=== PATIENT | male | born 1950 | race Caucasian/White ===

== ENCOUNTER → 2022-06-06 11:32 | Outpatient (CLI) | payer MEDICARE, OTHER, SELFPAY ==
--- NOTE | 2022-06-06 11:47 | XR_ITS ---
FINAL REPORT CLINICAL HISTORY: HIGH RISK MEDICATION FINDINGS: Two views of the chest were obtained. The heart size and pulmonary vascularity are within normal limits. The mediastinum is normal. There is chronic elevation of the right diaphragm. There is mild right lung base atelectasis. There is a stable chronic calcified granuloma in the right lung base. There is no evidence of interstitial lung disease. There is no pneumothorax. The bony thorax is intact. IMPRESSION: Mild right lung base atelectasis. No evidence of interstitial lung disease. Reviewed, Interpreted and Dictated by Zander Logan MD Transcribed by Hafsa Lunsford Authenticated and [facility]
== END ==
PROVIDERS: PCP Internal Medicine Adolescent Medicine; Visit Provider Internal Medicine Adolescent Medicine
DX: Z79.899 Other long term (current) drug therapy (principal)
CPT/HCPCS: 71046

== ENCOUNTER → 2022-06-11 09:21 | Outpatient (CLI) | payer MEDICARE, OTHER, SELFPAY ==
--- NOTE | 2022-06-11 09:26 | MR_ITS ---
FINAL REPORT CLINICAL HISTORY: BILATERAL HEADACHES. PT STATES VILLALOBOS'S X'S 6 MONTHS. FINDINGS: Multiplanar MR imaging of the brain was performed without contrast. There is age-appropriate atrophy. There are scattered foci of increased T2 signal in the cerebral white matter that have a nonspecific appearance but likely represent moderate chronic ischemic/gliotic changes. There is no evidence of intracranial hemorrhage or mass. No abnormal ventricular dilatation is identified. No abnormal extra-axial fluid collection is seen. No abnormality is seen on the diffusion weighted images. The posterior fossa and brainstem are unremarkable. Normal major vessel vascular flow voids are seen. There is severe mucosal thickening in the right maxillary sinus. There is mucosal thickening in several other sinuses. IMPRESSION: Age-appropriate atrophy and moderate chronic ischemic/gliotic changes. No acute intracranial abnormality. Sinus disease as above. Reviewed, Interpreted and Dictated by Fransisco Toscano III, MD Transcribed by Martin Adam Authenticated and [facility]
== END ==
PROVIDERS: PCP Internal Medicine Adolescent Medicine; Visit Provider Internal Medicine Adolescent Medicine
DX: R51.9 Headache, unspecified (principal)
CPT/HCPCS: 70551

== ENCOUNTER → 2023-01-12 11:28 | Outpatient (POV) | payer MEDICARE, OTHER, SELFPAY | PROVIDERS: Visit Provider Specialist/Technologist | DX: Z00.00 Encounter for general adult medical examination without abnormal findings (principal) ==

== ENCOUNTER → 2023-03-20 16:16 | Outpatient (CLI) | payer MEDICARE, OTHER, SELFPAY ==
--- NOTE | 2023-03-20 16:21 | XR_ITS ---
PROCEDURE INFORMATION: Exam: XR Right Knee Exam date and time: 03/20/2023 4:33 PM Age: 72 years old Clinical indication: Other: Mass; Additional info: Mass lower RT leg TECHNIQUE: Imaging protocol: Radiologic exam of the right knee. Views: 1 or 2 views. COMPARISON: No relevant prior studies available. FINDINGS: Bones/joints: No evidence of acute fracture or malalignment. No significant knee joint effusion. Patellar enthesopathy. Soft tissues: Unremarkable. IMPRESSION: 1. No evidence of acute osseous abnormality in the right knee. 2. Patellar enthesopathy. PROCEDURE INFORMATION: Exam: XR Right Ankle Exam date and time: 03/20/2023 4:33 PM Age: 72 years old Clinical indication: Other: Mass; Additional info: Mass lower RT leg TECHNIQUE: Imaging protocol: Radiologic exam of the right ankle. Views: 1 or 2 views. COMPARISON: No relevant prior studies available. FINDINGS: Bones/joints: No evidence of acute fracture or malalignment. No evidence of abnormal bone lesion or periosteal reaction. Soft tissues: Unremarkable. IMPRESSION: No evidence of acute osseous abnormality in the right tibia or fibula. PROCEDURE INFORMATION: Exam: XR Right Tibia and Fibula Exam date and time: 03/20/2023 4:33 PM Age: 72 years old Clinical indication: Other: Mass; Additional info: Mass lower RT leg TECHNIQUE: Imaging protocol: Radiologic exam of the right tibia and fibula. Views: 2 views. COMPARISON: No relevant prior studies available. FINDINGS: Bones/joints: No evidence of acute fracture or malalignment. No ankle joint effusion. Coarse calcifications at the Achilles tendon insertion compatible with calcific tendinopathy. Plantar calcaneal enthesophyte. Soft tissues: Unremarkable. IMPRESSION: 1. No evidence of acute osseous abnormality in the right ankle. 2. Coarse calcifications at the Achilles tendon insertion compatible with calcific tendinopathy. 3. Plantar calcaneal enthesophyte.
== END ==
PROVIDERS: PCP Internal Medicine Adolescent Medicine; Visit Provider Internal Medicine Adolescent Medicine
DX: R22.41 Localized swelling, mass and lump, right lower limb (principal)
CPT/HCPCS: 73590

== ENCOUNTER 2023-05-26 11:24 | Day surgery (SDC) | payer MEDICARE, OTHER, SELFPAY ==
[2023-05-24 13:34] VITALS: BMI 35.9
--- NOTE | 2023-05-26 11:35 | EXP.GEN.HP ---
HPI HPI HPI: Patient is a very pleasant 72-year-old male referred by Dr. Huan Rizzo for upper endoscopy. He was seen in the office on 03/28/2023. He has a history of hypertension, hyperlipidemia, type 2 diabetes. He is on Eliquis. Patient had previously lived in the area years ago and had moved to [place]. Last April he moved back to the area. He does describe a longstanding history of reflux and dyspepsia type symptoms. He has been on omeprazole for quite some time. He does state that recently he had significant acid reflux type symptoms. He describes substernal burning pain and then had reflux of acid into his mouth. He had ongoing substernal discomfort for some time. He does describe longstanding history of symptoms for several years and has been on omeprazole. He does describe gas bloating, belching, burping, and dyspepsia type symptoms. He has had symptoms of postprandial epigastric pain, bloating, belching, followed by diarrhea. He still does have his gallbladder. He had undergone some sort of investigative study in [place] which sounds like he drank some contrast and had a scope done simultaneously. [facility] Disclaimer: The information contained in this section may have been updated after the patient was seen, as this information can be updated by other users. Medical History CAD (coronary artery disease) HLD (hyperlipidemia) HTN (hypertension), benign Sinusitis T2DM (type 2 diabetes mellitus) Tinnitus Surgical History History of cardiac catheterization Stented coronary artery Family History Other Cancer Coronary artery disease Family history of COPD (chronic obstructive pulmonary disease) Social History (Updated 05/26/23 @ 11:38 by Luis Alberto Jacobs CRNA) Smoking Status: Former smoker alcohol intake: never substance use type: denies use current occupational status: retired Travel in the last 8 weeks: Inside the [place] Review of Systems Review of Systems Review of systems:: pertinent systems reviewed and negative unless documented below Meds Home Medications and Allergies Home Medications Medication Instructions Recorded Confirmed Type amlodipine 5 mg-benazepril 40 mg 1 cap PO DAILY 12/07/22 03/28/23 History capsule apixaban 5 mg tablet (Eliquis) 5 mg PO BID 12/07/22 03/28/23 History atorvastatin 80 mg tablet 80 mg PO DAILY 12/07/22 03/28/23 History carvedilol 12.5 mg tablet 12.5 mg PO CONSULT PHARMACY bp 12/07/22 03/28/23 History citalopram 20 mg tablet 20 mg PO DAILY 12/07/22 03/28/23 History dronedarone 400 mg tablet (Multaq) 400 mg PO BID 12/07/22 03/28/23 History dulaglutide 1.5 mg/0.5 mL 1.5 mg SQ WEEKLY 12/07/22 03/28/23 History subcutaneous pen injector (Trulicity) fluticasone propionate 50 2 spray intranasal DAILY allergies 12/07/22 03/28/23 Rx mcg/actuation nasal #16 grams spray,suspension (Flonase Allergy Relief) levocetirizine 5 mg tablet (Xyzal) 5 mg PO DAILY #30 tabs 12/07/22 03/28/23 Rx omeprazole 40 mg capsule,delayed 40 mg PO DAILY 12/07/22 03/28/23 History release New Prescriptions to Start Prescriptions: Allergies Allergy/AdvReac Type Severity Reaction Status Date / Time No Known Allergies Allergy Verified 05/26/23 11:37 Exam Data for Last 24 hours I & O for Last 24 hours: Intake & Output 05/23/23 05/24/23 05/25/23 05/26/23 11:59 11:59 11:59 11:59 Weight 250 lb Constitutional Constitutional: no acute distress *Routine HEENT Exam Head: Present normocephalic Eye: Present EOMI and PERRL ENT: Present mucous membranes moist *Routine Neck Exam Neck: Present supple; Absent lymphadenopathy *Routine Respiratory Exam Respiratory: Present CTA bilaterally *Routine Cardiovascular Exam Cardiovascular: Present RRR *Routine Abdominal Exam Abdominal
--- NOTE | 2023-05-26 11:38 | P.PNANES_ITS ---
[facility] Disclaimer: The information contained in this section may have been updated after the patient was seen, as this information can be updated by other users. Medical History CAD (coronary artery disease) HLD (hyperlipidemia) HTN (hypertension), benign Sinusitis T2DM (type 2 diabetes mellitus) Tinnitus Surgical History History of cardiac catheterization Stented coronary artery Family History Other Cancer Coronary artery disease Family history of COPD (chronic obstructive pulmonary disease) Social History Smoking Status: Former smoker alcohol intake: never substance use type: denies use current occupational status: retired Travel in the last 8 weeks: Inside the [facility] Anesthesia Checklist Patient Identification Patient Identification: Arm Band and Verbal (Name & ) Structural Data Admitted From: Home Planned Operative Procedure/s: EGD Consent for Planned Operative Procedure(s) Verified: Yes NPO Status Verified Time NPO: 00:00 Additional verifications Anesthesia Reactions: No Airway Assessment Mallampati Score:: Class II C-Spine Mobility Assessed: Yes TMJ Mobility Assessed: Yes Dentition: Dentures-poor fitting Neurological Assessment Level of Consciousness: Awake Hx Seizures: No Numbness or tingling in extremities: No Anesthesia Plan Anesthesia Risk discussed: Yes Anesthesia Plan: Verified ASA Class: III Anesthesia Type: MAC
[2023-05-26 11:39] VITALS: BP 159/92; PULSE 76; RESP 18; TEMP 36.2; O2SAT 94
[2023-05-26 11:49] LABS: POC Glucose,Bedside 124 (70-110)
[2023-05-26 11:55] VITALS: O2SAT 97
--- NOTE | 2023-05-26 12:12 | HMH.SCOPE ---
Procedure: Date: 05/26/23 Patient Date of :: 1950 Procedure Performed:: Esophagogastroduodenoscopy with biopsies Indications:: Patient is a very pleasant 72-year-old male referred by Dr. Huan Rizzo for upper endoscopy. He was seen in the office on 03/28/2023. He has a history of hypertension, hyperlipidemia, type 2 diabetes. He is on Eliquis. Patient had previously lived in the area years ago and had moved to [place]. Last April he moved back to the area. He does describe a longstanding history of reflux and dyspepsia type symptoms. He has been on omeprazole for quite some time. He does state that recently he had significant acid reflux type symptoms. He describes substernal burning pain and then had reflux of acid into his mouth. He had ongoing substernal discomfort for some time. He does describe longstanding history of symptoms for several years and has been on omeprazole. He does describe gas bloating, belching, burping, and dyspepsia type symptoms. He has had symptoms of postprandial epigastric pain, bloating, belching, followed by diarrhea. He still does have his gallbladder. He had undergone some sort of investigative study in [place] which sounds like he drank some contrast and had a scope done simultaneously. Performing Provider:: Fransisco Jack MD Referring Provider:: Huan Rizzo MD Sedation:: MAC sedation Procedure:: Patient history was obtained and appropriate physical examination was performed. Patient's medications and allergies were reviewed. Informed consent was obtained after explaining the benefits, alternatives, and risks of the procedure including, but not limited to, bleeding, perforation, missed lesions, and adverse reaction to anesthesia medications. Patient was transported to endoscopy procedure room. Patient was connected to monitoring devices. Throughout the procedure the patient's blood pressure, pulse, and oxygen saturations were monitored continuously. Patient identification and planned procedure were verified by the staff. Patient was positioned in lateral decubitus position. Olympus endoscope was inserted via the oropharynx. Esophagus was cannulated. There was some significant tortuosity of the esophagus consistent with esophageal dysmotility. Gastroesophageal junction was encountered at approximately 38 cm from the incisors. There was nonobstructing benign-appearing Schatzki's ring at the gastroesophageal junction. Stomach was cannulated and insufflated. Retroflexion revealed a tiny sliding hiatal hernia. There was moderate diffuse gastropathy characterized by erythema and induration and edema of the gastric mucosa. There was an inflamed appearing polyp, likely fundic gland polyp. Pylorus was traversed. Duodenum appeared normal. A couple of duodenal biopsies were obtained using cold biopsy forceps. Several biopsies were obtained within the gastric lumen for histopathologic analysis and H. pylori assessment. Regarding the inflamed appearing polyp, it was removed with hot snare due to the potential for bleeding since it appeared inflamed. A couple of biopsies were obtained at the gastroesophageal junction at the site of nonobstructing Schatzki's ring. Stomach was desufflated and the endoscope was withdrawn. . Findings:: Findings of tortuous esophagus consistent with esophageal dysmotility Nonobstructing Schatzki's ring at 38 cm Tiny sliding hiatal hernia Moderate diffuse gastropathy Inflamed gastric polyp Recommendations:: Medical therapy pending pathology Complications:: None immediately apparent Estimated blood obtained (mL): 4 Colonoscopy Component Colonoscopy Component Was a colonoscopy performed during today's procedure?: No
[2023-05-26 12:13] VITALS: BP 120/91; PULSE 99; RESP 17; TEMP 36.4; O2SAT 94
[2023-05-26 12:23] VITALS: BP 109/55; PULSE 88; RESP 18; O2SAT 95
[2023-05-26 12:33] VITALS: BP 127/78; PULSE 81; RESP 18; O2SAT 97
[2023-05-26 12:43] VITALS: BP 129/76; PULSE 89; RESP 16; O2SAT 97
== END 2023-05-26 12:45 | disposition home or self-care (01) ==
PROVIDERS: PCP Internal Medicine Adolescent Medicine; Visit Provider Surgery
PROC: 0DJ08ZZ Inspection of Upper Intestinal Tract, Via Natural or Artificial Opening Endoscopic (ICD-10-PCS; CPT 43235; principal; 2023-05-26 12:30)
DX: K22.4 Dyskinesia of esophagus; K44.9 Diaphragmatic hernia without obstruction or gangrene; K31.89 Other diseases of stomach and duodenum; K21.00 Gastro-esophageal reflux disease with esophagitis, without bleeding; K31.7 Polyp of stomach and duodenum; E11.9 Type 2 diabetes mellitus without complications
CPT/HCPCS: 43239; 82962; 88305; J2704

== ENCOUNTER → 2023-06-27 08:52 | Outpatient (CLI) | payer MEDICARE, OTHER, SELFPAY ==
--- NOTE | 2023-06-27 08:58 | XR_ITS ---
FINAL REPORT CLINICAL HISTORY: LOW BACK PAIN FINDINGS: 4 views were obtained. There is no acute fracture. Alignment is within normal limits. The disc spaces are maintained. There is moderate facet sclerosis in the lower lumbar spine. There is vascular calcification of the abdominal aorta. IMPRESSION: No acute process. Reviewed, Interpreted and Dictated by Nael Falcon MD Transcribed by Martin Adam Authenticated and [facility]
--- NOTE | 2023-06-27 08:58 | US_ITS ---
FINAL REPORT CLINICAL HISTORY: H/O OF TOBACCO USE FINDINGS: Sonographic images were obtained of the abdominal aorta. The abdominal aorta measures up to 18 mm in greatest dimensions. The common iliac arteries are within normal limits. IMPRESSION: No evidence of aortic aneurysm. Reviewed, Interpreted and Dictated by Nael Falcon MD Transcribed by Martin Adam Authenticated and [facility]
== END ==
PROVIDERS: PCP Internal Medicine Adolescent Medicine; Visit Provider Internal Medicine Adolescent Medicine
DX: M54.50 Low back pain, unspecified (principal); Z87.891 Personal history of nicotine dependence
CPT/HCPCS: 72110; 76705

== ENCOUNTER 2023-07-17 15:26 | Outpatient (CLI) | payer MEDICARE, OTHER, SELFPAY ==
--- NOTE | 2023-07-17 | XR_ITS ---
FINAL REPORT CLINICAL HISTORY: .acute bronchitis COMPARISON: 06/06/2022 FINDINGS: Two views of the chest were obtained. The heart size and pulmonary vascularity are within normal limits. The mediastinum is normal. There is elevation of the right diaphragm. There is mild right base atelectasis. There is no pneumothorax. There are moderate degenerative changes in the thoracic spine. IMPRESSION: Elevation right diaphragm with mild right base atelectasis. Reviewed, Interpreted and Dictated by Fransisco Toscano III, MD Transcribed by Delores Dorman Authenticated and [facility]
== END 2023-07-17 23:59 ==
PROVIDERS: PCP Internal Medicine Adolescent Medicine; Visit Provider Internal Medicine Adolescent Medicine
DX: G47.33 Obstructive sleep apnea (adult) (pediatric) (principal); G47.36 Sleep related hypoventilation in conditions classified elsewhere; J20.9 Acute bronchitis, unspecified; Z87.891 Personal history of nicotine dependence
CPT/HCPCS: 71046; G0399

== ENCOUNTER 2023-11-08 06:15 | Outpatient (CLI) | payer MEDICARE, OTHER, SELFPAY ==
--- NOTE | 2023-11-08 | CT_ITS ---
FINAL REPORT TECHNIQUE: Axial CT without IV contrast administration. This study was performed with techniques to keep radiation doses as low as reasonably achievable (ALARA). Individualized dose reduction techniques using automated exposure control or adjustment of mA and/or kV according to the patient's size were employed. CLINICAL HISTORY: DYSPNEA FINDINGS: No acute lung disease is present. There is mild atelectasis in the right lung base. No pleural or pericardial effusion is seen. No adenopathy or mass lesion is present. IMPRESSION: No findings to account for patient's symptoms. Reviewed, Interpreted and Dictated by Zander Logan MD Transcribed by Maggie Dumont Authenticated and [facility]
[2023-11-08] MEDS: ALBUTEROL 0.083% 2.5 MG/3 ML NEB IH (07:51)
== END 2023-11-08 23:59 | disposition home or self-care (01) ==
PROVIDERS: PCP Internal Medicine Adolescent Medicine; Visit Provider Internal Medicine Adolescent Medicine
DX: R06.09 Other forms of dyspnea (principal)
CPT/HCPCS: 71250; 94060; 94726; 94729

== ENCOUNTER 2024-02-10 18:08 | Inpatient (IN) | payer MEDICARE, OTHER, SELFPAY ==
[2024-02-10] VITALS (18 sets, daily range): BP systolic 116–152; BP diastolic 64–86; PULSE 76–89; RESP 13–28; TEMP 36.6–37.2; O2SAT 2–96; BMI 37.3
--- NOTE | 2024-02-10 | IR_ITS ---
APPROVED REPORT Patient Location: Emergent Transport Operations Inspector: KIKO Astorga RT (R) PROCEDURES I Poppa catheter was used initially after access was obtained radially. This was able to access the right but not the left. An EBU 3.75 was used to access the left. INDICATION Evidence of recent infarct on EKG with Q waves in leads V1 through V3 and some ST elevation in lead V2. Informed consent was obtained prior to the procedure. COMPLICATIONS None Estimated Blood Loss: Less than 10 mls TECHNIQUE One percent lidocaine used to anesthetize the right anterior aspect of the wrist. The right radial artery was accessed via the Seldinger technique. A 6 Uzbek sheath was placed in the right radial artery. 2.5 mg of Verapamil, 800 mcg of nitroglycerin, 1mg Lidocaine and 5000 U Heparin were given through the arterial sheath. The papa catheter was also used to perform left heart catheterization, left ventriculogram and selective coronary angiogram. At the end of the procedure the sheath was removed good hemostasis was achieved using Traclet band, patient was transferred to the postop holding area in stable condition. ANGIOGRAPHIC RESULTS The left main artery Large vessel which supplies the ramus and LAD and the circumflex. There is a plaque in the distal left main which in some views appears to be about 20 to 30%. It appears to be a stable plaque. In the NAMIBIAN caudal view there is seem to be eccentric. In the cranial of the is it is calcified and in the inferior border but it does not appear to be an obstructive plaque. Patent stent was noted in the LAD. The left anterior descending artery Left anterior descending artery appears to be free of disease. However there was only RE II 1-2 flow in the LAD. It supplied a large first diagonal and then the distal LAD had [id number] flow in it. However there is no evidence of any obstructive disease in the LAD and this is thought potentially beaded due to high left ventricular end-diastolic pressure and a left ventricular aneurysm. The circumflex artery The circumflex is a codominant vessel. It supplies a small first obtuse marginal smaller second obtuse marginal and a large third obtuse marginal and then 2 small PLV's or even a left-sided PDA. There was some mild plaquing throughout the circumflex. There is also ramus intermedius vessel which is a very large vessel which bifurcated. This was essentially free of disease The right coronary artery Right coronary was a codominant vessel supplying a PDA. There was mild plaquing but no obstructive disease noted in the right coronary The BACA ventriculogram reveals Ventriculogram shows extremely poor LV function with an EF probably less than 25%. The anterior wall in particular the apex appears to be akinetic to dyskinetic. The left ventricular end-diastolic pressure Left ventricular diastolic pressure was hard to tell because of respiratory variation but it was at least 30. IMPRESSION Severely diminished EF Elevated LVEDP No evidence of acute coronary pathology Extremely slow flow in the LAD PLAN 1. Will diurese 2. Continue his antiplatelet and anticoagulant therapy with Plavix and Eliquis which she is on at home. 3. Titrate heart failure medications Electronically signed by : Bhupendra Carrion, 02/10/2024 20:55:38
--- NOTE | 2024-02-10 18:09 | ECG_ITS ---
APPROVED REPORT Exam: Resting ECG HR:90 bpm ECG Measurements Heart Rate 90 AXES QRSd 96 QRS 28 QT 351 T 114 QTc 398 Conclusion ATRIAL FIBRILLATION WITH ABERRANT CONDUCTION OR VENTRICULAR PREMATURE COMPLEXES SEPTAL MYOCARDIAL INFARCTION , PROBABLY RECENT [40+ ms Q WAVE IN V1/V2] ST elevation with biphasic T wave in V2, Q waves in the anterior leads, no definitive ST elevation in anatomical contiguous leads. Concerning for ischemia. Electronically signed by : CB MILIAN, 02/16/2024 15:05:46
--- NOTE | 2024-02-10 18:11 | ECG_ITS ---
APPROVED REPORT Exam: Resting ECG HR:78 bpm ECG Measurements Heart Rate 78 AXES QRSd 96 QRS 21 QT 370 T 104 QTc 403 Conclusion ATRIAL FIBRILLATION SEPTAL MYOCARDIAL INFARCTION , PROBABLY RECENT [40+ ms Q WAVE IN V1/V2] ACUTE SD UNCONFIRMED REPORT Electronically signed by : KE DEL CASTILLO, 02/11/2024 06:47:47
--- NOTE | 2024-02-10 18:15 | PC.NURSE ---
SPEAKING WITH KAZ
--- NOTE | 2024-02-10 18:44 | XR_ITS ---
PROCEDURE INFORMATION: Exam: XR Chest Exam date and time: 02/10/2024 6:43 PM Age: 73 years old Clinical indication: Shortness of breath; Additional info: Cp SOB TECHNIQUE: Imaging protocol: Radiologic exam of the chest. Views: 1 view. COMPARISON: CT CHEST WO CON 11/08/2023 6:35 AM FINDINGS: Lungs: Patchy bibasilar opacities. Pleural spaces: Unremarkable. No pleural effusion. No pneumothorax. Heart/Mediastinum: Unremarkable. No cardiomegaly. Bones/joints: Unremarkable. IMPRESSION: Bibasilar subsegmental atelectasis/infiltration.
--- NOTE | 2024-02-10 18:48 | ED_ITS ---
Discharge Plan Disposition Patient Disposition: Admitted Chief Complaint: Shortness of Breath/Dyspnea Prescriptions Prescriptions: No Action carvedilol 12.5 mg tablet 12.5 mg PO CONSULT PHARMACY Eliquis 5 mg tablet 5 mg PO BID atorvastatin 80 mg tablet 80 mg PO DAILY amlodipine-benazepril 5-40 mg capsule 1 cap PO DAILY Multaq 400 mg tablet 400 mg PO BID citalopram 20 mg tablet 20 mg PO DAILY Trulicity 1.5 mg/0.5 mL pen injector 1.5 mg SQ WEEKLY levocetirizine [Xyzal] 5 mg tablet 5 mg PO DAILY Qty: 30 3RF fluticasone propionate [Flonase Allergy Relief] 50 mcg/actuation spray,suspension 2 spray intranasal DAILY Qty: 16 3RF Rx Instructions: administer into each nostril pantoprazole 40 mg tablet,delayed release (DR/EC) 40 mg PO DAILY Qty: 30 5RF Referrals Follow up/Referrals: Provider,Referral, MD [Referring] - See instructions Clinical Impressions Clinical Impression: Chest pain, ACS (acute coronary syndrome) Print Language Print Language: Sammarinese Discharge ED Provider: Emerson Calderon General Chief Complaint: Shortness of Breath/Dyspnea Stated Complaint: chest pain Time Seen by Provider: 02/10/24 18:09 Mode of Arrival: Ambulatory Source of Information: Patient Limitations: No Limitations Description of Symptoms (Recalled from ER Triage Doc. by RN): pt presents to ED with c/o shortness of breath, intermittent chest pain, upper left quad abd pain. pt reports shortness of breath ongoing since monday. no home oxygen use. pt reports shortness of air worse with lying flat and excertion. History of Present Illness HPI narrative: Patient is a 73-year-old male with past medical history of chronic chest pain, coronary artery disease status post stenting who presents emergency department for evaluation of shortness of breath. Patient states that he has had substernal chest pain intermittently at baseline however it has become worse in the last week. He has single coronary artery stent from a maker . He had transient left upper quadrant abdominal pain at some point which is difficult to pinpoint, no vomiting or diarrhea, no dysuria and no current abdominal pain. His chest pain is largely subsided upon my questioning. He has paroxysmal shortness of breath spells that last to short amount of time with associated cough and states that he has previous history of pleurisy that feels similar. He is on anticoagulation for paroxysmal atrial fibrillation. No other acute complaints at this time. Related Data Home Medications ?Medication ?Instructions ?Recorded ?Confirmed amlodipine 5 mg-benazepril 40 mg 1 cap PO DAILY 12/07/22 06/15/23 capsule apixaban 5 mg tablet (Eliquis) 5 mg PO BID 12/07/22 06/15/23 atorvastatin 80 mg tablet 80 mg PO DAILY 12/07/22 06/15/23 carvedilol 12.5 mg tablet 12.5 mg PO CONSULT PHARMACY bp 12/07/22 06/15/23 citalopram 20 mg tablet 20 mg PO DAILY 12/07/22 06/15/23 dronedarone 400 mg tablet (Multaq) 400 mg PO BID 12/07/22 06/15/23 dulaglutide 1.5 mg/0.5 mL 1.5 mg SQ WEEKLY 12/07/22 06/15/23 subcutaneous pen injector (Trulicity) Previous Rx's ?Medication ?Instructions ?Recorded fluticasone propionate 50 2 spray intranasal DAILY allergies 12/07/22 mcg/actuation nasal #16 grams spray,suspension (Flonase Allergy Relief) levocetirizine 5 mg tablet (Xyzal) 5 mg PO DAILY #30 tabs 12/07/22 pantoprazole 40 mg tablet,delayed 40 mg PO DAILY #30 tabs 11/09/23 release Allergies Allergy/AdvReac Type Severity Reaction Status Date / Time No Known Allergies Allergy Verified 06/15/23 09:31 [facility] Disclaimer: The information contained in this section may have been updated after the patient was seen, as this information can be updated by other users. Medical History (Updated 02/10/24 @ 19:15 by Emerson Calderon MD) CAD (coronary artery disease) Sinusitis Tinnitus T2DM (type 2 diabetes mellitus) HLD (hyperlipidemia) HTN (hypertension), benign Surgical History (Updated 06/15/23 @ 09:32 by JORDYN Charlton) History of esophagogastroduodenoscopy (EGD) Stented coronary artery History of cardiac catheterization Family History Other Cancer Coronary artery disease Family history of COPD (chronic obstructive pulmonary disease) Social History Smoking Status: Former smoker alcohol intake: never substance use type: denies use current occupational status: retired Travel in the last 8 weeks: Inside the [place] ROS Obtained: Yes Systems reviewed as appropriate & no additional complaints except as documented Physical Exam General General appearance: alert and in no apparent distress Head Head exam: atraumatic and normocephalic Eye Eye exam: Present PERRL and EOMI ENT ENT exam: Present mucous membranes moist Neck Neck exam: Present normal inspection Chest Chest inspection: Present normal inspection and symmetric chest wall rise Respiratory Respiratory exam: Present normal lung sounds bilaterally; Absent respiratory distress Cardiovascular Cardiovascular exam: Present regular rate and normal rhythm Abdominal Exam Abdominal exam: Present soft; Absent tenderness, guarding or rebound Extremities Exam Extremities exam: Present other (1+ pitting edema bilateral lower extremities) Neurological Exam Neurological exam: Present alert; Absent motor sensory deficit Psychiatric Psychiatric exam: Present normal affect Skin Skin exam: Present warm and dry HEART Score HEART Score HEART Score assessment performed?: Yes History (anamnesis): Highly suspicious ECG: Non-specific disturbance Age: 45-65 years Risk factors: Atherosclerosis history Troponin: > 3x normal limit HEART Score: 8 Critical Care Critical Care Time Critical Care Time: Yes Attestation: On 02/10/24, the high probability of a clinically significant, sudden or life threatening deterioration of the following system(s) required my full and direct attention, intervention and personal management. The time I documented below is in addition to time spent performing reported procedures but includes the following listed in this critical care notation. Total Time Total Critical Care Time: 40 Medical Decision Making Robe Inquiry Pt receiving controlled substance: No Vital Signs Vital Signs: 02/10/24 18:09 02/10/24 18:30 02/10/24 19:00 Temperature 98.9 F Temperature Source Oral Pulse Rate 82 79 Pulse Rate [Left Radial] 88 Respiratory Rate 13 20 28 H Blood Pressure 133/74 152/71 H Blood Pressure [Right Arm] 144/79 H Blood Pressure Mean [Right Arm] 100 02 Sat by Pulse Oximetry 96 94 L 93 L Oxygen Delivery Method Room Air Room Air Room Air Lab Data Labs: Lab Results 02/10/24 18:12: WBC 4.7 L, RBC 3.41 L, Hgb 12.3 L, Hct 38.9 L, MCV 114.0 H, MCH 36.1 H, MCHC 31.7 L, RDW 13.6, Plt Count 273, MPV 8.6, Neut % (Auto) 63.7, Lymph % (Auto) 21.6, Chaves % (Auto) 12.4 H, Eos % (Auto) 1.4, Baso % (Auto) 0.9, Neut # (Auto) 3.0, Lymph # (Auto) 1.0, Chaves # (Auto) 0.6, Eos # (Auto) 0.1, Baso # (Auto) 0.0, D-Dimer 0.40, Sodium 140, Potassium 3.6, Chloride 108 H, Carbon Dioxide 28, Anion Gap 7.6, BUN 21 H, Creatinine 1.50 H, Estimated Creat Clear 71, Estimated GFR 46 L, Est GFR ( Amer) 55 L, Glucose 109 H, Calcium 8.8, Total Bilirubin 0.8, AST 41, ALT 17, Alkaline Phosphatase 64, Total Protein 6.5, Albumin 3.5, Globulin 3.0, Albumin/Globulin Ratio 1.2, Lipase 117 02/10/24 18:59: VBG pH 7.41, VBG pCO2 38.6, VBG pO2 49.6 H, VBG HCO3 24.1, VBG Total CO2 25.3, VBG O2 Saturation 82.8 H, VBG Base Excess -0.5, VBG Lactic Acid 1.3 02/10/24 18:12 02/10/24 18:12 Response Orders (Tests/Meds): ED MEDICATIONS Discontinued Medications Generic Name Dose Route Start Last Admin Trade Name Ashwin PRN Reason Stop Dose Admin Acetaminophen 1,000 mg 02/10/24 18:44 02/10/24 18:51 Acetaminophen 1,000mg/100ml Vial IV 02/10/24 18:45 1,000 mg ONCE ONE Administration Aspirin 324 mg 02/10/24 18:53 02/10/24 18:59 Aspirin 81mg Chewable Tablet PO 02/10/24 18:54 324 mg ONCE ONE Administration Belladonna Alkaloids 60 ml 02/10/24 18:53 02/10/24 18:59 Belladonna Alkaloids 60 Ml Ml PO 02/10/24 18:54 60 ml ONCE ONE Administration Ketorolac Tromethamine 30 mg 02/10/24 18:44 02/10/24 18:52 Ketorolac 30mg/Ml Vial IV 02/10/24 18:45 30 mg ONCE ONE Administration ORDERS Category Date Time Status CXR --portable [XR chest portable] Stat Exams 02/10/24 18:44 Taken POCUS Point of Care (ER Only) Stat Exams 02/10/24 18:44 Ordered BNP [NT Pro Brain Natriuretic Pep.] Stat Lab 02/10/24 18:12 Received CBC w/Auto Diff [Complete Blood Count Auto Diff] Stat Lab 02/10/24 18:12 Completed CMP [Comprehensive Metabolic Panel] Stat Lab 02/10/24 18:12 Results D-Dimer Stat Lab 02/10/24 18:12 Completed Lipase Stat Lab 02/10/24 18:12 Results Trop I [Troponin I] Stat Lab 02/10/24 18:12 Results Troponin I Q3H Lab 02/10/24 21:45 Ordered Troponin I Q3H Lab 02/11/24 00:45 Ordered VBG [Venous Blood Gas] Stat RT 02/10/24 18:59 Completed ECG Data Tracing #1: ECG Narrative: Independently inter by me rate is 90, rhythm is regular, axis is normal, no ST elevation in anatomical contiguous leads, isolated ST elevation in V2 with possible Wellens. QTc 398. Tracing #2: ECG Narrative: Independently interpreted by me rate is 78, rhythm is regular, axis is normal, no ST elevation in anatomical contiguous leads, isolated ST elevation in V2. QTc 403. MDM Narrative Medical Decision Narrative: In summary patient is a 73-year-old male with past medical history described above who presents emergency department for evaluation of paroxysmal shortness of breath and stuttering chest pain. Patient is hemodynamically stable nontoxic-appearing upon arrival, afebrile. EKG at bedside has ST elevation in lead V2 with Q waves in the septal anterior leads, no ST elevation in anatomical contiguous leads however this is concerning for critical lesion versus completing infarct. Serial EKG shows no changes. Workup will be conducted with hematologic labs, chest x-ray, VBG, D-dimer, troponin. Initial inventions include aspirin, Ofirmev, GI cocktail, Toradol. Troponin has not resulted yet and the case was discussed with cardiology on-call given EKG is concerning although no definitive STEMI cardiology agrees patient will likely benefit from expeditious heart catheterization and suspects he may have had a heart attack on Monday given the Q waves. Patient will proceed to heart catheterization at this time. After Director Child Abuse Therapy was activated troponin was called to charge nurse, 1.4. Given this this does line up with patient having ACS earlier this week when his chest pain arose.
[2024-02-10] MEDS: ACETAMINOPHEN 1,000MG/100ML VIAL 1000 MG IV (18:51)
[2024-02-10] MEDS: KETOROLAC 30MG/ML VIAL 30 MG IV (18:52)
[2024-02-10 18:53] LABS: Basophils % 0.9 % (0.1-2.0); Eosinophils # 0.1 K/mm3 (0.0-0.4); Eosinophils % 1.4 % (0.1-12.0); Hematocrit 38.9 % (42.0-52.0); Hemoglobin 12.3 g/dL (14.1-18.0); Lymphocytes % 21.6 % (10-50); Mean Corpuscular HGB Conc 31.7 g/dL (31.8-35.4); Mean Corpuscular Hemoglobin 36.1 pg (27.0-31.2); Mean Platelet Volume 8.6 fl (7.4-10.4); Monocytes # 0.6 K/mm3 (0.1-1.0); Monocytes % 12.4 % (1.7-9.3); Neutrophils % 63.7 % (37.0-80.0); Platelet Count 273 K/mm3 (142-424); Red Blood Count 3.41 M/mm3 (4.60-6.20); Red Cell Distribution Width 13.6 % (11.5-17.5); White Blood Count 4.7 K/mm3 (4.8-10.8)
[2024-02-10 18:56] LABS: Alanine Aminotransferase 17 U/L (12-78); Albumin Level 3.5 g/dl (3.5-5.0); Albumin/Globulin Ratio 1.2 (1.1-1.8); Alkaline Phosphatase 64 U/L (38-126); Anion Gap 7.6 mEq/L (5-15); Aspartate Amino Transferase 41 U/L (17-59); Bilirubin,Total 0.8 mg/dl (0.2-1.3); Blood Urea Nitrogen 21 mg/dl (9-20); Calcium 8.8 mg/dl (8.4-10.2); Carbon Dioxide 28 mmol/L (22.0-30.0); Chloride 108 mmol/L (98-107); Creatinine Clearance Estimated 71 mL/min (50-200); Estimated Glomerular Filt Rate 46 ml/min (>60); GFR (African American) 55 ML/MIN (>60); Glucose 109 mg/dl (74-100); Lipase 117 U/L (23-300); Potassium 3.6 mmoL/L (3.5-5.1); Sodium 140 mmol/L (136-145); Total Protein,Serum 6.5 g/dl (6.3-8.2)
[2024-02-10] MEDS: BELLADONNA ALKALOIDS 60 ML ML PO (18:59)
[2024-02-10] MEDS: ASPIRIN 81MG CHEWABLE TABLET 324 MG PO (18:59)
[2024-02-10 19:03] LABS: Lactate Venous 1.3 mmol/L (0.4-2.0); VBG Base Excess -0.5 mmol/L (-2.4-2.3); VBG HCO3 24.1 mmol/L (23-30); VBG Oxygen Saturation 82.8 % (50-70); VBG PCO2 38.6 mmol/L (35-51); VBG PH 7.41 mmol/L (7.31-7.41); VBG PO2 49.6 mmol/L (28-40); VBG Total CO2 25.3 mmol/L (23-27)
--- NOTE | 2024-02-10 19:03 | PC.NURSE ---
Pt provided with remote. No other needs voiced.
--- NOTE | 2024-02-10 19:09 | PC.NURSE ---
Per Dr. Calderon we are activating STEMI alert after he spoke to cardiology at this time. Solar System Designer team paged now
--- NOTE | 2024-02-10 19:10 | PC.NURSE ---
Patient placed on Zoll with pads in place. LAC in place and flushes well. Clothing removed and placed in patient belonging bag, along with wallet and cellphone.
--- NOTE | 2024-02-10 19:13 | PC.NURSE ---
[address]
[2024-02-10 19:14] LABS: Troponin I 1.41 ng/ml (0.00-0.034)
--- NOTE | 2024-02-10 19:14 | PC.NURSE ---
Troponin 1.[address] Calderon
[2024-02-10 19:28] LABS: NT Pro Brain Natriuretic Pep. 5260 pg/mL (0-450)
--- NOTE | 2024-02-10 19:36 | PC.NURSE ---
Spoke with Nat Joyce, patient sister who has been updated on patient condition per patient request. Her # [phone]
--- NOTE | 2024-02-10 19:54 | PC.NURSE ---
pt headed up to dentures lab technician at this time
[2024-02-10] MEDS: diphenhydrAMINE 50MG/ML VIAL 50 MG IV (20:20)
[2024-02-10] MEDS: MIDAZOLAM HCL 1MG/1ML 5ML VIAL 1 MG IV (20:20)
[2024-02-10] MEDS: LIDOCAINE 1% 10ML MDV 20 ML IJ (20:21)
[2024-02-10] MEDS: FENTANYL 100MCG/2ML VIAL 50 MCG IV (20:21)
[2024-02-10] MEDS: HEPARIN 1,000 UNITS/ML 10ML VIAL (CATH LAB) 10000 UNIT IV (20:21)
[2024-02-10] MEDS: NITROGLYCERIN 800MCG/8ML SYR (CATH LAB) 800 MCG IA (20:22)
[2024-02-10] MEDS: VERAPAMIL 2.5MG/ML 2ML VIAL 2.5 MG IV (20:22)
[2024-02-10] MEDS: FUROSEMIDE 40MG/4ML VIAL 40 MG IV (20:49)
[2024-02-10] MEDS: IOPAMIDOL-370 (76%);100ML BOTTLE 90 ML IV (20:53)
--- NOTE | 2024-02-10 21:14 | PC.NURSE ---
Patient arrived to floor via stretcher from cathode washer at 21:13.
[2024-02-10 21:43] LABS: Basophils % 0.6 % (0.1-2.0); Eosinophils # 0.1 K/mm3 (0.0-0.4); Eosinophils % 1.3 % (0.1-12.0); Hematocrit 33.9 % (42.0-52.0); Hemoglobin 11.7 g/dL (14.1-18.0); Lymphocytes # 0.8 K/mm3 (0.7-4.5); Mean Corpuscular HGB Conc 34.6 g/dL (31.8-35.4); Mean Corpuscular Hemoglobin 37.9 pg (27.0-31.2); Mean Corpuscular Volume 109.6 fl (80-94); Mean Platelet Volume 7.9 fl (7.4-10.4); Monocytes # 0.3 K/mm3 (0.1-1.0); Monocytes % 7.4 % (1.7-9.3); Neutrophils # 2.6 K/mm3 (1.8-7.8); Neutrophils % 69.6 % (37.0-80.0); Platelet Count 242 K/mm3 (142-424); Red Blood Count 3.09 M/mm3 (4.60-6.20); White Blood Count 3.7 K/mm3 (4.8-10.8)
[2024-02-10 21:55] LABS: Anion Gap 9.8 mEq/L (5-15); Blood Urea Nitrogen 22 mg/dl (9-20); Calcium 8.3 mg/dl (8.4-10.2); Carbon Dioxide 27 mmol/L (22.0-30.0); Chloride 106 mmol/L (98-107); Creatinine Clearance Estimated 67 mL/min (50-200); Estimated Glomerular Filt Rate 42 ml/min (>60); GFR (African American) 51 ML/MIN (>60); Glucose 99 mg/dl (74-100); Potassium 3.8 mmoL/L (3.5-5.1); Sodium 139 mmol/L (136-145)
[2024-02-10 22:09] LABS: Troponin I 1.42 ng/ml (0.00-0.034)
--- NOTE | 2024-02-10 22:29 | P.HP_ITS ---
History of Present Illness *Admission Date: 02/10/24 *Reason for visit:: Acute myocardial infarction, with pulmonary congestion *History of present illness: This patient approximately a week ago had apparently had an myocardial infarction.. Has a long history of cardiovascular disease CABG also has been cath at [facility] in the past. Approximately a week ago began to have more chest pain he normally takes nitroglycerin up to about 5 a day for his angina some days he does not take any. He described he began to have mid chest pain which is normal for him but in his right arm on the anterior portion of his elbow he began to have pain. Main reason for coming in was increased problems with respiration feeling short of breath. He was seen by the emergency room physician and worked up. Cardiology was called and he has plans and was taken to the [facility]. Frequency: daily (Patient noted that he takes on average up to 4-5 sublingual nitroglycerin a day due to his ongoing angina) Pain location: substernal (Has chest tightness but what was new was the fact he was feeling pain at the anterior right elbow) Quality: sharp Pain scale (0-10): 5 Pain radiation: right arm (To right elbow) Relieved by: >1 NTG spray or tablet Initial episode: 1-3 days Duration of symptoms: >1 year Duration of episodes: 3-5 mins Provocation: physical exertion and none/resting Associated symptoms: Reports dyspnea, dyspnea on exertion and fatigue Medication compliance: good Most Recent Cardiac Tests: Chest X-Ray 02/10/24 Anginal Functional Assessment Dressing/ADLs: pain is somewhat limiting Walking more than one block: pain is somewhat limiting Climbing flight of stairs: pain is somewhat limiting Heavy lifting: pain is limiting Vigorous exercise: pain is limiting PFSH PFS Disclaimer: The information contained in this section may have been updated after the patient was seen, as this information can be updated by other users. Medical History CAD (coronary artery disease) Sinusitis Tinnitus T2DM (type 2 diabetes mellitus) HLD (hyperlipidemia) HTN (hypertension), benign Surgical History History of esophagogastroduodenoscopy (EGD) Stented coronary artery History of cardiac catheterization Family History Other Cancer Coronary artery disease Family history of COPD (chronic obstructive pulmonary disease) Social History Smoking Status: Former smoker alcohol intake: never substance use type: denies use current occupational status: retired Travel in the last 8 weeks: Inside the [place] Review of Systems Review of Systems Review of systems:: pertinent systems reviewed and negative unless documented below Constitutional Constitutional: Reports fatigue and Reports lethargy Eyes Eyes: Reports system reviewed and no additional complaints, except as documented ENT Ears, Nose, Mouth, and Throat: Reports system reviewed and no additional complaints, except as documented *Cardiovascular Cardiovascular: Reports as per HPI, Reports chest pain, Reports chest pain at rest, Reports chest pain with activity, Reports dyspnea, Reports dyspnea on exertion and Reports leg edema *Respiratory Respiratory: Reports dyspnea and Reports dyspnea on exertion *Gastrointestinal Gastrointestinal: Reports system reviewed and no additional complaints, except as documented *Genitourinary Genitourinary: Reports system reviewed and no additional complaints, except as documented and Reports urinary frequency *Neurologic Neurologic: Reports system reviewed and no additional complaints, except as documented Psychiatric Psychiatric: Reports system reviewed and no additional complaints, except as documented Endocrine Endocrine: Reports system reviewed and no additional complaints, except as documented and Reports fatigue Hematologic/Lymphatic Hematologic/Lymphatic: Reports system reviewed and no additional complaints, except as documented Allergic/Immunologic Allergic/Immunologic: Reports system reviewed and no additional complaints, except as documented Meds Home Medications and Allergies Home Medications ?Medication ?Instructions ?Recorded ?Confirmed ?Type apixaban 5 mg tablet (Eliquis) 5 mg PO BID 12/07/22 02/10/24 History atorvastatin 80 mg tablet 80 mg PO DAILY 12/07/22 02/10/24 History carvedilol 12.5 mg tablet 12.5 mg PO BID bp 12/07/22 02/10/24 History citalopram 20 mg tablet 20 mg PO DAILY 12/07/22 02/10/24 History dronedarone 400 mg tablet (Multaq) 400 mg PO BID 12/07/22 02/10/24 History dulaglutide 1.5 mg/0.5 mL 1.5 mg SQ WEEKLY 12/07/22 02/10/24 History subcutaneous pen injector (Trulicity) pantoprazole 40 mg tablet,delayed 40 mg PO DAILY #30 tabs 05/02/24 08/03/24 Rx release alfuzosin 10 mg tablet,extended 10 mg PO DAILY 02/10/24 02/10/24 History release 24 hr budesonide-formoterol HFA 160 2 puff inhalation BID 02/10/24 02/10/24 History mcg-4.5 mcg/actuation aerosol inhaler fluticasone propionate 50 2 spray intranasal DAILY PRN 02/10/24 02/10/24 History mcg/actuation nasal allergies spray,suspension (Flonase Allergy Relief) ranolazine 1,000 mg 1,000 mg PO BID 02/10/24 02/10/24 History tablet,extended release,12 hr amlodipine 2.5 mg-benazepril 10 mg 1 cap PO DAILY 02/11/24 02/11/24 History capsule New Prescriptions to Start Prescriptions: Allergies Allergy/AdvReac Type Severity Reaction Status Date / Time No Known Allergies Allergy Verified 06/15/23 09:31 Exam Data for Last 24 hours Vital signs and Labs for Last 24 Hours: Temp Pulse Resp BP Pulse Ox O2 Del Method O2 Flow Rate 98.7 F 82 17 135/76 91 L Room Air 2 02/10/24 20:40 02/10/24 21:10 02/10/24 21:10 02/10/24 21:10 02/10/24 21:10 02/10/24 21:10 02/10/24 19:51 Laboratory Results - last 24 hr 02/10/24 18:12: WBC 4.7 L, RBC 3.41 L, Hgb 12.3 L, Hct 38.9 L, MCV 114.0 H, MCH 36.1 H, MCHC 31.7 L, RDW 13.6, Plt Count 273, MPV 8.6, Neut % (Auto) 63.7, Lymph % (Auto) 21.6, Barnwell % (Auto) 12.4 H, Eos % (Auto) 1.4, Baso % (Auto) 0.9, Neut # (Auto) 3.0, Lymph # (Auto) 1.0, Barnwell # (Auto) 0.6, Eos # (Auto) 0.1, Baso # (Auto) 0.0, D-Dimer 0.40, Sodium 140, Potassium 3.6, Chloride 108 H, Carbon Dioxide 28, Anion Gap 7.6, BUN 21 H, Creatinine 1.50 H, Estimated Creat Clear 71, Estimated GFR 46 L, Est GFR ( Amer) 55 L, Glucose 109 H, Calcium 8.8, Total Bilirubin 0.8, AST 41, ALT 17, Alkaline Phosphatase 64, Troponin I 1.41 H, NT-Pro-B Natriuret Pep 5260 H, Total Protein 6.5, Albumin 3.5, Globulin 3.0, Albumin/Globulin Ratio 1.2, Lipase 117 02/10/24 18:59: VBG pH 7.41, VBG pCO2 38.6, VBG pO2 49.6 H, VBG HCO3 24.1, VBG Total CO2 25.3, VBG O2 Saturation 82.8 H, VBG Base Excess -0.5, VBG Lactic Acid 1.3 02/10/24 21:35: WBC 3.7 L, RBC 3.09 L, Hgb 11.7 L, Hct 33.9 L, MCV 109.6 H, MCH 37.9 H, MCHC 34.6, RDW 14.0, Plt Count 242, MPV 7.9, Neut % (Auto) 69.6, Lymph % (Auto) 21.0, Barnwell % (Auto) 7.4, Eos % (Auto) 1.3, Baso % (Auto) 0.6, Neut # (Auto) 2.6, Lymph # (Auto) 0.8, Barnwell # (Auto) 0.3, Eos # (Auto) 0.1, Baso # (Auto) 0.0, Sodium 139, Potassium 3.8, Chloride 106, Carbon Dioxide 27, Anion Gap 9.8, BUN 22 H, Creatinine 1.60 H, Estimated Creat Clear 67, Estimated GFR 42 L, Est GFR ( Amer) 51 L, Glucose 99, Calcium 8.3 L, Troponin I 1.42 H I & O for Last 24 hours: Intake & Output 02/07/24 02/08/24 02/09/24 02/10/24 23:59 23:59 23:59 23:59 Weight 117.934 kg Constitutional Constitutional: moderate distress, obese and cooperative Comments: Short of air but able to speak complete sentences *Routine HEENT Exam Head: Present normocephalic and atraumatic Eye: Present EOMI and PERRL ENT: Present mucous membranes moist *Routine Neck Exam Neck: Present supple and full ROM Routine Chest/Breast/Axilla Exam Comments: Normal exam for chest this has normal shape *Routine Respiratory Exam Respiratory: Present accessory muscle use, CTA bilaterally, diminished air movement, able to speak in complete sentences and symmetric chest movement Comments: Patient is using accessory muscles. He has had increased shortness of breath over the last week now using accessory muscles requiring oxygen at 2 L to keep saturations above 93%, Lungs are clear in all deras there is no rattle or crackling patient is moving good air there is equal expansion. Upper airway is clear of any adverse's respiratory sounds. Patient is able to talk to me in full sentences but does have to take a break and take a few breaths before he continues *Routine Cardiovascular Exam Cardiovascular: Present Normal S1, Normal S2, tachycardia and irregular rhythm Comments: Heart sounds there was no significant murmurs. It was irregular and beat the heart sounds like it is working hard there was no significant findings of any bruits in either of the jugular vessels *Routine Abdominal Exam Abdominal: Present soft, normoactive bowel sounds and obese Comments: No abdominal pain slightly overweight with a rounded belly, but no signs of hernia or abdominal discomfort *Routine Rectal Exam Rectal:: deferred *Routine Genitalia Exam Genitalia:: deferred *Routine Extremities Exam Extremities: Present full ROM, pulses intact and normal capillary refill Comments: Both lower extremities are quite large but there is no sign of any pitting edema., Routine Back/Spine/Pelvis Exam Back/Spine: Present full ROM Comments: There is no sign of any injury and has good movement able to sit up and move in the bed by himself he was not stood for this exam *Routine Skin Exam Skin: Present intact and dry Comments: Noting that the patient is very tanned, says he has been out mowing his yard and actually recently been to [facility]. Noted on his lips just above are several viral type scabbed over lesions. 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 He is definitely a friendly person and he has quite a good insight as to what is going on H&P: Result Impressions 1. Stable angina not becoming unstable, probable RI last week, resulting in decreased cardiac output, some pulmonary edema with shortness of breath. 2. decreased urinary output with some indication of renal insufficiency developing, patient was given Lasix in the [facility]. On my exam he is only given 200 cc of urine out bladder scan was done showing the bladder empty Imaging and Cardiology TESTING: Status: final report Additional comments: Bricklayer Tender gave me a update of catheterization findings by phone., Noting a decreased ejection fraction down to 25% a significant increase in left ventricular pressure with diastolic dysfunction. No significant blockages were found. That all vessels were basically open but did have a forward and reversing flow in the LAD blood vessel. He felt this was from the extremely high pressures in the left ventricle at diastole. The agile developer has given him diuretics in the [facility] to see if this will help clear his lungs of some of the fluid as he feels this event has led to a decrease in left ventricular ejection fraction. It is noted that the patient did not require oxygen before this event last week. Chest x-ray: Status: image reviewed by me and final report Additional comments: Chest x-ray showed some diffuse infiltrate with blunting of the lower borders. Assessment and Plan *Assessment and plan (1) ACS (acute coronary syndrome): Status: Acute Category: Medical Code(s): I24.9 - Acute ischemic heart disease, unspecified (2) Chest pain: Status: Acute Category: Medical Code(s): R07.9 - Chest pain, unspecified (3) Anemia: Status: Acute Category: Medical Code(s): D64.9 - Anemia, unspecified (4) Renal insufficiency: Status: Acute Category: Medical Code(s): N28.9 - Disorder of kidney and ureter, unspecified (5) Elevated troponin: Status: Acute Category: Medical Code(s): R79.89 - Other specified abnormal findings of blood chemistry (6) Atelectasis of both lungs: Status: Acute Category: Medical Code(s): J98.11 - Atelectasis (7) Atrial fibrillation: Status: Acute Category: Medical Code(s): I48.91 - Unspecified atrial fibrillation (8) Heart failure, ACC/AHA stage C with decreased ejection fraction: Status: Acute Category: Medical Code(s): I50.20 - Unspecified systolic (congestive) heart failure (9) Elevated left ventricular end-diastolic pressure (LVEDP): Status: Acute Category: Medical Code(s): R94.30 - Abnormal result of cardiovascular function study, unspecified Plan 73-year-old male who presented with chest pain. Found to have elevated troponin. Discussed case with ER physician, request admission after heart cath. Medicine agreed to admit. Taken to the [facility] urgently for suspected STEMI. Found to have no flow-limiting lesions but did have bidirectional flow in his coronary arteries and severely depressed EF with elevated end-diastolic pressure. Admitted after procedure. Aggressively managing medical needs. Problems addressed as follows: 1. Emergency room physician called me came down to the ER talked with the ER physician and the patient patient has been scheduled by the ER physician with cardiology and will be going to the Social Media [facility] first before admitted to the floor. After the patient had finished in the [facility] and returned to the floor the agile developer updated me on his findings. He expressed concerned about the decreased ejection fraction being 25% noting that the main problem was the left ventricular diastolic ejection fraction pressures. And some retrograde movement of blood in the left arterial descending vessel. No significant blockages were found he felt there may have been a clot but it had cleared by the time they had him to the Social Media [facility]. Patient will be admitted to the floor and monitored at this point in time for urinary output to see if lung function will improve. If there is no significant urinary output will repeat diuretic and if need be placed the patient on BiPAP. 2. For low O2 saturations new onset requiring oxygen: Will have respiratory set BiPAP up in the room since the patient is using accessory muscles and I feel that he may tire out before morning. Patient will remain on oxygen to keep saturations 93% or greater. Even though lungs are not wheezing may need to add nebulizer to see if we can open up any restriction to improve airflow. Would feel comfortable doing this since the catheterization showed no blockages. 3. Atrial fibs, patient is already on Eliquis per cardiology note will add Plavix. 4. Increased respiratory needs: Due to the cath findings and the patient's change in his normal status over the past week we will move the patient to the stepdown unit. I do feel there is a good chance he will worsen if were not able to diurese him, that his body can adjust to this lower ejection fraction. Full code Heparinized in [facility] Cardiac diet Rounded on patient after nurse practitioner. Personally examined and interviewed patient. Agree with exam findings and care plan as documented.
[2024-02-11] VITALS (17 sets, daily range): BP systolic 107–138; BP diastolic 48–79; PULSE 69–84; RESP 13–24; TEMP 36.5–37; O2SAT 93–97; BMI 37.4
--- NOTE | 2024-02-11 00:05 | PC.NURSE ---
2300- pt noted to have bleeding from tr band. 4 ml of air total had been removed. placed 4 ml of air back into tr band. instructed pt to avoid using arm and do not pull up with hand.
--- NOTE | 2024-02-11 00:05 | PC.NURSE ---
took over care from Carolina JONES at 0000.
--- NOTE | 2024-02-11 00:06 | PC.NURSE ---
5880- called in critical trop to michelle brenner, student development specialist of 1.42. reported to provider sats 91% on 2l/nc and pt using using accessory abdominal muscles.
--- NOTE | 2024-02-11 00:10 | PC.NURSE ---
0297 pt moved to sd rm 215. report given to mike
--- NOTE | 2024-02-11 00:27 | P.EN_ITS ---
Problem respiratory insufficiency, talking with his nurse decided we were going to give the BiPAP a try as the patient was still using accessory muscles just lying in bed trying to rest. She then brought up that he told her he uses CPAP at home.. During my initial interview he never volunteered this information he said yeah just did not tell you. So talking with him and our respiratory therapist were going to go ahead and try the BiPAP first. Add enough oxygen as needed to keep saturations above 92% if unable to tolerate BiPAP will change mode to CPAP. 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 He reports no chest pain at this time. Respiratory therapist was in room during this discussion and will adjust to the needs of the patient from BiPAP and CPAP as needed. Plan, hopefully with the BiPAP will help open the lungs clear some of the congestion. Will reevaluate urine output and may add Bumex here in the moment if urine output is not more than a couple 100 cc.
[2024-02-11] MEDS: BUMETANIDE 1MG/4ML VIAL 1 MG IV ×2 (00:50→11:25)
--- NOTE | 2024-02-11 01:08 | PC.NURSE ---
2114-pt arrived to rm 3 from the labor commissioner. pt alert and oriented x4, o2@2l/nc, denies cp but reports soa and wheezing, pt placed on underground miner and cont pulse ox monitor. tr band to right wrist soft, no bleeding or hematoma noted. +2 radial pulse. pt voided 200 ml. pvr 6 ml. pt reports thirst and hunger. meal provided.
[2024-02-11 01:16] LABS: Troponin I 1.16 ng/ml (0.00-0.034)
--- NOTE | 2024-02-11 05:11 | PC.NURSE ---
Patient alert and oriented x4. Patient has been able to sleep well throughout the shift. Post-angio cath vitals were completed by 03:35. Radial band was removed at 04:00; at this time, no bleeding, abnormal temperature, or drainage was noted to site. Right wrist site was covered with folded 4x4s and a tegaderm dressing after band removal this shift. Patient has not had any complaints of pain at the site or any generalized pain. Patient was transferred to step-down at around 23:30 this shift. Patient was placed on BIPAP at 00:21 by RT and has been tolerating it well. Patient also voiced at one point during the night when asked that it has been working for him and usually uses a CPAP at home. Patient's O2 sats have remained within the upper 90s on BIPAP through the night.
[2024-02-11 09:05] LABS: Basophils % 0.6 % (0.1-2.0); Eosinophils # 0.1 K/mm3 (0.0-0.4); Eosinophils % 1.3 % (0.1-12.0); Hemoglobin 11.4 g/dL (14.1-18.0); Lymphocytes # 0.5 K/mm3 (0.7-4.5); Lymphocytes % 13.4 % (10-50); Mean Corpuscular HGB Conc 32.6 g/dL (31.8-35.4); Mean Corpuscular Hemoglobin 36.7 pg (27.0-31.2); Mean Corpuscular Volume 112.5 fl (80-94); Mean Platelet Volume 8.1 fl (7.4-10.4); Monocytes # 0.3 K/mm3 (0.1-1.0); Monocytes % 8.4 % (1.7-9.3); Neutrophils % 76.2 % (37.0-80.0); Platelet Count 230 K/mm3 (142-424); Red Blood Count 3.11 M/mm3 (4.60-6.20); Red Cell Distribution Width 13.8 % (11.5-17.5); White Blood Count 3.9 K/mm3 (4.8-10.8)
[2024-02-11 09:13] LABS: Albumin Level 3.4 g/dl (3.5-5.0)
[2024-02-11 09:14] LABS: Chloride 108 mmol/L (98-107); Potassium 3.7 mmoL/L (3.5-5.1); Sodium 138 mmol/L (136-145)
[2024-02-11 09:16] LABS: Alanine Aminotransferase 15 U/L (12-78); Alkaline Phosphatase 66 U/L (38-126); Anion Gap 6.7 mEq/L (5-15); Aspartate Amino Transferase 38 U/L (17-59); Bilirubin,Total 0.9 mg/dl (0.2-1.3); Blood Urea Nitrogen 22 mg/dl (9-20); Carbon Dioxide 27 mmol/L (22.0-30.0); Creatinine Clearance Estimated 63 mL/min (50-200); Estimated Glomerular Filt Rate 39 ml/min (>60); GFR (African American) 48 ML/MIN (>60)
[2024-02-11 09:17] LABS: Albumin/Globulin Ratio 1.3 (1.1-1.8); Calcium 8.1 mg/dl (8.4-10.2); Globulin 2.6 g/dL (1.3-3.2); Glucose 115 mg/dl (74-100); Magnesium 1.8 mg/dl (1.6-2.3)
[2024-02-11] MEDS: CLOPIDOGREL 75MG TAB 75 MG PO (09:23)
[2024-02-11] MEDS: CITALOPRAM 20MG TABLET 20 MG PO (09:23)
[2024-02-11] MEDS: CARVEDILOL 12.5MG TABLET 12.5 MG PO (09:23)
[2024-02-11] MEDS: APIXABAN 5MG TABLET 5 MG PO ×2 (09:23→21:51)
[2024-02-11] MEDS: LISINOPRIL 20MG TABLET 40 MG PO (09:23)
[2024-02-11] MEDS: AMLODIPINE 5MG TABLET 5 MG PO (09:24)
[2024-02-11] MEDS: RANOLAZINE 500MG ER TABLET 1000 MG PO ×2 (09:24→21:52)
[2024-02-11] MEDS: PANTOPRAZOLE 40MG TABLET 40 MG PO (09:24)
[2024-02-11] MEDS: ISOSORBIDE MONO 30MG TAB.ER.24H 30 MG PO (11:27)
--- NOTE | 2024-02-11 12:33 | EXP.ACUTE.PN ---
Subjective *Date: 02/11/24 *Time: 18:24 Medical Exam Vital signs and Labs for Last 24 Hours: Vital Signs Temp Pulse Pulse Pulse Resp BP BP 02/11/24 11:00 02/11/24 08:10 02/11/24 08:00 80 02/11/24 08:00 97.9 F 02/11/24 08:00 80 20 134/71 02/11/24 06:38 02/11/24 06:35 02/11/24 06:00 69 15 134/75 02/11/24 05:00 97.7 F 02/11/24 05:00 02/11/24 04:47 74 02/11/24 04:00 70 02/11/24 04:00 70 13 119/66 02/11/24 04:00 71 14 02/11/24 03:38 02/11/24 03:25 83 16 138/79 02/11/24 03:00 02/11/24 02:25 74 13 108/65 L 02/11/24 02:00 70 14 130/71 02/11/24 01:25 83 19 130/71 02/11/24 01:00 02/11/24 00:38 02/11/24 00:25 97.8 F 82 20 125/66 02/11/24 00:00 84 02/11/24 00:00 02/10/24 23:55 81 22 116/64 02/10/24 23:25 80 20 131/68 02/10/24 22:57 98.6 F 77 20 134/72 02/10/24 22:55 98.6 F 76 20 134/72 02/10/24 22:25 80 20 147/86 H 02/10/24 22:25 80 20 147/86 H 02/10/24 21:55 78 20 136/71 02/10/24 21:40 78 20 138/71 02/10/24 21:30 22 02/10/24 21:25 97.8 F 81 20 130/75 02/10/24 21:10 82 17 135/76 02/10/24 20:55 89 19 138/75 02/10/24 20:50 89 18 142/77 H 02/10/24 20:45 88 17 136/72 02/10/24 20:40 98.7 F 87 88 20 140/82 02/10/24 19:51 98.1 F 83 19 131/71 02/10/24 19:00 79 28 H 152/71 H 02/10/24 18:30 82 20 133/74 02/10/24 18:09 98.9 F 88 13 144/79 H Pulse Ox O2 Del Method O2 Flow Rate FiO2 02/11/24 11:00 Nasal Cannula 2 02/11/24 08:10 Nasal Cannula 2 02/11/24 08:00 02/11/24 08:00 02/11/24 08:00 96 Nasal Cannula 2 02/11/24 06:38 35 02/11/24 06:35 BiPAP 02/11/24 06:00 97 BiPAP 02/11/24 05:00 02/11/24 05:00 BiPAP 02/11/24 04:47 02/11/24 04:00 02/11/24 04:00 95 BiPAP 02/11/24 04:00 95 BiPAP 02/11/24 03:38 35 02/11/24 03:25 95 BiPAP 02/11/24 03:00 BiPAP 02/11/24 02:25 97 BiPAP 02/11/24 02:00 97 BiPAP 02/11/24 01:25 97 BiPAP 02/11/24 01:00 BiPAP 02/11/24 00:38 35 02/11/24 00:25 96 BiPAP 02/11/24 00:00 02/11/24 00:00 Nasal Cannula 2 02/10/24 23:55 95 Nasal Cannula 2 02/10/24 23:25 95 Nasal Cannula 2 02/10/24 22:57 92 L Nasal Cannula 2 02/10/24 22:55 92 L Nasal Cannula 2 02/10/24 22:25 93 L Nasal Cannula 2 02/10/24 22:25 2 L Nasal Cannula 93 02/10/24 21:55 91 L Nasal Cannula 02/10/24 21:40 91 L Nasal Cannula 2 02/10/24 21:30 91 L Nasal Cannula 2 02/10/24 21:25 91 L Nasal Cannula 2 02/10/24 21:10 91 L Room Air 02/10/24 20:55 94 L Room Air 02/10/24 20:50 93 L Room Air 02/10/24 20:45 92 L Room Air 02/10/24 20:40 92 L Room Air 02/10/24 19:51 Nasal Cannula 2 02/10/24 19:00 93 L Room Air 02/10/24 18:30 94 L Room Air 02/10/24 18:09 96 Room Air Intake and Output 02/10/24 02/11/24 02/11/24 23:59 07:59 15:59 Intake Total 150 / 470 320 / 470 Output Total 1075 / 1075 Balance -925 / -605 320 / -605 Intake: Intake, Oral Amount 150 / 470 320 / 470 Output: Output, Urine Amount 1075 / 1075 Other: Weight 117.934 kg 118.524 kg Patient Weight 02/11/24 23:59 Weight 118.524 kg Laboratory Results - last 24 hr 02/10/24 18:12: WBC 4.7 L, RBC 3.41 L, Hgb 12.3 L, Hct 38.9 L, MCV 114.0 H, MCH 36.1 H, MCHC 31.7 L, RDW 13.6, Plt Count 273, MPV 8.6, Neut % (Auto) 63.7, Lymph % (Auto) 21.6, [place] % (Auto) 12.4 H, Eos % (Auto) 1.4, Baso % (Auto) 0.9, Neut # (Auto) 3.0, Lymph # (Auto) 1.0, [place] # (Auto) 0.6, Eos # (Auto) 0.1, Baso # (Auto) 0.0, D-Dimer 0.40, Sodium 140, Potassium 3.6, Chloride 108 H, Carbon Dioxide 28, Anion Gap 7.6, BUN 21 H, Creatinine 1.50 H, Estimated Creat Clear 71, Estimated GFR 46 L, Est GFR ( Amer) 55 L, Glucose 109 H, Calcium 8.8, Total Bilirubin 0.8, AST 41, ALT 17, Alkaline Phosphatase 64, Troponin I 1.41 H, NT-Pro-B Natriuret Pep 5260 H, Total Protein 6.5, Albumin 3.5, Globulin 3.0, Albumin/Globulin Ratio 1.2, Lipase 117 02/10/24 18:59: VBG pH 7.41, VBG pCO2 38.6, VBG pO2 49.6 H, VBG HCO3 24.1, VBG Total CO2 25.3, VBG O2 Saturation 82.8 H, VBG Base Excess -0.5, VBG Lactic Acid 1.3 02/10/24 21:35: WBC 3.7 L, RBC 3.09 L, Hgb 11.7 L, Hct 33.9 L, MCV 109.6 H, MCH 37.9 H, MCHC 34.6, RDW 14.0, Plt Count 242, MPV 7.9, Neut % (Auto) 69.6, Lymph % (Auto) 21.0, [place] % (Auto) 7.4, Eos % (Auto) 1.3, Baso % (Auto) 0.6, Neut # (Auto) 2.6, Lymph # (Auto) 0.8, [place] # (Auto) 0.3, Eos # (Auto) 0.1, Baso # (Auto) 0.0, Sodium 139, Potassium 3.8, Chloride 106, Carbon Dioxide 27, Anion Gap 9.8, BUN 22 H, Creatinine 1.60 H, Estimated Creat Clear 67, Estimated GFR 42 L, Est GFR ( Amer) 51 L, Glucose 99, Calcium 8.3 L, Troponin I 1.42 H 02/11/24 00:45: Troponin I 1.16 H 02/11/24 07:54: WBC 3.9 L, RBC 3.11 L, Hgb 11.4 L, Hct 35.0 L, MCV 112.5 H, MCH 36.7 H, MCHC 32.6, RDW 13.8, Plt Count 230, MPV 8.1, Neut % (Auto) 76.2, Lymph % (Auto) 13.4, [place] % (Auto) 8.4, Eos % (Auto) 1.3, Baso % (Auto) 0.6, Neut # (Auto) 3.0, Lymph # (Auto) 0.5 L, [place] # (Auto) 0.3, Eos # (Auto) 0.1, Baso # (Auto) 0.0, Sodium 138, Potassium 3.7, Chloride 108 H, Carbon Dioxide 27, Anion Gap 6.7, BUN 22 H, Creatinine 1.70 H, Estimated Creat Clear 63, Estimated GFR 39 L, Est GFR ( Amer) 48 L, Glucose 115 H, Calcium 8.1 L, Magnesium 1.8, Total Bilirubin 0.9, AST 38, ALT 15, Alkaline Phosphatase 66, Total Protein 6.0 L, Albumin 3.4 L, Globulin 2.6, Albumin/Globulin Ratio 1.3 I & O for Labs for Last 24 Hours: Intake & Output 02/08/24 02/09/24 02/10/24 02/11/24 23:59 23:59 23:59 23:59 Intake Total 470 / 470 Output Total 1075 / 1075 Balance -605 / -605 Weight 117.934 kg 118.524 kg Assessment and Plan *Assessment and plan (1) ACS (acute coronary syndrome): Status: Acute Category: Medical Code(s): I24.9 - Acute ischemic heart disease, unspecified (2) Chest pain: Status: Acute Category: Medical Code(s): R07.9 - Chest pain, unspecified (3) Anemia: Status: Acute Category: Medical Code(s): D64.9 - Anemia, unspecified (4) Renal insufficiency: Status: Acute Category: Medical Code(s): N28.9 - Disorder of kidney and ureter, unspecified (5) Elevated troponin: Status: Acute Category: Medical Code(s): R79.89 - Other specified abnormal findings of blood chemistry (6) Atelectasis of both lungs: Status: Acute Category: Medical Code(s): J98.11 - Atelectasis (7) Atrial fibrillation: Status: Acute Category: Medical Code(s): I48.91 - Unspecified atrial fibrillation (8) Heart failure, ACC/AHA stage C with decreased ejection fraction: Status: Acute Category: Medical Code(s): I50.20 - Unspecified systolic (congestive) heart failure (9) Elevated left ventricular end-diastolic pressure (LVEDP): Status: Acute Category: Medical Code(s): R94.30 - Abnormal result of cardiovascular function study, unspecified Plan 73-year-old male who presented with chest pain. Found to have elevated troponin. Discussed case with ER physician, request admission after heart cath. Medicine agreed to admit. Taken to the [facility] urgently for suspected STEMI. Found to have no flow-limiting lesions but did have bidirectional flow in his coronary arteries and severely depressed EF with elevated end-diastolic pressure. Admitted after procedure. Aggressively managing medical needs. Problems addressed as follows: STEMI ACS Acute heart failure with reduced ejection fraction A-fib HLD -Cardiology consulted, patient taken to [facility]. No flow-limiting lesions but has bidirectional flow in coronaries due to heart failure -Troponin peaked at 1.05. -Aggressively diuresing. Continue Bumex IV, negative over 1 L since admission -Supplemental oxygen as needed for dyspnea. Goal sats greater 90%. Weaned to room air on morning rounds -Continue Eliquis 5 mg twice - Continue Lipitor 80 mg nightly, continue carvedilol 6.25 mg twice daily, continue Plavix 75 mg daily. Initiate isosorbide mononitrate 30 mg daily for persistent anginal symptoms - Continue ranolazine 1000 mg twice daily - Patient's dronedarone not on formulary, will continue when available. 4 mg twice daily. BPH: Continue tamsulosin 0.4 mg nightly Depression: Continue citalopram 20 mg daily Pantoprazole 40 mg daily for GERD Sleep apnea: Wears CPAP at night at home. Continue CPAP therapy during admission Full code Eliquis Cardiac diet
--- NOTE | 2024-02-11 17:55 | PC.NURSE ---
PT IS RESTING IN BED. ALERT AND ORIENTED X4. PT REFUSED TO SIT UP IN THE CHAIR BUT WAS OKAY WITH SITTING ON THE SOB. LUNG SOUNDS DIMINISHED WITH SCATTERED WHEEZES. ABDOMEN SOFT/NON TENDER WITH ACTIVE BOWEL SOUNDS. 2+ EDEMA NOTED TO BLE. EATING AND DRINKING WELL. O2 SATURATION HAS MAINTAINED 90-94% ON ROOM AIR. WILL CONTINUE TO MONITOR.
[2024-02-11] MEDS: FLUTICASONE/SALMETEROL 250/50MCG DISKUS 1 PUFF IH (20:58)
[2024-02-11] MEDS: CARVEDILOL 6.25MG TABLET 6.25 MG PO (21:51)
[2024-02-11] MEDS: ATORVASTATIN 40MG TABLET 80 MG PO (21:51)
[2024-02-11] MEDS: TAMSULOSIN 0.4MG CAPSULE 0.4 MG PO (21:52)
[2024-02-12] VITALS (8 sets, daily range): BP systolic 104–141; BP diastolic 43–74; PULSE 60–100; RESP 16–27; TEMP 36.6–36.9; O2SAT 90–99; BMI 37.2
--- NOTE | 2024-02-12 05:44 | PC.NURSE ---
Patient is alert and oriented x4. Patient has been resting comfortably throughout the night. Patient tolerated room air well while awake at the beginning of the shift; patient was placed on CPAP by RT at around 22:53 tonight on 6. Patient's oxygen sats remained in the high 90s. Patient's lung sounds were clear but diminished upon auscultation, but scattered audible wheezing was noted. Moderate swelling in the patient's bilateral lower extremities has slightly decreased. Patient's heart rate was also noticed to be irregular upon auscultation. Patient has not had any complaints of chest pain or shortness of breath this shift. Patient voiced that he is feeling a lot better. Patient is currently resting supine, CPAP in place, at this time. Call light within reach.
[2024-02-12 08:44] LABS: Albumin Level 3.1 g/dl (3.5-5.0); Chloride 108 mmol/L (98-107)
[2024-02-12 08:45] LABS: Potassium 3.7 mmoL/L (3.5-5.1); Sodium 139 mmol/L (136-145)
[2024-02-12 08:47] LABS: Alanine Aminotransferase 21 U/L (12-78); Alkaline Phosphatase 65 U/L (38-126); Anion Gap 5.7 mEq/L (5-15); Aspartate Amino Transferase 105 U/L (17-59); Bilirubin,Total 0.9 mg/dl (0.2-1.3); Blood Urea Nitrogen 23 mg/dl (9-20); Carbon Dioxide 29 mmol/L (22.0-30.0); Creatinine Clearance Estimated 76 mL/min (50-200); Estimated Glomerular Filt Rate 49 ml/min (>60); GFR (African American) 60 ML/MIN (>60)
[2024-02-12 08:48] LABS: Albumin/Globulin Ratio 1.2 (1.1-1.8); Calcium 8.1 mg/dl (8.4-10.2); Globulin 2.5 g/dL (1.3-3.2); Glucose 166 mg/dl (74-100); Magnesium 1.8 mg/dl (1.6-2.3); Total Protein,Serum 5.6 g/dl (6.3-8.2)
[2024-02-12 08:52] LABS: Basophils % 0.4 % (0.1-2.0); Eosinophils # 0.1 K/mm3 (0.0-0.4); Eosinophils % 2.1 % (0.1-12.0); Hematocrit 35.4 % (42.0-52.0); Hemoglobin 11.4 g/dL (14.1-18.0); Lymphocytes # 0.6 K/mm3 (0.7-4.5); Lymphocytes % 15.2 % (10-50); Mean Corpuscular HGB Conc 32.3 g/dL (31.8-35.4); Mean Corpuscular Hemoglobin 35.8 pg (27.0-31.2); Mean Platelet Volume 8.4 fl (7.4-10.4); Monocytes # 0.3 K/mm3 (0.1-1.0); Neutrophils # 3.1 K/mm3 (1.8-7.8); Neutrophils % 74.2 % (37.0-80.0); Platelet Count 232 K/mm3 (142-424); Red Blood Count 3.19 M/mm3 (4.60-6.20); Red Cell Distribution Width 13.7 % (11.5-17.5); White Blood Count 4.2 K/mm3 (4.8-10.8)
[2024-02-12] MEDS: RANOLAZINE 500MG ER TABLET 1000 MG PO ×2 (09:44→21:38)
[2024-02-12] MEDS: CLOPIDOGREL 75MG TAB 75 MG PO (09:44)
[2024-02-12] MEDS: PANTOPRAZOLE 40MG TABLET 40 MG PO (09:44)
[2024-02-12] MEDS: APIXABAN 5MG TABLET 5 MG PO ×2 (09:44→21:38)
[2024-02-12] MEDS: CITALOPRAM 20MG TABLET 20 MG PO (09:44)
[2024-02-12] MEDS: CARVEDILOL 6.25MG TABLET 6.25 MG PO ×2 (09:45→21:38)
[2024-02-12] MEDS: BUMETANIDE 1MG/4ML VIAL 1 MG IV (09:45)
[2024-02-12] MEDS: ISOSORBIDE MONO 30MG TAB.ER.24H 30 MG PO (09:49)
--- NOTE | 2024-02-12 12:10 | EXP.CARD.CON ---
History of Present Illness History of Present Illness Consult date: 02/12/24 Requesting physician: Conor Rollins Consult reason: shortness of breath Chief complaint: Shortness of breath History of present illness: 73-year-old white male with history of multivessel CAD followed by Dr. Gonzalez at [facility]. Patient reports he had LAD stenting in [place] approximately 3 years ago. Last year while vacationing in [place] he had an episode of chest pain and went to the hospital locally, had heart cath repeated which was clear . States he had normal stress and echo at Dr. Gonzalez's office earlier this year. Presents here after having returned from the [place] last week with worsening dyspnea on exertion associate with shortness of breath and wheezing orthopnea, worse ambulating 20 feet, slightly improved with rest. On workup here he had proBNP 5260, flat troponins at 1.4, chest x-ray with bibasilar subsegmental atelectasis versus infiltration. BP stable. He underwent left heart cath yesterday which showed slow flow in the LAD but vessels were patent. He had severe anterior wall motion abnormality. 2D echo shows EF is 40%. He has diuresed about 1 L and feeling significantly better. [facility] Disclaimer: The information contained in this section may have been updated after the patient was seen, as this information can be updated by other users. Medical History CAD (coronary artery disease) Sinusitis Tinnitus T2DM (type 2 diabetes mellitus) HLD (hyperlipidemia) HTN (hypertension), benign Surgical History History of esophagogastroduodenoscopy (EGD) Stented coronary artery History of cardiac catheterization Family History Other Cancer Coronary artery disease Family history of COPD (chronic obstructive pulmonary disease) Social History Smoking Status: Former smoker alcohol intake: never substance use type: denies use current occupational status: retired Travel in the last 8 weeks: Inside the [facility] Review of Systems Constitutional Constitutional: Denies fatigue and Denies weakness Eyes Eyes: Denies loss of vision ENT Ears, Nose, Mouth, and Throat: Denies hearing loss *Cardiovascular Cardiovascular: Denies chest pain and Reports dyspnea *Respiratory Respiratory: Denies cough and Reports dyspnea *Gastrointestinal Gastrointestinal: Denies change in stool character, Denies nausea and Denies vomiting *Genitourinary Genitourinary: Denies difficulty urinating *Musculoskeletal Musculoskeletal: Denies muscle weakness Integumentary/Breasts Skin/Breast: Denies changing lesions *Neurologic Neurologic: Reports system reviewed and no additional complaints, except as documented, Denies loss of vision and Denies weakness Endocrine Endocrine: Denies fatigue Exam Data for Last 24 hours Vital signs and Labs for Last 24 Hours: Temp Pulse Resp BP Pulse Ox O2 Del Method O2 Flow Rate 98.1 F 100 H 17 104/43 L 95 Room Air 2 02/12/24 08:00 02/12/24 08:00 02/12/24 08:00 02/12/24 08:00 02/12/24 08:00 02/12/24 11:00 02/12/24 08:00 FiO2 35 02/12/24 06:41 Laboratory Results - last 24 hr 02/12/24 08:35: WBC 4.2 L, RBC 3.19 L, Hgb 11.4 L, Hct 35.4 L, MCV 111.0 H, MCH 35.8 H, MCHC 32.3, RDW 13.7, Plt Count 232, MPV 8.4, Neut % (Auto) 74.2, Lymph % (Auto) 15.2, [place] % (Auto) 8.0, Eos % (Auto) 2.1, Baso % (Auto) 0.4, Neut # (Auto) 3.1, Lymph # (Auto) 0.6 L, [place] # (Auto) 0.3, Eos # (Auto) 0.1, Baso # (Auto) 0.0, Sodium 139, Potassium 3.7, Chloride 108 H, Carbon Dioxide 29, Anion Gap 5.7, BUN 23 H, Creatinine 1.40 H, Estimated Creat Clear 76, Estimated GFR 49 L, Est GFR ( Amer) 60 D, Glucose 166 H, Calcium 8.1 L, Magnesium 1.8, Total Bilirubin 0.9, AST 105 H D, ALT 21 D, Alkaline Phosphatase 65, Total Protein 5.6 L, Albumin 3.1 L, Globulin 2.5, Albumin/Globulin Ratio 1.2 I & O for Last 24 hours: Intake & Output 02/09/24 02/10/24 02/11/24 02/12/24 23:59 23:59 23:59 23:59 Intake Total 1550 / 1670 480 / 480 Output Total 2475 / 2475 400 / 400 Balance -925 / -805 80 / 80 Weight 260 lb 261 lb 4.8 oz 260 lb 1.6 oz Constitutional Constitutional: no acute distress and cooperative *Routine HEENT Exam Eye: Present PERRL *Routine Respiratory Exam Respiratory: Present CTA bilaterally; Absent accessory muscle use, wheezes or crackles Comments: Slightly reduced breath sounds bilaterally *Routine Cardiovascular Exam Cardiovascular: Present RRR, Normal S1 and Normal S2; Absent murmur, gallop or rubs *Routine Abdominal Exam Abdominal: Present soft; Absent tenderness *Routine Extremities Exam Extremities: Present pulses intact; Absent cyanosis or edema *Routine Skin Exam Skin: Present intact; Absent erythema or wounds *Routine Neurological Exam Neurological: Present alert and oriented X3 Routine Psychiatric Exam Psychiatric: Present cooperative Meds Home Medications and Allergies Home Medications ?Medication ?Instructions ?Recorded ?Confirmed ?Type apixaban 5 mg tablet (Eliquis) 5 mg PO BID 12/07/22 02/10/24 History atorvastatin 80 mg tablet 80 mg PO DAILY 12/07/22 02/10/24 History carvedilol 12.5 mg tablet 12.5 mg PO BID bp 12/07/22 02/10/24 History citalopram 20 mg tablet 20 mg PO DAILY 12/07/22 02/10/24 History dronedarone 400 mg tablet (Multaq) 400 mg PO BID 12/07/22 02/10/24 History dulaglutide 1.5 mg/0.5 mL 1.5 mg SQ WEEKLY 12/07/22 02/10/24 History subcutaneous pen injector (Trulicity) pantoprazole 40 mg tablet,delayed 40 mg PO DAILY #30 tabs 11/09/23 02/10/24 Rx release alfuzosin 10 mg tablet,extended 10 mg PO DAILY 02/10/24 02/10/24 History release 24 hr budesonide-formoterol HFA 160 2 puff inhalation BID 02/10/24 02/10/24 History mcg-4.5 mcg/actuation aerosol inhaler fluticasone propionate 50 2 spray intranasal DAILY PRN 02/10/24 02/10/24 History mcg/actuation nasal allergies spray,suspension (Flonase Allergy Relief) ranolazine 1,000 mg 1,000 mg PO BID 02/10/24 02/10/24 History tablet,extended release,12 hr amlodipine 2.5 mg-benazepril 10 mg 1 cap PO DAILY 02/11/24 02/11/24 History capsule New Prescriptions to Start Prescriptions: Allergies Allergy/AdvReac Type Severity Reaction Status Date / Time No Known Allergies Allergy Verified 06/15/23 09:31 Assessment and Plan *Assessment and plan (1) Heart failure, ACC/AHA stage C with decreased ejection fraction: Status: Acute Category: Medical Code(s): I50.20 - Unspecified systolic (congestive) heart failure (2) Atrial fibrillation: Status: Acute Category: Medical Code(s): I48.91 - Unspecified atrial fibrillation (3) ACS (acute coronary syndrome): Status: Acute Category: Medical Code(s): I24.9 - Acute ischemic heart disease, unspecified (4) Elevated left ventricular end-diastolic pressure (LVEDP): Status: Acute Category: Medical Code(s): R94.30 - Abnormal result of cardiovascular function study, unspecified Plan Acute left systolic heart failure -New diagnosis this admission with EF 40% and proBNP 5260 -Patient has diuresed 1 L and feeling close to baseline -Left heart cath here shows no intervention warranted, severe anterior wall motion abnormality -Change home dose amlodipine benazepril to Entresto -Change home dose Trulicity to Farxiga -DC Multaq due to CHF which is a contraindication -Continue diuresis with Bumex 1 mg IV daily Multivessel CAD -Patient has newly reduced EF and had elevated troponin but left heart catheter showed slow flow disease with patent stents, no intervention warranted -Continue aspirin, Plavix, statin, beta-frank, Ranexa PAF - known dx - cont Eliquis and COreg - DC Multaq - contraindicated with acute CHF - will need a 2 weeks wash-out anyway, can f/u with his Childcare Provider post discharge to select possible alternative Type 2 diabetes -A1c 7.1 -Change Trulicity to Farxiga Obesity, BMI 37 - needs aggressive weight loss via diet/exercise - conssider OP GLP-1 CV improving. Med changes as above. Labs/vitals/ambulate in the morning - likely home tomorrow
[2024-02-12] MEDS: ACYCLOVIR 400MG TAB 400 MG PO ×2 (12:40→21:38)
--- NOTE | 2024-02-12 14:25 | CA_ITS ---
APPROVED REPORT EXAM: Comprehensive 2D, Doppler, and color-flow Echocardiogram Aquatics Instructor: Nicole Pardo CRT Ht: 5 ft 10 in Wt: 261lbs BSA: 2.34 BP: 131/71 mmHg Indications: Chest Pain, NC, stents, afib, KELL, HYN, HLD, DM, edema EF 25% on cath 02/10/24 2D Dimensions LA Volume 95.40 mL LA Volume Index 39.90 mL/m2 (M/F) 16-34 M-Mode Dimensions RVDd 2.13 cm (0.9-2.6) LA Diam 5.13 cm (1.9-4.0) LVDd 6.06 cm (3.5-5.7) LVDs 5.05 cm (3.5-5.7) IVSd 1.72 cm (0.6-1.1) PWd 0.67 cm (0.6-1.1) EF (Teich) 34.30% FS 16.70% EDV (Teich) 184.10 mL TAPSE 2.80 (<1.7) ESV (Teich) 121.00 mL LV Diastology E Decel Time 148 (160-240 msec) E/A Ratio 1.36 MED A' 9.40 cm/s LAT A' 11.70 cm/s Aortic Valve AO Peak GR. 5.60 mmHg Mitral Valve MV E Max Ward. 117.0 (40-130 cm/s) MV A Velocity 86.0 (40-130 cm/s) E/A Ratio 1.36 MV PHT 43.0 ms Pulmonary Valve PV Peak Velocity 107.0 (50-150 cm/s) Tricuspid Valve TR P. Velocity 257.00 cm/s RAP Estimate 10.00 mmHg RVSP 36.50 mmHg Left Ventricle The left ventricle is normal size. Left ventricular systolic function is mild to moderately decreased. There is increased LV wall thickness. There is mild to moderate global hypokinesis present. There is severe hypokinesis of the inferoseptal, septal and anteroseptal LV john. Transmitral Doppler flow pattern suggests impaired LV relaxation. LVEF is 40%. Right Ventricle The right ventricle is normal size. The right ventricular systolic function is normal. Atria Left atrium is mildly dilated. The right atrium size is normal. Color Doppler demonstrates possible left to right interatrial shunt. Aortic Valve The aortic valve is mildly thickened. There is no aortic valvular stenosis. No aortic regurgitation is present. Mitral Valve The mitral valve leaflets are mildly thickened. No evidence of mitral valve stenosis. Mild mitral regurgitation. Tricuspid Valve The tricuspid valve leaflets are thin and pliable. Mild tricuspid regurgitation. RVSP is 20-25 mmHg. Pulmonic Valve The pulmonary valve is normal in structure. Trace pulmonic regurgitation. Great Vessels The aortic root is normal in size. The ascending aorta is not well-visualized. IVC is normal in size and collapses >50% with inspiration. Pericardium There is no pericardial effusion. Other Information Study Quality: Technically Difficult Conclusion Technically difficult study due to poor acoustic windows. Mild to moderate reduction in global LV systolic function (LVEF 40%). Severe hypokinesis of the inferoseptal, septal and anteroseptal LV john. Mild LA dilation. Mild MR, mild TR. Future TTE evaluations are suggested with ultrasound enhancing agent to evaluate for the presence of LV thrombus in the setting of wall motion abnormalities. Electronically signed by : Elaine Hidalgo MD 02/12/2024 12:07:54
[2024-02-12] MEDS: ATORVASTATIN 40MG TABLET 80 MG PO (21:38)
[2024-02-12] MEDS: TAMSULOSIN 0.4MG CAPSULE 0.4 MG PO (21:39)
[2024-02-12] MEDS: SACUBITRIL/VALSARTAN 24-26MG TABLET 1 EACH PO (21:39)
--- NOTE | 2024-02-12 21:57 | P.PN_ITS ---
Subjective *Date: 02/12/24 *Time: 21:57 Interval history: Patient still fatigued but feeling somewhat better. Denies any chest pain. No shortness of breath. No nausea or vomiting. Still has scabbing on upper lip. Mild dyspnea with exertion. Tolerating p.o. intake. Diuresing well, blood pressure improving. Medical Exam Vital signs and Labs for Last 24 Hours: Vital Signs Temp Pulse Pulse Resp BP Pulse Ox O2 Del Method 02/12/24 20:00 90 02/12/24 20:00 98.0 F 87 16 141/68 H 96 Room Air 02/12/24 17:00 Room Air 02/12/24 16:00 70 02/12/24 16:00 98.1 F 81 17 112/73 98 02/12/24 15:00 Room Air 02/12/24 13:00 Room Air 02/12/24 12:00 60 02/12/24 12:00 98 F 92 H 17 108/50 L 94 L 02/12/24 11:00 Room Air 02/12/24 09:00 Room Air 02/12/24 08:00 100 H 02/12/24 08:00 95 Nasal Cannula 02/12/24 08:00 98.1 F 100 H 17 104/43 L 90 L Nasal Cannula 02/12/24 06:45 CPAP 02/12/24 06:41 02/12/24 05:00 CPAP 02/12/24 04:00 75 02/12/24 04:00 97.9 F 82 16 119/62 95 BiPAP 02/12/24 03:00 CPAP 02/12/24 01:00 CPAP 02/12/24 00:00 82 02/12/24 00:00 98.4 F 88 16 138/74 99 BiPAP 02/11/24 23:00 CPAP O2 Flow Rate FiO2 02/12/24 20:00 02/12/24 20:00 02/12/24 17:00 02/12/24 16:00 02/12/24 16:00 02/12/24 15:00 02/12/24 13:00 02/12/24 12:00 02/12/24 12:00 02/12/24 11:00 02/12/24 09:00 02/12/24 08:00 02/12/24 08:00 2 02/12/24 08:00 02/12/24 06:45 02/12/24 06:41 35 02/12/24 05:00 02/12/24 04:00 02/12/24 04:00 02/12/24 03:00 02/12/24 01:00 02/12/24 00:00 02/12/24 00:00 02/11/24 23:00 Intake and Output 02/12/24 02/12/24 02/12/24 07:59 15:59 23:59 Intake Total 120 / 1200 720 / 1200 360 / 1200 Output Total 400 / 2300 1900 / 2300 Balance -280 / -1100 720 / -1100 -1540 / -1100 Intake: Intake, Oral Amount 120 / 1200 720 / 1200 360 / 1200 Output: Output, Urine Amount 400 / 2300 1900 / 2300 Other: Number of Unmeasured Voids 0 0 Weight 117.979 kg Patient Weight 02/12/24 23:59 Weight 117.979 kg Laboratory Results - last 24 hr 02/12/24 08:35: WBC 4.2 L, RBC 3.19 L, Hgb 11.4 L, Hct 35.4 L, MCV 111.0 H, MCH 35.8 H, MCHC 32.3, RDW 13.7, Plt Count 232, MPV 8.4, Neut % (Auto) 74.2, Lymph % (Auto) 15.2, [place] % (Auto) 8.0, Eos % (Auto) 2.1, Baso % (Auto) 0.4, Neut # ( Auto) 3.1, Lymph # (Auto) 0.6 L, [place] # (Auto) 0.3, Eos # (Auto) 0.1, Baso # (Auto) 0.0, Sodium 139, Potassium 3.7, Chloride 108 H, Carbon Dioxide 29, Anion Gap 5.7, BUN 23 H, Creatinine 1.40 H, Estimated Creat Clear 76, Estimated GFR 49 L, Est GFR ( Amer) 60 D, Glucose 166 H, Calcium 8.1 L, Magnesium 1.8, Total Bilirubin 0.9, AST 105 H D, ALT 21 D, Alkaline Phosphatase 65, Total Protein 5.6 L, Albumin 3.1 L, Globulin 2.5, Albumin/Globulin Ratio 1.2 I & O for Labs for Last 24 Hours: Intake & Output 02/09/24 02/10/24 02/11/24 02/12/24 23:59 23:59 23:59 23:59 Intake Total 1550 / 1670 1200 / 1200 Output Total 2475 / 2475 2300 / 2300 Balance -925 / -805 -1100 / -1100 Weight 117.934 kg 118.524 kg 117.979 kg Constitutional: Present no acute distress, obese and cooperative Head: Present atraumatic and normocephalic ENT: Present normal exam Comment:: Scabbing on the upper lip consistent with cold sores Respiratory: Present normal respiratory effort; Absent rhonchi, wheezes or crackles Cardiac: Present Reg Rate and Rhythm GI: Present soft, distention and normal bowel sounds; Absent tenderness Extremities: Present normal inspection, full ROM and edema (1+ to knees) Skin: Present intact; Absent erythema Neuro: Present Grossly Intact, alert, awake, oriented x 3 and moves all extremities Assessment and Plan *Assessment and plan (1) ACS (acute coronary syndrome): Status: Acute Category: Medical Code(s): I24.9 - Acute ischemic heart disease, unspecified (2) Chest pain: Status: Acute Category: Medical Code(s): R07.9 - Chest pain, unspecified (3) Anemia: Status: Acute Category: Medical Code(s): D64.9 - Anemia, unspecified (4) Renal insufficiency: Status: Acute Category: Medical Code(s): N28.9 - Disorder of kidney and ureter, unspecified (5) Elevated troponin: Status: Acute Category: Medical Code(s): R79.89 - Other specified abnormal findings of blood chemistry (6) Atelectasis of both lungs: Status: Acute Category: Medical Code(s): J98.11 - Atelectasis (7) Atrial fibrillation: Status: Acute Category: Medical Code(s): I48.91 - Unspecified atrial fibrillation (8) Heart failure, ACC/AHA stage C with decreased ejection fraction: Status: Acute Category: Medical Code(s): I50.20 - Unspecified systolic (congestive) heart failure (9) Elevated left ventricular end-diastolic pressure (LVEDP): Status: Acute Category: Medical Code(s): R94.30 - Abnormal result of cardiovascular function study, unspecified Plan 73-year-old male who presented with chest pain. Found to have elevated troponin. Discussed case with ER physician, request admission after heart cath. Medicine agreed to admit. Taken to the [facility] urgently for suspected STEMI. Found to have no flow-limiting lesions but did have bidirectional flow in his coronary arteries and severely depressed EF with elevated end-diastolic pressure. Admitted after procedure. Aggressively managing medical needs. She improvement. Anticipate stability for discharge tomorrow after adjustments to medications. Problems addressed as follows: STEMI ACS Acute heart failure with reduced ejection fraction A-fib HLD -Cardiology consulted, patient taken to [facility]. No flow-limiting lesions but has bidirectional flow in coronaries due to heart failure - Echo obtained showing EF 40%. - Cardiology evaluated patient today. Discussed case. Recommend changing amlodipine/benazepril to Entresto. Change Trulicity to Farxiga. Discontinue Multaq due to CHF which is a contraindication. Continue diuresis with Bumex 1 mg IV daily. -Continue Eliquis 5 mg twice - Continue Lipitor 80 mg nightly, continue carvedilol 6.25 mg twice daily, continue Plavix 75 mg daily. - isosorbide mononitrate 30 mg daily for persistent anginal symptoms - Continue ranolazine 1000 mg twice daily BPH: Continue tamsulosin 0.4 mg nightly Depression: Continue citalopram 20 mg daily Pantoprazole 40 mg daily for GERD Sleep apnea: Wears CPAP at night at home. Continue CPAP therapy during admission Full code Eliquis Cardiac diet
[2024-02-13] VITALS: BP 120/56; PULSE 74; PULSE 80; RESP 16; TEMP 36.9; O2SAT 96
[2024-02-13 02:45] VITALS: RESP 16
[2024-02-13 04:00] VITALS: BP 106/49; PULSE 64; PULSE 80; RESP 18; TEMP 36.7; O2SAT 94; BMI 37.1
[2024-02-13 06:05] VITALS: RESP 19
--- NOTE | 2024-02-13 06:06 | PC.NURSE ---
Pt is alert and oriented x4. He has denies any chest pain or shortness of breath this shift. Has been on CPAP throughout the night. Lung sounds clear but diminished and bowel sounds active in all quadrants. No complaints at this time, call light within reach.
[2024-02-13 06:52] LABS: Chloride 107 mmol/L (98-107); Potassium 3.8 mmoL/L (3.5-5.1); Sodium 138 mmol/L (136-145)
[2024-02-13 06:54] LABS: Basophils % 0.5 % (0.1-2.0); Eosinophils # 0.1 K/mm3 (0.0-0.4); Eosinophils % 2.4 % (0.1-12.0); Hematocrit 34.6 % (42.0-52.0); Hemoglobin 11.4 g/dL (14.1-18.0); Lymphocytes # 0.9 K/mm3 (0.7-4.5); Lymphocytes % 19.4 % (10-50); Mean Corpuscular Volume 109.2 fl (80-94); Mean Platelet Volume 8.1 fl (7.4-10.4); Monocytes # 0.4 K/mm3 (0.1-1.0); Monocytes % 8.4 % (1.7-9.3); Neutrophils # 3.1 K/mm3 (1.8-7.8); Neutrophils % 69.3 % (37.0-80.0); Platelet Count 251 K/mm3 (142-424); Red Blood Count 3.17 M/mm3 (4.60-6.20); Red Cell Distribution Width 13.8 % (11.5-17.5); White Blood Count 4.5 K/mm3 (4.8-10.8)
[2024-02-13 06:55] LABS: Alanine Aminotransferase 17 U/L (12-78); Albumin/Globulin Ratio 1.2 (1.1-1.8); Alkaline Phosphatase 55 U/L (38-126); Anion Gap 5.8 mEq/L (5-15); Aspartate Amino Transferase 62 U/L (17-59); Bilirubin,Total 0.8 mg/dl (0.2-1.3); Blood Urea Nitrogen 20 mg/dl (9-20); Calcium 7.8 mg/dl (8.4-10.2); Carbon Dioxide 29 mmol/L (22.0-30.0); Creatinine Clearance Estimated 89 mL/min (50-200); Estimated Glomerular Filt Rate 59 ml/min (>60); GFR (African American) 71 ML/MIN (>60); Globulin 2.5 g/dL (1.3-3.2); Glucose 114 mg/dl (74-100); Total Protein,Serum 5.5 g/dl (6.3-8.2)
[2024-02-13 08:00] VITALS: BP 116/65; PULSE 86; RESP 17; TEMP 36.8; O2SAT 93
[2024-02-13 08:09] LABS: Magnesium 1.8 mg/dl (1.6-2.3)
[2024-02-13] MEDS: PANTOPRAZOLE 40MG TABLET 40 MG PO (08:21)
[2024-02-13] MEDS: SACUBITRIL/VALSARTAN 24-26MG TABLET 1 EACH PO (08:21)
[2024-02-13] MEDS: CARVEDILOL 6.25MG TABLET 6.25 MG PO (08:21)
[2024-02-13] MEDS: ACYCLOVIR 400MG TAB 400 MG PO ×2 (08:22→12:40)
[2024-02-13] MEDS: CITALOPRAM 20MG TABLET 20 MG PO (08:22)
[2024-02-13] MEDS: DAPAGLIFLOZIN PROPANEDIOL 10 MG TABLET PO (08:22)
[2024-02-13] MEDS: RANOLAZINE 500MG ER TABLET 1000 MG PO (08:22)
[2024-02-13] MEDS: APIXABAN 5MG TABLET 5 MG PO (08:22)
[2024-02-13] MEDS: BUMETANIDE 1MG/4ML VIAL 1 MG IV (08:22)
[2024-02-13] MEDS: ISOSORBIDE MONO 30MG TAB.ER.24H 30 MG PO (08:22)
[2024-02-13] MEDS: CLOPIDOGREL 75MG TAB 75 MG PO (08:22)
--- NOTE | 2024-02-13 10:35 | EXP.CARD.PN ---
Subjective Subjective Date: 02/13/24 Time: 10:35 Interval history: No events overnight. Patient remained stable and feels ready for discharge home today. Exam Data for Last 24 hours Vital signs and Labs for Last 24 Hours: Temp Pulse Resp BP Pulse Ox O2 Del Method O2 Flow Rate 98.2 F 86 17 116/65 93 L Room Air 2 02/13/24 08:00 02/13/24 08:00 02/13/24 08:00 02/13/24 08:00 02/13/24 08:00 02/13/24 09:00 02/12/24 08:00 FiO2 35 02/13/24 02:45 Laboratory Results - last 24 hr 02/13/24 05:47: WBC 4.5 L, RBC 3.17 L, Hgb 11.4 L, Hct 34.6 L, MCV 109.2 H, MCH 36.0 H, MCHC 33.0, RDW 13.8, Plt Count 251, MPV 8.1, Neut % (Auto) 69.3, Lymph % (Auto) 19.4, [place] % (Auto) 8.4, Eos % (Auto) 2.4, Baso % (Auto) 0.5, Neut # (Auto) 3.1, Lymph # (Auto) 0.9, [place] # (Auto) 0.4, Eos # (Auto) 0.1, Baso # (Auto) 0.0, Sodium 138, Potassium 3.8, Chloride 107, Carbon Dioxide 29, Anion Gap 5.8, BUN 20, Creatinine 1.20, Estimated Creat Clear 89, Estimated GFR 59, Est GFR ( Amer) 71, Glucose 114 H D, Calcium 7.8 L, Magnesium 1.8, Total Bilirubin 0.8, AST 62 H D, ALT 17, Alkaline Phosphatase 55, Total Protein 5.5 L, Albumin 3.0 L, Globulin 2.5, Albumin/Globulin Ratio 1.2 I & O for Last 24 hours: Intake & Output 02/10/24 02/11/24 02/12/24 02/13/24 23:59 23:59 23:59 23:59 Intake Total 1550 / 1670 1200 / 1300 340 / 340 Output Total 2475 / 2475 2300 / 2750 2650 / 2650 Balance -925 / -805 -1100 / -1450 -2310 / -2310 Weight 260 lb 261 lb 4.8 oz 260 lb 1.6 oz 259 lb 6.4 oz Constitutional Constitutional: no acute distress and cooperative *Routine HEENT Exam Eye: Present PERRL *Routine Respiratory Exam Respiratory: Present CTA bilaterally; Absent accessory muscle use, wheezes or crackles *Routine Cardiovascular Exam Cardiovascular: Present RRR, Normal S1 and Normal S2; Absent murmur, gallop or rubs *Routine Abdominal Exam Abdominal: Present soft; Absent tenderness *Routine Extremities Exam Extremities: Present pulses intact; Absent cyanosis or edema *Routine Skin Exam Skin: Present intact; Absent erythema or wounds *Routine Neurological Exam Neurological: Present alert and oriented X3 Routine Psychiatric Exam Psychiatric: Present cooperative Progress Note: A&P Assessment and plan (1) Acute on chronic left systolic heart failure: Status: Acute (2) ACS (acute coronary syndrome): Status: Acute (3) Anemia: Status: Acute (4) Renal insufficiency: Status: Acute (5) Atelectasis of both lungs: Status: Acute (6) Atrial fibrillation: Status: Acute (7) Elevated left ventricular end-diastolic pressure (LVEDP): Status: Acute Assessment and Plan Assessment and Plan for All Diagnoses:: Acute left systolic heart failure -New diagnosis this admission with EF 40% and proBNP 5260 -Patient has diuresed 1 L and feeling close to baseline -Left heart cath here shows no intervention warranted, severe anterior wall motion abnormality -Change home dose amlodipine benazepril to Entresto -Change home dose Trulicity to Farxiga -DC Multaq due to CHF which is a contraindication -Continue diuresis with Bumex 1 mg IV daily -Recommend cardiac rehab at discharge Multivessel CAD -Patient has newly reduced EF and had elevated troponin but left heart catheter showed slow flow disease with patent stents, no intervention warranted -Continue aspirin, Plavix, statin, beta-frank, Ranexa PAF - known dx - cont Eliquis and COreg - DC Multaq - contraindicated with acute CHF - will need a 2 weeks wash-out anyway, can f/u with his [facility] post discharge to select possible alternative Type 2 diabetes -A1c 7.1 -Change Trulicity to Farxiga Obesity, BMI 37 - needs aggressive weight loss via diet/exercise - conssider OP GLP-1 02/12: CV stable with plans as outlined above.
--- NOTE | 2024-02-13 15:01 | EXP.DC.SUM ---
General Admission date:: 02/10/24 Discharge date: 02/13/24 HPI HPI HPI: This patient approximately a week ago had apparently had an myocardial infarction.. Has a long history of cardiovascular disease CABG also has been cath at [place] in the past. Approximately a week ago began to have more chest pain he normally takes nitroglycerin up to about 5 a day for his angina some days he does not take any. He described he began to have mid chest pain which is normal for him but in his right arm on the anterior portion of his elbow he began to have pain. Main reason for coming in was increased problems with respiration feeling short of breath. He was seen by the emergency room physician and worked up. Cardiology was called and he has plans and was taken to the [facility]. Hospital Course Hospital Course Hospital Course: 73-year-old male who presented with chest pain. Found to have elevated troponin. Discussed case with ER physician, request admission after heart cath. Medicine agreed to admit. Taken to the [facility] urgently for suspected STEMI. Found to have no flow-limiting lesions but did have bidirectional flow in his coronary arteries and severely depressed EF with elevated end-diastolic pressure. Admitted after procedure. Aggressively managing medical needs. Slow improvement over duration of hospitalization. Given his improvement, stable to discharge home with close outpatient follow-up. Problems addressed as follows: STEMI ACS Acute heart failure with reduced ejection fraction A-fib HLD - Cardiology consulted, patient taken to [facility]. No flow-limiting lesions but has bidirectional flow in coronaries due to heart failure. Echo obtained showing reduced ejection fraction of 40%. Cardiology assisted with care. Recommended adjustments to medications including stopping his amlodipine/benazepril, initiate Entresto. Change Trulicity to Farxiga. Discontinue his Multaq due to CHF which is a contraindication. Continue aggressive diuresis with Bumex daily. Continue Eliquis 5 mg twice daily. - Continue Lipitor 80 mg nightly, continue carvedilol 6.25 mg twice daily, continue Plavix 75 mg daily. - isosorbide mononitrate 30 mg daily for persistent anginal symptoms - Continue ranolazine 1000 mg twice daily -Asymptomatic for 24 hours prior to discharge home. Patient reports overall feeling better. Cold sore: Outbreak within a day or 2 prior to admission. Initiated on acyclovir. Will complete 7-day course. BPH: Continue tamsulosin 0.4 mg nightly Depression: Continue citalopram 20 mg daily Pantoprazole 40 mg daily for GERD Sleep apnea: Wears CPAP at night at home. Continue CPAP therapy during admission Total time spent on discharge 32 minutes in counseling, documentation, chart review, and direct care with patient. Exam Data for Last 24 hours Vital signs and Labs for Last 24 Hours: Temp Pulse Resp BP Pulse Ox O2 Del Method O2 Flow Rate 98 F 92 H 17 108/50 L 94 L Room Air 2 02/12/24 12:00 02/12/24 12:00 02/12/24 12:00 02/12/24 12:00 02/12/24 12:00 02/12/24 13:00 02/12/24 08:00 FiO2 35 02/12/24 06:41 Laboratory Results - last 24 hr 02/12/24 08:35: WBC 4.2 L, RBC 3.19 L, Hgb 11.4 L, Hct 35.4 L, MCV 111.0 H, MCH 35.8 H, MCHC 32.3, RDW 13.7, Plt Count 232, MPV 8.4, Neut % (Auto) 74.2, Lymph % (Auto) 15.2, [place] % (Auto) 8.0, Eos % (Auto) 2.1, Baso % (Auto) 0.4, Neut # (Auto) 3.1, Lymph # (Auto) 0.6 L, [place] # (Auto) 0.3, Eos # (Auto) 0.1, Baso # (Auto) 0.0, Sodium 139, Potassium 3.7, Chloride 108 H, Carbon Dioxide 29, Anion Gap 5.7, BUN 23 H, Creatinine 1.40 H, Estimated Creat Clear 76, Estimated GFR 49 L, Est GFR ( Amer) 60 D, Glucose 166 H, Calcium 8.1 L, Magnesium 1.8, Total Bilirubin 0.9, AST 105 H D, ALT 21 D, Alkaline Phosphatase 65, Total Protein 5.6 L, Albumin 3.1 L, Globulin 2.5, Albumin/Globulin Ratio 1.2 I & O for Last 24 hours: Intake & Output 02/09/24 02/10/24 02/11/24 02/12/24 23:59 23:59 23:59 23:59 Intake Total 1550 / 1670 480 / 480 Output Total 2475 / 2475 400 / 400 Balance -925 / -805 80 / 80 Weight 117.934 kg 118.524 kg 117.979 kg Constitutional Constitutional: no acute distress, obese, chronically ill appearing and cooperative *Routine HEENT Exam Head: Present normocephalic Eye: Present EOMI and PERRL ENT: Present mucous membranes moist Comments: healing scabbed lesions on upper lip *Routine Neck Exam Neck: Present supple; Absent lymphadenopathy *Routine Respiratory Exam Respiratory: Present CTA bilaterally; Absent rhonchi, wheezes or crackles *Routine Cardiovascular Exam Cardiovascular: Present RRR *Routine Abdominal Exam Abdominal: Present soft and normoactive bowel sounds; Absent tenderness *Routine Rectal Exam Patient deferred: visual exam *Routine Exam Patient deferred: penile exam *Routine Extremities Exam Extremities: Absent cyanosis, clubbing or edema *Routine Skin Exam Skin: Present warm; Absent rash *Routine Neurological Exam Neurological: Present alert, oriented X3 and moving all extremities; Absent altered mental status Results Data Completed and Pending Labs on day of discharge: Labs from last 24 hours 02/12/24 08:35 WBC 4.2 L RBC 3.19 L Hgb 11.4 L Hct 35.4 L MCV 111.0 H MCH 35.8 H MCHC 32.3 RDW 13.7 Plt Count 232 MPV 8.4 Neut % (Auto) 74.2 Lymph % (Auto) 15.2 [place] % (Auto) 8.0 Eos % (Auto) 2.1 Baso % (Auto) 0.4 Neut # (Auto) 3.1 Lymph # (Auto) 0.6 L [place] # (Auto) 0.3 Eos # (Auto) 0.1 Baso # (Auto) 0.0 Sodium 139 Potassium 3.7 Chloride 108 H Carbon Dioxide 29 Anion Gap 5.7 BUN 23 H Creatinine 1.40 H Estimated Creat Clear 76 Estimated GFR 49 L Est GFR ( Amer) 60 D Glucose 166 H Calcium 8.1 L Magnesium 1.8 Total Bilirubin 0.9 AST 105 H D ALT 21 D Alkaline Phosphatase 65 Total Protein 5.6 L Albumin 3.1 L Globulin 2.5 Albumin/Globulin Ratio 1.2 DS: Diagnosis Discharge Diagnosis (1) ACS (acute coronary syndrome): Status: Acute Code(s): I24.9 - Acute ischemic heart disease, unspecified (2) Chest pain: Status: Acute Code(s): R07.9 - Chest pain, unspecified (3) Anemia: Status: Acute Code(s): D64.9 - Anemia, unspecified (4) Renal insufficiency: Status: Acute Code(s): N28.9 - Disorder of kidney and ureter, unspecified (5) Elevated troponin: Status: Acute Code(s): R79.89 - Other specified abnormal findings of blood chemistry (6) Atelectasis of both lungs: Status: Acute Code(s): J98.11 - Atelectasis (7) Atrial fibrillation: Status: Acute Code(s): I48.91 - Unspecified atrial fibrillation (8) Heart failure, ACC/AHA stage C with decreased ejection fraction: Status: Acute Code(s): I50.20 - Unspecified systolic (congestive) heart failure (9) Elevated left ventricular end-diastolic pressure (LVEDP): Status: Acute Code(s): R94.30 - Abnormal result of cardiovascular function study, unspecified Meds Home Medications and Allergies Home Medications ?Medication ?Instructions ?Recorded ?Confirmed ?Type apixaban 5 mg tablet (Eliquis) 5 mg PO BID 12/07/22 02/10/24 History atorvastatin 80 mg tablet 80 mg PO DAILY 12/07/22 02/10/24 History citalopram 20 mg tablet 20 mg PO DAILY 12/07/22 02/10/24 History dulaglutide 1.5 mg/0.5 mL 1.5 mg SQ WEEKLY 12/07/22 02/10/24 History subcutaneous pen injector (Trulicity) pantoprazole 40 mg tablet,delayed 40 mg PO DAILY #30 tabs 11/09/23 02/10/24 Rx release alfuzosin 10 mg tablet,extended 10 mg PO DAILY 02/10/24 02/10/24 History release 24 hr budesonide-formoterol HFA 160 2 puff inhalation BID 02/10/24 02/10/24 History mcg-4.5 mcg/actuation aerosol inhaler fluticasone propionate 50 2 spray intranasal DAILY PRN 02/10/24 02/10/24 History mcg/actuation nasal allergies spray,suspension (Flonase Allergy Relief) ranolazine 1,000 mg 1,000 mg PO BID 02/10/24 02/10/24 History tablet,extended release,12 hr acyclovir 400 mg tablet 400 mg PO TID 5 days #15 tabs 02/13/24 Rx bumetanide 1 mg tablet 1 mg PO DAILY #30 tabs 02/13/24 Rx carvedilol 12.5 mg tablet 6.25 mg (1/2 x 12.5 mg) PO BID bp 02/13/24 02/10/24 Rx 30 days #0 tabs dapagliflozin propanediol 10 mg 10 mg PO DAILY #30 tabs 02/13/24 Rx tablet (Farxiga) isosorbide mononitrate 30 mg 30 mg PO DAILY 30 days #30 tabs 02/13/24 Rx tablet,extended release 24 hr sacubitril 24 mg-valsartan 26 mg 1 tab PO BID 30 days #60 tabs 02/13/24 Rx tablet (Entresto) New Prescriptions to Start Prescriptions: nancyyclovir Conor Rollins bumetanide Conor Rollins daphilario propanediol [Farxiga] Conor Rollins isosorbide mononitrate Conor Rollins sacubitril-valsartan [Entresto] Conor Rollins Allergies Allergy/AdvReac Type Severity Reaction Status Date / Time No Known Allergies Allergy Verified 06/15/23 09:31 Discharge Plan Disposition Patient Disposition: Home, Self-Care Condition: Fair Discharge Order Discharge Orders: Discharge Order (Routine); Ordered 02/13/24 Ordered By: Conor Rollins Follow up Plan Follow up with: Hawk Baker MD [Staff Physician] - 02/26/24 1:45 pm Huan Rizzo MD [Primary Care Provider] - 02/19/24 3:00 pm Prescriptions/Medication Reconciliation: New acyclovir 400 mg Tablet 400 mg PO TID 5 Days Qty: 15 1RF Entresto 24-26 mg Tablet 1 tab PO BID 30 Days Qty: 60 0RF isosorbide mononitrate 30 mg Tablet Extended Release 24 Hr 30 mg PO DAILY 30 Days Qty: 30 0RF dapagliflozin propanediol [Farxiga] 10 mg Tablet 10 mg PO DAILY Qty: 30 0RF bumetanide 1 mg tablet 1 mg PO DAILY Qty: 30 0RF Continued Eliquis 5 mg tablet 5 mg PO BID atorvastatin 80 mg tablet 80 mg PO DAILY citalopram 20 mg tablet 20 mg PO DAILY Trulicity 1.5 mg/0.5 mL pen injector 1.5 mg SQ WEEKLY Rx Instructions: ON WEDNESDAYS pantoprazole 40 mg tablet,delayed release (DR/EC) 40 mg PO DAILY Qty: 30 5RF fluticasone propionate [Flonase Allergy Relief] 50 mcg/actuation spray,suspension 2 spray intranasal DAILY PRN (Reason: allergies) Rx Instructions: administer into each nostril alfuzosin 10 mg Tablet Extended Release 24 Hr 10 mg PO DAILY budesonide-formoterol 160-4.5 mcg/actuation Hfa Aerosol Inhaler 2 puff INHALATION BID ranolazine 1,000 mg Tablet Extended Release 12 Hr 1,000 mg PO BID Changed carvedilol 12.5 mg tablet 6.25 mg PO BID 30 Days Qty: 0 0RF Discontinued Multaq 400 mg tablet 400 mg PO BID amlodipine-benazepril 2.5-10 mg capsule 1 cap PO DAILY Problem Reconciliation Problems Reviewed?: Yes Patient Discharge Instructions ACTIVITY: Continue current activity DIET: continue same diet Patient Instructions: Heart Attack, Acute Coronary Syndrome, DI for Heart Failure, DI for Cardiac Catheterization, DI for Surgical Site Infection Print Language: Polish Providers Primary Care Provider: Huan Rizzo Admit Provider: Conor Rollins Attending Provider: Conor Rollins
--- NOTE | 2024-02-14 12:45 | SW/DCPLANNER ---
Follow up phone call: patient stated that he is doing well at home. 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 CM will investigate. Patient is aware of follow up appointments.
== END 2024-02-13 13:57 | disposition home or self-care (01) | DRG 280 ==
LOC: ER 19:15 → SDC 20:06 → 2ND 21:16
PROVIDERS: Internal Medicine Cardiovascular Disease; Nurse Practitioner Family; Admitting Provider Internal Medicine Adolescent Medicine; Emergency Provider Emergency Medicine; PCP Internal Medicine Adolescent Medicine; Visit Provider Internal Medicine Adolescent Medicine
PROC: B2111ZZ Fluoroscopy of Multiple Coronary Arteries using Low Osmolar Contrast (ICD-10-PCS; principal; 2024-02-10 19:25)
DX: I21.3 ST elevation (STEMI) myocardial infarction of unspecified site (principal); I50.21 Acute systolic (congestive) heart failure; J98.11 Atelectasis; I24.9 Acute ischemic heart disease, unspecified; D64.9 Anemia, unspecified; N28.9 Disorder of kidney and ureter, unspecified; I48.91 Unspecified atrial fibrillation; R94.30 Abnormal result of cardiovascular function study, unspecified; I25.10 Atherosclerotic heart disease of native coronary artery without angina pectoris; Z95.5 Presence of coronary angioplasty implant and graft; G89.29 Other chronic pain; N40.0 Benign prostatic hyperplasia without lower urinary tract symptoms; F32.A Depression, unspecified; Z95.1 Presence of aortocoronary bypass graft; K21.9 Gastro-esophageal reflux disease without esophagitis; E66.9 Obesity, unspecified; Z68.37 Body mass index [BMI] 37.0-37.9, adult; I48.0 Paroxysmal atrial fibrillation; G47.30 Sleep apnea, unspecified; I11.0 Hypertensive heart disease with heart failure
CPT/HCPCS: 36415; 71045; 80048; 80053; 82803; 83690; 83735; 83880; 84484; 85025; 85378; 93005; 93306; 93458; 94640; 94660; 94760; 99152; 99153; 99291; C1725; C1769; J0131; J1200; J1644; J1885; J1940; J2250; J3010; Q9967

== ENCOUNTER 2024-02-14 15:00 | Outpatient (RCR) | payer MEDICARE, OTHER, SELFPAY ==
--- NOTE | 2024-01-09 16:47 | HMH.PTOPEV ---
PT Outpatient Evaluation Rehab PT Outpatient Evaluation Start: 01/09/24 12:51 Freq: Status: Active Protocol: Document 01/09/24 12:52 MIKAEL (Rec: 01/09/24 16:47 MIKAEL [id number]) E-signed By Nunu Barroso, PT Outpatient Therapy Subjective History Subjective History Pt is a 73 y/o male who reports insidious onset of R>L neck pain and headaches 6mo-1 year ago. Pt denies known trauma or injury. Pt denies having imaging of his neck/ head. Pt reports tightness/ stiffness across bilateral shoulder/upper back and headaches as well. Pt states he experiences daily headaches described as either bilateral occipital pain or tension type headache like a hat. Pt denies light/noise sensitivity, dizziness, or n/v with headaches. Pt does report intermittent dizziness throughout the day he describes as feeling light- headed. Pt denies vertigo type symptoms. Pt denies impaired balance or falls from this. Pt denies numbness or tingling. Pt reports overall symptoms are aggravated by sleeping on his R side and activity throughout the day. Medical History: Hypertension, Asthma Observation: Forward head posture with increased thoracic kyphosis Neagtive cervical flexion rotation test New diagnosis of cancer in past 12 No months? Chief Complaint Pain,Stiff Symptom Type Ache,Dull Symptoms Relieved By Rest/Positioning Symptoms Aggravated By Physical Activity Prior Functional Limitations None Current Functional Limitations Recreation Activity Symptom Description Constant but Variable Level of pain today (0-10) 3 Pain scale - at its best (0-10) 1 Pain scale - at its worst (0-10) 6 Cervical Eval Palpation Cervical Muscles R Cervical Paraspinal,L Cervical Paraspinal,R Suboccipital,L Suboccipital,R Upper Trapezius,L Upper Trapezius Cervical/Thoracic Palpation Findings Tenderness Flexibility Deficits Upper Trapezius Muscle Length (R) Moderate Tightness,(L) Moderate Tightness Levaetor Scapulae Muscle Length (R) Moderate Tightness,(L) Moderate Tightness Pectoralis Major Muscle Length (R) Mild Tightness,(L) Mild Tightness Pectoralis Minor Muscle Length (R) Mild Tightness,(L) Mild Tightness Passive Joint Mobility Cervical PIVM Dec: R C4/5 L C4/5 R C5/6 L C5/6 R C6/7 L C6/7 AROM Cervical Spine Extension Active Range of 30 Motion (degrees) Cervical Spine Flexion Active Range of 45 Motion (degrees) Cervical Spine Right Lateral Flexion 25 Active Range of Motion (degrees) Cervical Spine Left Lateral Flexion 25 Active Range of Motion (degrees) Cervical Spine Right Rotation Active 45 Range of Motion (degrees) Cervical Spine Left Rotation Active 55 Range of Motion (degrees) Altered Sensation Bilateral Comment equal and intact to light touch sensation B Special Test C-Spine Foraminal Compression (Spurling) Negative Left,Negative Right Test C-spine Verterbral Accessory Movements Central P/A [place],Right P/A that Elicit Symptoms [place] Shoulder/Elbow Eval Shoulder Objective Measurements Shoulder MMT Bilateral Lower Trapezius Strength Grade 4- Good- Middle Trapezius Strength Grade 4- Good- Upper Trapezius/Levator Scapulae 4 Good Shoulder Abduction Strength Grade 5 Normal Shoulder Extension Strength Grade 5 Normal Shoulder Flexion Strength Grade 5 Normal Elbow Objective Measurements Neck Disability Index Neck Disability Index Section 1: Pain Intensity The pain is very mild at moment Section 2: Personal Care (washing, I can look after myself dressing, etc.) normally without causing extra pain Section 3: Lifting I can lift heavy weights without extra pain Section 4: Reading I can read as much as I want to with slight pain in my neck Section 5: Headaches I have moderate headaches, which come frequently Section 6: Concentration I can concentrate fully when I want to with no difficulty Section 7: Work I can only do my usual work, but no more Section 8: Driving I can drive my car as long as I want with slight pain in my neck Section 9: Sleeping My sleep is slightly disturbed (less than 1 hr sleepless) Section 10: Recreation I am able to engage in all my recreation activities with some pain in NDI Score 9 Outpatient Therapy Assessment Impairments Problems/Impairmments Palpation Tenderness,Impaired Range of Motion,Impaired Strength,Impaired Transfers, Impaired Household Care, Subjective C/O Pain,Impaired Self Care/Self Management Prognosis Rehab Potential Good Clinical Impression Consistent with Diagnosis Yes Short Term Goals Number of Weeks 3 Increase Range of Motion Yes: Improve cervical AROM by 5 degrees ea plane Improve Self Care/Self Management Yes Patient to be Ind w/ HEP Yes Snf Goals Number of Weeks 6 Decreased Palpation Tenderness Yes: 1/4 TTP of cervical region Increase Range of Motion Yes: Improve cervical AROM to WFL Increase Strength Yes: Improve scap strength to 4-4+/5 grossly to assist with posture Improve Neck Disability Index Score Yes Decrease Subjective C/O Pain Yes: Improve pain at worst to 2-4/10 to improve overall QOL Outpatient Therapy Plan of Care Treatment Plan May Include Therapeutic Exercise Including Home Yes Exercise Program Manual Therapy Techniques Yes Neuromuscular Re-education Yes Therapeutic Activities to Return to Yes Previous Functional/Work Level ADL/Self Care Education Yes Mechanical Traction Yes Dry Needling Yes Thermal Modalities Yes Electrical Stimulation Yes Ultrasound/Phonophoresis Yes Iontophoresis Yes Massage Yes Group Therapy for Medicare Yes Eval/Re-Eval Yes Frequency Times per week 2 Duration Number of Weeks 4-6 Addendums This patient is a candidate for social No or vocational rehab? Patient/Guardian verbally acknowledges Yes understanding of treatment program and consents to further treatment? Patient/Guardian verbally acknowledges Yes understanding of diagnosis, prognosis and goals for treatment? Eval Complexity PT Charges 89410 - Moderate Complexity PHYSICIAN CERTIFICATION: I certify the specified therapy services for Sumanth Joyce are required, authorized, and reviewed every 30 days.
== END 2024-02-14 15:05 | disposition home or self-care (01) ==
LOC: PT 15:00
PROVIDERS: Visit Provider Internal Medicine Adolescent Medicine
DX: M54.2 Cervicalgia (principal)
CPT/HCPCS: 97110; 97163

== ENCOUNTER 2024-09-30 14:41 | Outpatient (CLI) | payer MEDICARE, OTHER, SELFPAY ==
--- NOTE | 2024-09-30 14:44 | XR_ITS ---
FINAL REPORT CLINICAL HISTORY: PAIN..no trauma FINDINGS: RIGHT KNEE 3 views of the right knee were obtained. There is no acute fracture or dislocation. Degenerative disease is noted. Visualized joint spaces are normally aligned. Soft tissues are unremarkable. IMPRESSION: No acute bony abnormality. Reviewed, Interpreted and Dictated by Lakisha Jefferson MD Transcribed by Bekah Herrera Authenticated and [facility]
== END 2024-09-30 23:59 | disposition home or self-care (01) ==
LOC: RAD 14:42
PROVIDERS: PCP Internal Medicine Adolescent Medicine; Visit Provider Internal Medicine Adolescent Medicine
DX: M25.561 Pain in right knee (principal)
CPT/HCPCS: 73562

== ENCOUNTER 2024-10-11 12:36 | Outpatient (CLI) | payer MEDICARE, OTHER, SELFPAY ==
--- NOTE | 2024-10-11 | CA_ITS ---
FINAL REPORT CLINICAL HISTORY: NEAR SYNCOPE FINDINGS: RIGHT CAROTID: CCA PSV - cm/sec ICA PSV - cm/sec ICA/CCA PSV ratio - . Comments: Mild plaque disease is noted. LEFTCAROTID: CCA PSV - . cm/sec ICA PSV - . cm/sec ICA/CCA PSV ratio - . Comments: Mild plaque disease is noted. Antegrade flow is seen within the vertebral arteries. IMPRESSION: Carotid stenosis classified less than 50% Reviewed, Interpreted and Dictated by Zander Logan MD Transcribed by Krery Parisi Authenticated and [facility]
--- NOTE | 2024-10-11 13:02 | MR_ITS ---
FINAL REPORT TECHNIQUE: Multiplanar MR without contrast CLINICAL HISTORY: SYNCOPE FOR MORE THAN 6 MONTHS COMPARISON: 06/11/2022 FINDINGS: Diffusion sequences show no signal abnormality to indicate acute infarct. There are numerous white matter signal changes throughout both hemispheres compatible with moderate chronic microvascular changes, similar to prior exam. There is age-appropriate atrophy. No mass, hemorrhage or edema is seen. Ventricles are normal. Major vascular flow voids are intact. IMPRESSION: No acute infarct or obvious mass. Stable chronic microvascular changes. Reviewed, Interpreted and Dictated by Zander Logan MD Transcribed by Maggie Dumont Authenticated and [facility]
--- OUTSIDE RECORDS SUMMARY | 2024-10-17 19:36 | XMS_ITS | Continuity of Care Document ---
Author Organization Formerly [facility]. 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) Onset:10-Mar-2023 Comments:Onset Date: 20230310 Essential (primary) hypertension(I10) Onset:10-Mar-2023 Comments:Onset Date: 20230310 Hyperlipidemia, unspecified( E78.5) Onset:10-Mar-2023 Comments:Onset Date: 20230310 Obesity, unspecified(E66.9) Onset:10-Mar-2023 Comments:Onset Date: 20230310 Paroxysmal atrial fibrillati on Onset:10-Mar-2023 Comments:Onset Date: 20230310 Chest pain Onset:09-Mar-2023 Paul Linn R2 DO Comments:Onset Date: 20230310 Mental Status Cognitive function finding 09-Mar-2023 Allergies and Adverse Reactions No Known Drug Allergies(Rio rgy) Onset: 09-Mar-2023 Medications aspirin 81 MG Delayed Releas e Oral Tablet;81 MILLIGRAM PO DAILY Start:10-Mar-2023 Comments:81 MG PO DAILY citalopram 20 MG Oral Tablet ;20 MILLIGRAM PO DAILY Start:10-Mar-2023 Status:Discontinued Comments:20 MG PO DAILY levocetirizine dihydrochlori de 5 MG Oral Tablet [Xyzal];5 MILLIGRAM PO DAILY Start:10-Mar-2023 Comments:5 MG PO DAILY 120 ACTUAT Fluticasone propionate 0.05 MG/ACTUAT Nasal Inhaler [Flonase];1 SPRAY NASAL DAILY Start:10-Mar-2023 Comments:1 SPRAY NASAL DAILY As Needed for ALLERGIES z-Med List Information;1 EAC H MISC .CANCEL AT DISCHARGE Start:10-Mar-2023 Comments:1 EACH MISC .CANCEL AT DISCHARGE 50 ML glucose 500 MG/ML Prefilled Syringe;25 MILLILITER PRN Quantity:1 Donna Collins MD Start:09-Mar-2023 Status:Discontinued Comments:[id number] Administration Instructions:GIVE DEXTROSE 50% IF PT CANNOT TAKE PO HAS IVACCESS 50 ML glucose 500 MG/ML Prefilled Syringe;50 MILLILITER PRN Quantity:1 Donna Collins MD Start:09-Mar-2023 Status:Discontinued Comments:[id number] Administration Instructions:GIVE DEXTROSE 50% IF PT CANNOT TAKE PO HAS IVACCESS glucagon (rDNA) 1 MG Injecti on [GlucaGen];1 MILLIGRAM PRN Quantity:1 Donna Collins MD Start:09-Mar-2023 Status:Discontinued Comments:[id number] Administration Instructions:For blood glucose <50 -- OR --symptomatic with blood glucose <60 FOR PT WITH NO IV ACCESS acetaminophen 325 MG Oral Tablet;650 MILLIGRAM Q4H PRN Quantity:2 Donna Collins MD Start:09-Mar-2023 Status:Discontinued Comments:[id number] Administration Instructions:Should not exceed 4000mg of acetaminophen daily ondansetron 2 MG/ML Injectab le Solution [Zofran];4 MILLIGRAM Q6H PRN Quantity:1 Donna Collins MD Start:09-Mar-2023 Status:Discontinued Comments:[id number] glucose 4000 MG Chewable Tablet;4 TABLET PRN Quantity:4 Donna Collins MD Start:09-Mar-2023 Status:Discontinued Comments:[id number] Administration Instructions:FOR BLOOD SUGAR <70 AND ABLE TO EAT/SWALLOW SAFELYEACH TAB = 4 GM DEXTROSE 1 ML morphine sulfate 2 MG/M L Prefilled Syringe;1 MILLIGRAM Q5M PRN Quantity:1 Donna Collins MD Start:09-Mar-2023 Status:Discontinued Comments:[id number] nitroglycerin 0.4 MG Subling ual Tablet [Nitrostat];0.4 MILLIGRAM Q5M PRN Quantity:1 Donna Collins MD Start:09-Mar-2023 Status:Discontinued Comments:[id number] MAGNESIUM REPLACEMENT 1 EACH;[id number] Administration Instructions:FOLLOW PROTOCOL Quantity:0 Donna Collins MD Start:09-Mar-2023 Status:Discontinued Comments:[id number] Administration Instructions:FOLLOW PROTOCOL POTASSIUM REPLACEMENT 1 EACH;[id number] Administration Instructions:FOLLOW PROTOCOL Quantity:0 Donna Collins MD Start:09-Mar-2023 Status:Discontinued Comments:[id number] Administration Instructions:FOLLOW PROTOCOL PHOSPHOROUS REPLACEMENT 1 EACH;[id number] Administration Instructions:FOLLOW PROTOCOL Quantity:0 Donna Collins MD Start:09-Mar-2023 Status:Discontinued Comments:[id number] Administration Instructions:FOLLOW PROTOCOL amLODIPine 5 MG / benazepril hydrochloride 40 MG Oral Capsule;1 CAPSULE PO DAILY Start:09-Mar-2023 Comments:1 CAP PO DAILY tadalafil 20 MG Oral Tablet [Cialis];20 MILLIGRAM PO DAILY Start:09-Mar-2023 Comments:20 MG PO DAILY As Needed for unknown dronedarone 400 MG Oral Tablet;400 MILLIGRAM PO BID Start:09-Mar-2023 Comments:400 MG PO BID apixaban 5 MG Oral Tablet;5 MILLIGRAM PO BID Start:09-Mar-2023 Comments:5 MG PO BID carvedilol 12.5 MG Oral Tablet;12.5 MILLIGRAM PO BID MEALS Start:09-Mar-2023 Comments:12.5 MG PO BID MEALS omeprazole 40 MG Delayed Release Oral Capsule;40 MILLIGRAM PO DAILY Start:09-Mar-2023 Comments:40 MG PO DAILY atorvastatin 80 MG Oral Tablet;80 MILLIGRAM PO DAILY Start:09-Mar-2023 Comments:80 MG PO DAILY TRULICITY;1.5 MILLIGRAM SUBCUTANEOUS Oh Start:09-Mar-2023 Comments:1.5 MG SUBQ Oh Social History Smoking Status Ex-smoker Recorded: 09-Mar-2023
== END 2024-10-11 23:59 | disposition home or self-care (01) ==
PROVIDERS: PCP Internal Medicine Adolescent Medicine; Visit Provider Internal Medicine Adolescent Medicine
DX: I65.23 Occlusion and stenosis of bilateral carotid arteries (principal); R55 Syncope and collapse; R51.9 Headache, unspecified
CPT/HCPCS: 70551; 93880

== ENCOUNTER 2024-11-05 15:00 | Outpatient (RCR) | payer MEDICARE, OTHER, SELFPAY ==
--- NOTE | 2024-10-10 18:26 | HMH.PTOPEV ---
PT Outpatient Evaluation Rehab PT Outpatient Evaluation Start: 10/10/24 15:05 Freq: Status: Active Protocol: Document 10/10/24 15:06 MIKAEL (Rec: 10/10/24 18:25 MIKAEL [id number]) E-signed By Nunu Barroso, PT Outpatient Therapy Subjective History Subjective History Pt is a 74 y/o male who presents to PT for neck and R knee pain. Pt reports main complaint of R lateral knee pain with onset after slipping on a rock and twisting his knee in April of last year. Pt denies bruising or a pop with minimal swelling noted initially. Pt reports he had a R knee xray on 09/30/24 with findings of No acute bony abnormality. Pt reports intermittent pain since the injury aggravated by prolonged standing, walking up hill, going down steps, and walking on uneven ground. Pt reports sense of R knee instability as well. Pt denies falls, use of a knee brace or required use of an AD for ambulation. Pt reports R>L chronic neck pain for ~1 year. Pt reports pain is aggravated by turning his head both ways, looking down and looking up. Pt reports he notices crepitus of his neck when he looks down that is often painful. Pt also reports headaches described as wearing a baseball hat that he experiences 1-2x/week. Pt denies having imaging of his neck. Medical History: Hypertension, Hyperlipidemia, Type II Diabetes, Asthma, Dizziness Posture: Increased thoracic kyphosis with rounded shoulders and forward head posture Knee pain: 8/10 at worst, 0/10 best, 1/10 current Neck pain: 9/10 at worst, 1/10 at best, 7/10 current New diagnosis of cancer in past 12 No months? Chief Complaint Pain Symptom Type Sharp,Dull Symptoms Relieved By Rest/Positioning Symptoms Aggravated By Bending/Stooping,Physical Activity,Walking Current Functional Limitations Squatting,Walking,Stairs, Balance Symptom Description Intermittent Cervical Eval Palpation Cervical Muscles R Cervical Paraspinal,L Cervical Paraspinal,R Suboccipital,L Suboccipital,R Upper Trapezius,L Upper Trapezius Cervical/Thoracic Palpation Findings Tenderness Flexibility Deficits Upper Trapezius Muscle Length (R) Moderate Tightness,(L) Moderate Tightness Levaetor Scapulae Muscle Length (R) Moderate Tightness,(L) Moderate Tightness Pectoralis Major Muscle Length (R) Mild Tightness,(L) Mild Tightness Pectoralis Minor Muscle Length (R) Mild Tightness,(L) Mild Tightness Passive Joint Mobility Cervical PIVM Dec: R C2/3 L C2/3 R C3/4 L C3/4 R C4/5 L C4/5 AROM Cervical Spine Extension Active Range of 25 Motion (degrees) Cervical Spine Flexion Active Range of 45 Motion (degrees) Cervical Spine Right Lateral Flexion 35 Active Range of Motion (degrees) Cervical Spine Left Lateral Flexion 35 Active Range of Motion (degrees) Cervical Spine Right Rotation Active 50 Range of Motion (degrees) Cervical Spine Left Rotation Active 40 Range of Motion (degrees) Altered Sensation Bilateral Comment equal and intact to light touch sensation Shoulder/Elbow Eval Shoulder Objective Measurements Shoulder MMT Bilateral Lower Trapezius Strength Grade 4- Good- Middle Trapezius Strength Grade 4- Good- Rhomboids Strength Grade 4- Good- Elbow Objective Measurements Hip/Knee Eval Gait Observation General Gait Pattern Observation Antalgic Gait,Decrease Stride Lngth (R) Assistive Device Assistive Devices None / NA Palpation Tenderness right Knee Palpation Finding Tenderness Knee Palpation Overall Comment 2/4 TTP of lateral jt line, femoral condyle MMT Hip Flexion Strength Grade 4- Good- Hip Abduction Strength Grade 4- Good- Hip Adduction Strength Grade 4 Good Hip Extension Strength Grade 4- Good- Knee Extension Strength Grade 4 Good Knee Flexion Strength Grade 4 Good ROM Knee Extension Active Range of Motion ( 0 degrees) Knee Flexion Active Range of Motion ( 120 degrees) Special Tests Knee Anterior Jair Test Negative Right Knee Posterior Sag (Gove Drawer) Test Negative Right Knee Valgus Stress Test Negative Right Knee Varus Stress Test Negative Right Knee Consuelo Test Positive Right Neck Disability Index Neck Disability Index Section 1: Pain Intensity The pain is moderate at the moment Section 2: Personal Care (washing, I can look after myself dressing, etc.) normally without causing extra pain Section 3: Lifting Pain prevents me from lifting heavy weights, but I can manage light to Section 4: Reading I can read as much as I want to with slight pain in my neck Section 5: Headaches I have moderate headaches, which come frequently Section 6: Concentration I can concentrate fully when I want to with no difficulty Section 7: Work I can do as much work as I want to Section 8: Driving I can drive my car as long as I want with slight pain in my neck Section 9: Sleeping My sleep is slightly disturbed (less than 1 hr sleepless) Section 10: Recreation I am able to engage in all my recreation activities with some pain in NDI Score 12 Lower Extremity Functional Index Activities Today, do you or would you have any difficulty at all with: a.Any of your usual work, housework or A little bit of difficulty school activities b. Your usual hobbies, recreational or A little bit of difficulty sporting activities c. Getting into or out of the bath A little bit of difficulty d. Walking between rooms A little bit of difficulty e. Putting on your shoes or socks A little bit of difficulty f. Squatting Moderate difficulty g. Lifting an object, like a bag of Moderate difficulty groceries from the floor h. Performing light activities around A little bit of difficulty your home i. Performing heavy activities around Quite a bit of difficulty your home j. Getting into or out of a car A little bit of difficulty k. Walking 2 blocks A little bit of difficulty l. Walking a mile Moderate difficulty m. Going up or down 10 stairs (about 1 Moderate difficulty flight of stairs) n. Standing for 1 hour A little bit of difficulty o. Sitting for 1 hour No difficulty p. Running on even ground Extreme difficulty or unable to perform activity q. Running on uneven ground Extreme difficulty or unable to perform activity r. Making sharp turns while running fast Extreme difficulty or unable to perform activity s. Hopping Extreme difficulty or unable to perform activity t. Rolling over in bed A little bit of difficulty LEFI Score Lower Extremity Functional Index Score 43 Outpatient Therapy Assessment Impairments Problems/Impairmments Palpation Tenderness,Impaired Range of Motion,Impaired Strength,Impaired Gait Pattern ,Impaired Walking,Impaired Standing,Impaired Lifting, Impaired Stair Climbing, Impaired Incline Stepping, Impaired Stepping on Uneven Surface,Impaired Squatting, Impaired Balance,Subjective C/ O Pain,Impaired Self Care/Self Management Prognosis Rehab Potential Good Clinical Impression Consistent with Diagnosis Yes Short Term Goals Number of Weeks 3 Decrease Subjective C/O Pain Yes: Improve pain at worst to 7/10 at worst to improve overall QOL Improve Self Care/Self Management Yes Patient to be Ind w/ HEP Yes Nursing Home Goals Number of Weeks 6 Increase Range of Motion Yes: Improve cervical AROM ext to 30-35, LF to 40, rot to 55 -60 Increase Strength Yes: Improve RLE & scap strength to 4-4+/5 grossly to assist w function/posture Improve Ability to Climb Stairs Yes: descend 1 flight with pain <5/10 Improve Neck Disability Index Score Yes: Improve score to 7 or less to improve overall QOL Improve LEFI Score Yes: Improve score to 53/80 to improve overall QOL Decrease Subjective C/O Pain Yes: Improve pain at worst to 5/10 at worst to improve overall QOL Outpatient Therapy Plan of Care Treatment Plan May Include Therapeutic Exercise Including Home Yes Exercise Program Manual Therapy Techniques Yes Neuromuscular Re-education Yes Therapeutic Activities to Return to Yes Previous Functional/Work Level Gait Training Yes ADL/Self Care Education Yes Mechanical Traction Yes Dry Needling Yes Thermal Modalities Yes Electrical Stimulation Yes Ultrasound/Phonophoresis Yes Iontophoresis Yes Orthotics/Bracing/Splinting Yes Vasopneumatic Compression Pump Yes Massage Yes Group Therapy for Medicare Yes Eval/Re-Eval Yes Frequency Times per week 2 Duration Number of Weeks 6 Addendums This patient is a candidate for social No or vocational rehab? Patient/Guardian verbally acknowledges Yes understanding of treatment program and consents to further treatment? Patient/Guardian verbally acknowledges Yes understanding of diagnosis, prognosis and goals for treatment? Eval Complexity PT Charges 51410 - Moderate Complexity PHYSICIAN CERTIFICATION: I certify the specified therapy services for Sumanth Joyce are required, authorized, and reviewed every 30 days.
--- NOTE | 2024-11-05 16:22 | HMH.RHREAS ---
Rehab Reassessment Rehab OP Re-assessment Start: 10/10/24 15:05 Freq: Status: Active Protocol: Document 11/05/24 15:26 NELLYCALOS (Rec: 11/05/24 16:21 MIKAEL [id number]) E-signed By Nunu Barroso PT Neck Disability Index Neck Disability Index Section 1: Pain Intensity The pain is moderate at the moment Section 2: Personal Care (washing, I can look after myself dressing, etc.) normally but it causes extra pain Section 3: Lifting I can lift heavy weights but it gives extra pain Section 4: Reading I can read as much as I want to with slight pain in my neck Section 5: Headaches I have moderate headaches, which come frequently Section 6: Concentration I can concentrate fully when I want to with slight difficulty Section 7: Work I can do most of my usual work , but no more Section 8: Driving I can drive my car as long as I want with slight pain in my neck Section 9: Sleeping My sleep is slightly disturbed (less than 1 hr sleepless) Section 10: Recreation I am able to engage in all my recreation activities with some pain in NDI Score 14 Lower Extremity Functional Index Activities Today, do you or would you have any difficulty at all with: a.Any of your usual work, housework or Quite a bit of difficulty school activities b. Your usual hobbies, recreational or Quite a bit of difficulty sporting activities c. Getting into or out of the bath Quite a bit of difficulty d. Walking between rooms A little bit of difficulty e. Putting on your shoes or socks Moderate difficulty f. Squatting Moderate difficulty g. Lifting an object, like a bag of Moderate difficulty groceries from the floor h. Performing light activities around A little bit of difficulty your home i. Performing heavy activities around A little bit of difficulty your home j. Getting into or out of a car A little bit of difficulty k. Walking 2 blocks Moderate difficulty l. Walking a mile Extreme difficulty or unable to perform activity m. Going up or down 10 stairs (about 1 Quite a bit of difficulty flight of stairs) n. Standing for 1 hour Quite a bit of difficulty o. Sitting for 1 hour No difficulty p. Running on even ground Extreme difficulty or unable to perform activity q. Running on uneven ground Extreme difficulty or unable to perform activity r. Making sharp turns while running fast Extreme difficulty or unable to perform activity s. Hopping Extreme difficulty or unable to perform activity t. Rolling over in bed Moderate difficulty LEFI Score Lower Extremity Functional Index Score 31 Rehab Re-assessment Subjective Subjective Pt reports only 10% improvement in R sided neck and R lateral knee pain since starting PT. Pt reports only intermittent compliance with HEP. Pt reports continued 8-9/ 10 pain at worst on VAS. Pt reports R sided neck pain is aggravated by rotating bilaterally and looking up. Pt reports R lateral knee pain is aggravated by twisting of the knee, states this often makes his knee feel like it will give out. Denies falls or required use of an AD. Objective Objective Notes Palpation: 2/4 TTP of C4-C7, R cervical PS & UT/LS mm; 1/4 TTP of R lateral tibiofemoral joint line Cervical AROM: flex 45, ext 30 , RLF 25, LLF 30, Rrot 50, Lrot 45 (R sided neck pain reported with all planes) RLE MMT: hip 4-/5 grossly, knee flex/ext 4/5 grossly Assessment Assessment Notes Pt has only attended 4 PT treatment sessions since his initial evaluation. Pt demonstrated no significant change in objective measures this date compared to the initial evaluation. Pt continues to report R sided neck pain and R lateral knee pain rated 8-9/10 at worst on VAS. Pt educated on importance of compliance with HEP to assist with overall progress. Overall, the pt would continue to benefit from skilled PT to further improve subjective report of pain, cervical AROM, LE/UE strength, posture, knee stability, balance/ proprioception and functional activity tolerance to improve overall QOL. Patient goals met ST/3 Goals Not Met HEP compliance, pain at worst Revised Goals n/a Plan Plan Continue initial POC Frequency of Therapy 2x/week Duration of therapy 4 more weeks Time and Billing Re-Eval Time 10 Re-Eval Billing Units 0 Charge for PT reassessment? No Charge for OT reassessment? No PHYSICIAN CERTIFICATION: I certify the specified therapy services for Sumanth Joyce are required, authorized, and reviewed every 30 days.
== END 2024-11-05 23:59 | disposition home or self-care (01) ==
LOC: PT 15:00
PROVIDERS: PCP Internal Medicine Adolescent Medicine; Visit Provider Internal Medicine Adolescent Medicine
DX: R55 Syncope and collapse (principal); R51.9 Headache, unspecified; M25.561 Pain in right knee; M54.2 Cervicalgia
CPT/HCPCS: 97110; 97140; 97163

== ENCOUNTER 2024-11-26 16:00 | Outpatient (RCR) | payer MEDICARE, OTHER, SELFPAY | END 2024-11-26 23:59 | disposition home or self-care (01) | LOC: PT 16:00 | PROVIDERS: PCP Internal Medicine Adolescent Medicine; Visit Provider Internal Medicine Adolescent Medicine | DX: M25.561 Pain in right knee (principal); M54.2 Cervicalgia | CPT/HCPCS: 97035; 97110; 97140; 97760 ==

== ENCOUNTER 2024-11-30 17:34 | Emergency (ER) | payer MEDICARE, OTHER, SELFPAY ==
[2024-11-30 17:38] VITALS: BP 122/50; PULSE 63; RESP 16; TEMP 36.5; O2SAT 96; BMI 36.9
--- NOTE | 2024-11-30 17:45 | ED_ITS ---
Discharge Plan Disposition Patient Disposition: Home, Self-Care Condition: Good Prescriptions Prescriptions: New penicillin V potassium 500 mg tablet 500 mg PO BID 10 Days Qty: 20 0RF No Action Eliquis 5 mg tablet 5 mg PO BID atorvastatin 80 mg tablet 80 mg PO DAILY citalopram 20 mg tablet 20 mg PO DAILY Trulicity 1.5 mg/0.5 mL pen injector 1.5 mg SQ WEEKLY Rx Instructions: ON WEDNESDAYS amlodipine-benazepril 2.5-10 mg capsule 1 cap PO Jardiance 10 mg tablet 10 mg PO Patient Comments: TAKE ONE TABLET BY MOUTH EVERY DAY pantoprazole 40 mg tablet,delayed release (DR/EC) 40 mg PO DAILY Qty: 30 5RF fluticasone propionate [Flonase Allergy Relief] 50 mcg/actuation spray,suspension 2 spray intranasal DAILY PRN (Reason: allergies) Rx Instructions: administer into each nostril alfuzosin 10 mg Tablet Extended Release 24 Hr 10 mg PO DAILY budesonide-formoterol 160-4.5 mcg/actuation Hfa Aerosol Inhaler 2 puff INHALATION BID ranolazine 1,000 mg Tablet Extended Release 12 Hr 1,000 mg PO BID Entresto 24-26 mg Tablet 1 tab PO BID 30 Days Qty: 60 0RF isosorbide mononitrate 30 mg Tablet Extended Release 24 Hr 30 mg PO DAILY 30 Days Qty: 30 0RF carvedilol 12.5 mg tablet 6.25 mg PO BID 30 Days Qty: 0 0RF bumetanide 1 mg tablet 1 mg PO DAILY Qty: 30 0RF Referrals Follow up/Referrals: Huan Rizzo MD [Primary Care Provider] - See instructions Activity Restrictions/Add. Instructions Additional Instructions/Restrictions: As we discussed, it appears that you have an infection of the top layer of your hand. It appears to be consistent with any type of infection called erysipelas. I prescribed a course of antibiotics. Please return with any new or worsening symptoms. Clinical Impressions Clinical Impression: Erysipelas Print Language Print Language: Khmer Discharge ED Provider: Jay Veronica Adult HPI General Chief complaint: PAIN Stated complaint: L Hand Swelling Time Seen by Provider: 11/30/24 17:45 Mode of Arrival: Ambulatory Source of Information: Patient Description of Symptoms (Recalled from ER Triage Doc. by RN): Left hand swelling x 24 hours. Patient denies any injury. History of Present Illness HPI narrative: The patient presents to the Emergency Department with a chief complaint of a burning sensation and skin changes on his hand that started yesterday morning. He reports no known injury or trauma to the area. The patient states that yesterday morning while sitting in his chair watching TV, he noticed a burning sensation in a specific area of his hand. He describes the sensation as feeling like I had burned myself, but I hadn't done anything that would. The affected area was initially red and felt like the skin was on fire when touched. Since onset, the condition has progressively worsened and spread. The patient notes that the redness has extended outward from the initial site. Associated symptoms include pain when making a fist, localized to the affected area. The patient denies any recent injuries, scrapes, or known trauma to the hand. He reports bruising easily in general but does not recall any specific incidents that could have caused this issue. The patient also mentions waking up with the affected hand feeling asleep this morning, though he is unsure if this is related to the skin condition or his sleeping position. Additionally, the patient reports an episode of lightheadedness and nausea last night around 4 AM when he got up to urinate. He experienced dry heaves and dizziness but did not actually vomit. The patient mentions ongoing issues with lightheadedness, which he attributes to low blood pressure (noting readings as low as 95/45). He states that a medication was recently discontinued by his doctor due to its potential to cause dizziness, which seemed to help somewhat, though the symptoms still come and go. The patient denies any fever or chills. He reports taking 11 different medications, including blood thinners, but does not specify which ones. He mentions recent positive feedback from his doctors regarding lab results and heart health, with a reduction in the frequency of follow-up appointments. Please note that above description of symptoms, in this electronic medical record under categorization of recalled from ER triage doctor by RN are reflective of an initial nursing assessment, however, is not reflective of my full history and physical exam that was personally taken and clarified. Consequentially, this preceding description of symptoms, which may include the patient's categorized chief complaint in the EMR, do not reflect my personal clinical impression, and the ultimate description of history of present illness and patient stated complaints should be deferred to this section of the note. Unless stated otherwise or congruent with this section of the note, additional signs, symptoms, or incongruence should be interpreted as inaccurate with my clinical impression. Related Data Home Medications ?Medication ?Instructions ?Recorded ?Confirmed apixaban 5 mg tablet (Eliquis) 5 mg PO BID 12/07/22 02/26/24 atorvastatin 80 mg tablet 80 mg PO DAILY 12/07/22 02/26/24 citalopram 20 mg tablet 20 mg PO DAILY 12/07/22 02/26/24 dulaglutide 1.5 mg/0.5 mL 1.5 mg SQ WEEKLY 12/07/22 02/26/24 subcutaneous pen injector (Trulicity) alfuzosin 10 mg tablet,extended 10 mg PO DAILY 02/10/24 02/26/24 release 24 hr budesonide-formoterol HFA 160 2 puff inhalation BID 02/10/24 02/26/24 mcg-4.5 mcg/actuation aerosol inhaler fluticasone propionate 50 2 spray intranasal DAILY PRN 02/10/24 02/26/24 mcg/actuation nasal allergies spray,suspension (Flonase Allergy Relief) ranolazine 1,000 mg 1,000 mg PO BID 02/10/24 02/26/24 tablet,extended release,12 hr amlodipine 2.5 mg-benazepril 10 mg 1 cap PO 02/26/24 02/26/24 capsule empagliflozin 10 mg tablet 10 mg PO 02/26/24 02/26/24 (Jardiance) Previous Rx's ?Medication ?Instructions ?Recorded pantoprazole 40 mg tablet,delayed 40 mg PO DAILY #30 tabs 11/09/23 release bumetanide 1 mg tablet 1 mg PO DAILY #30 tabs 02/13/24 carvedilol 12.5 mg tablet 6.25 mg (1/2 x 12.5 mg) PO BID bp 02/13/24 30 days #0 tabs isosorbide mononitrate 30 mg 30 mg PO DAILY 30 days #30 tabs 02/13/24 tablet,extended release 24 hr sacubitril 24 mg-valsartan 26 mg 1 tab PO BID 30 days #60 tabs 02/13/24 tablet (Entresto) penicillin V potassium 500 mg 500 mg PO BID 10 days #20 tabs 11/30/24 tablet Allergies Allergy/AdvReac Type Severity Reaction Status Date / Time No Known Allergies Allergy Verified 02/26/24 13:59 [facility] Disclaimer: The information contained in this section may have been updated after the patient was seen, as this information can be updated by other users. Medical History (Updated 11/30/24 @ 19:47 by Jay Veronica MD) CAD (coronary artery disease) Sinusitis Tinnitus T2DM (type 2 diabetes mellitus) HLD (hyperlipidemia) HTN (hypertension), benign Surgical History History of esophagogastroduodenoscopy (EGD) Stented coronary artery History of cardiac catheterization Family History Other Cancer Coronary artery disease Family history of COPD (chronic obstructive pulmonary disease) Social History Smoking Status: Never smoker alcohol intake: never substance use type: denies use current occupational status: retired Travel in the last 8 weeks?: Inside the [place] Have you lived/traveled outside US in past 30 days?: No Contact w/someone who lives/traveled outside US past 30 days?: No Exposure to someone with infectious disease in past 14 days?: No Do you have a fever (greater than 100.4 F or 38 C)?: No Have you tested positive for COVID-19?: No Exposed to someone with COVID-19 in past 14 days?: No Do you have a sore throat?: No Do you have a cough?: No Do you have any weakness?: No Do you have any diarrhea?: No Are you experiencing any unusual bleeding?: No Do you have any muscle aches/pain?: No Do you have any abdominal pain?: No Are you experiencing loss of taste or smell?: No Other Medical History Have you received the Flu Vaccine for this season: No Have you received the Pneumonia Vaccine: Yes ROS Obtained: Yes other As per HPI Physical Exam General General appearance: alert and in no apparent distress Head Head exam: atraumatic and normocephalic Eye Eye exam: Present normal appearance Neck Neck exam: Present normal inspection Chest Chest inspection: Present normal inspection and symmetric chest wall rise Respiratory Respiratory exam: Present normal lung sounds bilaterally; Absent respiratory distress Cardiovascular Cardiovascular exam: Present regular rate and normal rhythm Abdominal Exam Abdominal exam: Present soft Neurological Exam Neurological exam: Present alert and oriented X3 Psychiatric Psychiatric exam: Present normal affect and normal mood Skin Skin exam: Present warm and dry Other Other exam information: Well-demarcated area of erythema on the dorsal aspect of left hand, nonblanchable, warm to touch, well-circumscribed, distally neurovascularly intact. No bony tenderness to palpation Medical Decision Making Medical Records Medical records reviewed: Yes I reviewed the patient's medical records. Screening: Per USPSTF and CDC recommendations, given the prevalence of disease in our region, it is our hospital?s policy to screen for HIV and viral Hepatitis for all patients aged 18 and over and those with ongoing risk factors. Robe Inquiry Pt receiving controlled substance: No Vital Signs: 11/30/24 17:38 11/30/24 19:58 Temperature 97.7 F 97.9 F Temperature Source Temporal Artery Scan Oral Pulse Rate 67 Pulse Rate [Right] 63 Respiratory Rate 16 18 Blood Pressure 137/84 Blood Pressure [Right Arm] 122/50 L Blood Pressure Mean [Right Arm] 74 Blood Pressure Source Automatic Cuff Blood Pressure Position Sitting 02 Sat by Pulse Oximetry 96 Oxygen Delivery Method Room Air Room Air Lab Data Lab Results 11/30/24 18:19: WBC 10.4, RBC 3.79 L, Hgb 13.6 L, Hct 40.3 L, MCV 106.3 H, MCH 35.9 H, MCHC 33.7, RDW 13.0, Plt Count 183, MPV 9.7, Neut % (Auto) 83.3 H, Lymph % (Auto) 8.1 L, Davie % (Auto) 8.0, Eos % (Auto) 0.1, Baso % (Auto) 0.2, Neut # (Auto) 8.6 H, Lymph # (Auto) 0.8, Davie # (Auto) 0.8, Eos # (Auto) 0.0, Baso # (Auto) 0.0, ESR 12, PT 13.5 H, INR 1.24 H, Sodium 134 L, Potassium 4.9, Chloride 103, Carbon Dioxide 26, Anion Gap 9.9, BUN 27 H, Creatinine 1.80 H, Estimated Creat Clear 56, Estimated GFR 37 L, Est GFR ( Amer) 45 L, Glucose 124 H, Calcium 9.0, Total Bilirubin 1.6 H, AST 28, ALT 13, Alkaline Phosphatase 60, Total Protein 6.5, Albumin 3.8, Globulin 2.7, Albumin/Globulin Ratio 1.4 11/30/24 18:19 11/30/24 18:19 Orders (Tests/Meds): ORDERS Category Date Time Status CBC w/Auto Diff [Complete Blood Count Auto Diff] Stat Lab 11/30/24 18:19 Completed CMP [Comprehensive Metabolic Panel] Stat Lab 11/30/24 18:19 Completed ESR [Erythrocyte Sedimentation Rate] Stat Lab 11/30/24 18:19 Completed PT INR [Prothrombin Time INR] Stat Lab 11/30/24 18:19 Completed Medical Decision Narrative: Patient with history and exam per above presenting for evaluation of rash in the absence of trauma Diagnoses considered include cellulitis, erysipelas, no reported history of trauma, differential also includes ecchymosis however again no history of trauma and lesion is warm to touch. Range of motion within normal limits, deep space infection much less likely ED workup and treatment included: ORDERS Category Date Time Status CBC w/Auto Diff [Complete Blood Count Auto Diff] Stat Lab 11/30/24 18:19 Completed CMP [Comprehensive Metabolic Panel] Stat Lab 11/30/24 18:19 Completed ESR [Erythrocyte Sedimentation Rate] Stat Lab 11/30/24 18:19 Completed PT INR [Prothrombin Time INR] Stat Lab 11/30/24 18:19 Completed Labs were independently interpreted by me, significant for no acute findings My clinical impression at this time is most consistent with erysipelas I discussed my clinical impression with patient and answered all questions. At this time, the evidence for any other entities in the differential is insufficient to warrant any further testing or ED observation. This was explained to the patient. The patient was advised that persistent or worsening symptoms require further evaluation. Critical Care Critical Care Time Critical Care Time: No
--- OUTSIDE RECORDS SUMMARY | 2024-11-30 17:52 | XMS_ITS | Continuity of Care Document ---
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 Medication Details Route Status Patient Instructions Prescription Expires Prescription Number Last Dispense Date Ordering Provider Order Date Order Qty Source ALFUZOSIN HCL ER (alfuzosin HCl), 10 MG, TAB ER 24H, ORAL, EXELAN PHARMACE, 120 ea. BOTTLE Active [id number] 4 2023 90 Pharmac y Data Transac tion Service Facilit y AMLODIPINE BESYLATE-BE NAZEPRIL (amlodipine besylate/be nazepril HCl), 5 MG-20 MG, CAPSULE, ORAL, [employer] PHARMACEU, 100 ea. BOTTLE Active [id number] 4 2023 30 Pharmac y Data Transac tion Service Facilit y AMLODIPINE BESYLATE-BE NAZEPRIL (AMLODIPINE BESYLATE/BE NAZEPRIL), 2.5MG-10MG, CAPSULE, ORAL, [facility], 100 ea. BOTTLE Active [id number] 4 2023 90 Pharmac y Data Transac tion Service Facilit y BUDESONIDE- FORMOTEROL FUMARATE (budesonide /formoterol fumarate), 160-4.5MCG, HFA AER AD, INHALATION, ASTRAZENECA /PRA, 10.2 g AER W/ADAP Active [id number] 4 2023 30.6 Pharmac y Data Transac tion Service Facilit y BUDESONIDE- FORMOTEROL FUMARATE (budesonide /formoterol fumarate), 160-4.5MCG, HFA AER AD, INHALATION, ASTRAZENECA /PRA, 10.2 g AER W/ADAP Active [id number] 4 2023 10.2 Pharmac y Data Transac tion Service Facilit y CARVEDILOL (carvedilol ), 12.5 MG, TABLET, ORAL, [employer] 500 ea. BOTTLE Active [id number] 4 2023 180 Pharmac y Data Transac tion Service Facilit y CARVEDILOL (carvedilol ), 12.5 MG, TABLET, ORAL, [employer] 500 ea. BOTTLE Active [id number] 4 2023 180 Pharmac y Data Transac tion Service Facilit y PANTOPRAZOL E SODIUM (pantoprazo le sodium), 40 MG, TABLET DR, ORAL, [employer] 1000 ea. BOTTLE Active [id number] 4 2023 90 Pharmac y Data Transac tion Service Facilit y TRULICITY (DULAGLUTID E), 1.5 MG/0.5, PEN INJCTR, SUB-Q, [employer] 0.5 ml SYRINGE Cancele d [id number] : 2023 0 Pharmac y Data Transac tion Service Facilit y TRULICITY (DULAGLUTID E), 1.5 MG/0.5, PEN INJCTR, SUB-Q, [employer] 0.5 ml SYRINGE Active [id number] 4 2023 2 Pharmac y Data Transac tion Service Facilit y TRULICITY (DULAGLUTID E), 1.5 MG/0.5, PEN INJCTR, SUB-Q, [employer] 0.5 ml SYRINGE Active [id number] 4 2023 2 Pharmac y Data Transac tion Service Facilit y TRULICITY (DULAGLUTID E), 1.5 MG/0.5, PEN INJCTR, SUB-Q, [employer] 0.5 ml SYRINGE Active [id number] 2023 2 Pharmac y Data Transac tion Service Facilit y TRULICITY (DULAGLUTID E), 1.5 MG/0.5, PEN INJCTR, SUB-Q, [employer] 0.5 ml SYRINGE Cancele d [id number] : 2023 0 Pharmac y Data Transac tion Service Facilit y TRULICITY (DULAGLUTID E), 1.5 MG/0.5, PEN INJCTR, SUB-Q, [employer] 0.5 ml SYRINGE Cancele d [id number] : 2023 0 Pharmac y Data Transac tion Service Facilit y Immunizations Combined list of available immunizations from the Department of Defense and Veterans Affairs facilities. Immunization Series Date Given Administered By Site Reaction Lot Number CVX Code Drug Customer Service And Sales Consultant Status Comments Source COVID-19, mRNA, LNP-S, PF, 100 mcg or 50 mcg dose 2021 TONN, () Not Given COVID-19, mRNA, LNP-S, PF, 100 mcg or 50 mcg dose DoD influenza, high-dose, quadrivalent 2020 TONN, () Not Given influenza , high-dose , quadrival ent DoD zoster recombinant 2020 TONN, () Not Given zoster recombina nt DoD zoster recombinant 2020 TONN, () Not Given zoster recombina nt DoD influenza, high-dose, quadrivalent 2019 LO, () Not Given influenza , high-dose , quadrival ent DoD Influenza, high dose seasonal 2018 MULUKUTLA, () Not Given Influenza , high dose seasonal DoD Influenza, high dose seasonal 2015 TONN, () Not Given Influenza , high dose seasonal DoD zoster live 2013 TONNOSWALDO () Not Given zoster live DoD Social History Combined list of available smoking, tobacco, and other social history from Department of Defense and Veterans Affairs facilities. Social History Type Response Date Comment Sourc e This section is an empty social history section. DoD
--- OUTSIDE RECORDS SUMMARY | 2024-11-30 17:52 | XMS_ITS | Continuity of Care Document ---
Author Organization [facility]. 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 coronary artery without angina pectoris(I25.10) Onset:10-Mar-2023 Comments:Onset Date: 20230310 Chest pain Onset:09-Mar-2023 Paul Linn R2 DO Comments:Onset Date: 20230310 Mental Status Cognitive function finding 09-Mar-2023 Allergies and Adverse Reactions No Known Drug Allergies(Rio rgy) Onset: 09-Mar-2023 Medications aspirin 81 MG Delayed Releas e Oral Tablet;81 MILLIGRAM PO DAILY Start:10-Mar-2023 Comments:81 MG PO DAILY levocetirizine dihydrochlori de 5 MG Oral Tablet [Xyzal];5 MILLIGRAM PO DAILY Start:10-Mar-2023 Comments:5 MG PO DAILY citalopram 20 MG Oral Tablet ;20 MILLIGRAM PO DAILY Start:10-Mar-2023 Status:Discontinued Comments:20 MG PO DAILY 120 ACTUAT Fluticasone propionate 0.05 MG/ACTUAT Nasal Inhaler [Flonase];1 SPRAY NASAL DAILY Start:10-Mar-2023 Comments:1 SPRAY NASAL DAILY As Needed for ALLERGIES z-Med List Information;1 EAC H MISC .CANCEL AT DISCHARGE Start:10-Mar-2023 Comments:1 EACH MISC .CANCEL AT DISCHARGE 50 ML glucose 500 MG/ML Prefilled Syringe;25 MILLILITER PRN Quantity:1 Donna Collins MD Start:09-Mar-2023 Status:Discontinued Comments:[id number] Administration Instructions:GIVE DEXTROSE 50% IF PT CANNOT TAKE PO HAS IVACCESS 50 ML glucose 500 MG/ML Prefilled Syringe;50 MILLILITER PRN Quantity:1 Donna Collins MD Start:09-Mar-2023 Status:Discontinued Comments:[id number] Administration Instructions:GIVE DEXTROSE 50% IF PT CANNOT TAKE PO HAS IVACCESS glucagon (rDNA) 1 MG Injecti on [GlucaGen];1 MILLIGRAM PRN Quantity:1 Donna Collins MD Start:09-Mar-2023 Status:Discontinued Comments:[id number] Administration Instructions:For blood glucose <50 -- OR --symptomatic with blood glucose <60 FOR PT WITH NO IV ACCESS acetaminophen 325 MG Oral Tablet;650 MILLIGRAM Q4H PRN Quantity:2 Donna Collins MD Start:09-Mar-2023 Status:Discontinued Comments:[id number] Administration Instructions:Should not exceed 4000mg of acetaminophen daily ondansetron 2 MG/ML Injectab le Solution [Zofran];4 MILLIGRAM Q6H PRN Quantity:1 Donna Collins MD Start:09-Mar-2023 Status:Discontinued Comments:[id number] glucose 4000 MG Chewable Tablet;4 TABLET PRN Quantity:4 Donna Collins MD Start:09-Mar-2023 Status:Discontinued Comments:[id number] Administration Instructions:FOR BLOOD SUGAR <70 AND ABLE TO EAT/SWALLOW SAFELYEACH TAB = 4 GM DEXTROSE 1 ML morphine sulfate 2 MG/M L Prefilled Syringe;1 MILLIGRAM Q5M PRN Quantity:1 Donna Collins MD Start:09-Mar-2023 Status:Discontinued Comments:[id number] nitroglycerin 0.4 MG Subling ual Tablet [Nitrostat];0.4 MILLIGRAM Q5M PRN Quantity:1 Donna Collins MD Start:09-Mar-2023 Status:Discontinued Comments:[id number] POTASSIUM REPLACEMENT 1 EACH;[id number] Administration Instructions:FOLLOW PROTOCOL Quantity:0 Donna Collins MD Start:09-Mar-2023 Status:Discontinued Comments:[id number] Administration Instructions:FOLLOW PROTOCOL PHOSPHOROUS REPLACEMENT 1 EACH;[id number] Administration Instructions:FOLLOW PROTOCOL Quantity:0 Donna Collins MD Start:09-Mar-2023 Status:Discontinued Comments:[id number] Administration Instructions:FOLLOW PROTOCOL MAGNESIUM REPLACEMENT 1 EACH;[id number] Administration Instructions:FOLLOW PROTOCOL Quantity:0 Donna Collins MD Start:09-Mar-2023 Status:Discontinued Comments:[id number] Administration Instructions:FOLLOW PROTOCOL amLODIPine 5 MG / benazepril hydrochloride 40 MG Oral Capsule;1 CAPSULE PO DAILY Start:09-Mar-2023 Comments:1 CAP PO DAILY omeprazole 40 MG Delayed Release Oral Capsule;40 MILLIGRAM PO DAILY Start:09-Mar-2023 Comments:40 MG PO DAILY atorvastatin 80 MG Oral Tablet;80 MILLIGRAM PO DAILY Start:09-Mar-2023 Comments:80 MG PO DAILY dronedarone 400 MG Oral Tablet;400 MILLIGRAM PO BID Start:09-Mar-2023 Comments:400 MG PO BID apixaban 5 MG Oral Tablet;5 MILLIGRAM PO BID Start:09-Mar-2023 Comments:5 MG PO BID carvedilol 12.5 MG Oral Tablet;12.5 MILLIGRAM PO BID MEALS Start:09-Mar-2023 Comments:12.5 MG PO BID MEALS tadalafil 20 MG Oral Tablet [Cialis];20 MILLIGRAM PO DAILY Start:09-Mar-2023 Comments:20 MG PO DAILY As Needed for unknown TRULICITY;1.5 MILLIGRAM SUBCUTANEOUS Oh Start:09-Mar-2023 Comments:1.5 MG SUBQ Oh Social History Smoking Status Ex-smoker Recorded: 09-Mar-2023
[2024-11-30 18:31] LABS: Basophils % 0.2 % (0.1-2.0); Eosinophils % 0.1 % (0.1-12.0); Hematocrit 40.3 % (42.0-52.0); Hemoglobin 13.6 g/dL (14.1-18.0); Immature Granulocytes # 0.03 10^3uL; Immature Granulocytes % 0.3 %; Lymphocytes # 0.8 K/mm3 (0.7-4.5); Lymphocytes % 8.1 % (10-50); Mean Corpuscular HGB Conc 33.7 g/dL (31.8-35.4); Mean Corpuscular Hemoglobin 35.9 pg (27.0-31.2); Mean Corpuscular Volume 106.3 fl (80-94); Mean Platelet Volume 9.7 fl (7.4-10.4); Monocytes # 0.8 K/mm3 (0.1-1.0); Neutrophils # 8.6 K/mm3 (1.8-7.8); Neutrophils % 83.3 % (37.0-80.0); Nucleated Red Blood Cells # 0 10^3/uL; Nucleated Red Blood Cells % 0 %; Platelet Count 183 K/mm3 (142-424); Red Blood Count 3.79 M/mm3 (4.60-6.20); Red Cell Distribution Width-SD 50.2 fL; White Blood Count 10.4 K/mm3 (4.8-10.8)
[2024-11-30 18:33] LABS: Albumin Level 3.8 g/dl (3.5-5.0); Chloride 103 mmol/L (98-107); Potassium 4.9 mmoL/L (3.5-5.1); Sodium 134 mmol/L (136-145)
[2024-11-30 18:35] LABS: Blood Urea Nitrogen 27 mg/dl (9-20); Creatinine Clearance Estimated 56 mL/min (50-200); Estimated Glomerular Filt Rate 37 ml/min (>60); GFR (African American) 45 ML/MIN (>60)
[2024-11-30 18:36] LABS: Alanine Aminotransferase 13 U/L (12-78); Albumin/Globulin Ratio 1.4 (1.1-1.8); Alkaline Phosphatase 60 U/L (38-126); Anion Gap 9.9 mEq/L (5-15); Aspartate Amino Transferase 28 U/L (17-59); Bilirubin,Total 1.6 mg/dl (0.2-1.3); Carbon Dioxide 26 mmol/L (22.0-30.0); Globulin 2.7 g/dL (1.3-3.2); Glucose 124 mg/dl (74-100); Total Protein,Serum 6.5 g/dl (6.3-8.2)
[2024-11-30 18:38] LABS: INR 1.24 (0.9-1.1); Prothrombin Time 13.5 seconds (10.1-12.5)
[2024-11-30 19:18] LABS: Erythrocyte Sedimentation Rate 12 mm/hr (0-20)
[2024-11-30 19:58] VITALS: BP 137/84; PULSE 67; RESP 18; TEMP 36.6; O2SAT 100
== END 2024-11-30 20:04 | disposition home or self-care (01) ==
PROVIDERS: Emergency Provider Emergency Medicine; PCP Internal Medicine Adolescent Medicine
DX: A46 Erysipelas (principal)
CPT/HCPCS: 80053; 85025; 85610; 85651; 99282; 99283

== ENCOUNTER 2024-12-16 15:28 | Outpatient (CLI) | payer MEDICARE, OTHER, SELFPAY ==
--- OUTSIDE RECORDS SUMMARY | 2024-12-16 15:30 | XMS_ITS | Continuity of Care Document ---
Author Name [facility] Organization [facility] Care Team Providers Care Institutional Research Director Name Role Phone [facility] Unavailable Unavailable Medications Combined list of outpatient [...] ORAL, EXELAN PHARMACE, 120 ea. BOTTLE Active [id number] 4 2023 90 Pharmac y Data Transac tion Service Facilit y AMLODIPINE BESYLATE-BE NAZEPRIL (amlodipine besylate/be nazepril HCl), 5 MG-20 MG, CAPSULE, ORAL, [employer] PHARMACEU, 100 ea. BOTTLE Active [id number] 4 2023 30 Pharmac y Data Transac tion Service Facilit y AMLODIPINE BESYLATE-BE NAZEPRIL (AMLODIPINE BESYLATE/BE NAZEPRIL), 2.5MG-10MG, CAPSULE, ORAL, 'S LAB, 100 ea. BOTTLE Active [id number] 4 2023 90 Pharmac y Data Transac tion Service Facilit y BUDESONIDE- FORMOTEROL FUMARATE (budesonide /formoterol fumarate), 160-4.5MCG, HFA AER AD, INHALATION, ASTRAZENECA /PRA, 10.2 g AER W/ADAP Active [id number] 4 2023 30.6 Pharmac y Data Transac tion Service Facilit y BUDESONIDE- FORMOTEROL FUMARATE (budesonide /formoterol fumarate), 160-4.5MCG, HFA AER AD, INHALATION, ASTRAZENECA /PRA, 10.2 g AER W/ADAP Active [id number] 4 2023 10.2 Pharmac y Data Transac tion Service Facilit y PANTOPRAZOL E SODIUM (pantoprazo le sodium), 40 MG, TABLET NAEEM ALATORRE, [facility] 1000 ea. BOTTLE Active [id number] 4 2023 90 Pharmac y Data Transac tion Service Facilit y TRULICITY (DULAGLUTID E), 1.5 MG/0.5, PEN INJCTR, SUB-Q, [employer] 0.5 ml SYRINGE Cancele d [id number] : 2023 0 Pharmac y Data Transac tion Service Facilit y TRULICITY (DULAGLUTID E), 1.5 MG/0.5, PEN INJCTR, SUB-Q, [employer] 0.5 ml SYRINGE Active [id number] 4 2023 2 Pharmac y Data Transac tion Service Facilit y TRULICITY (DULAGLUTID E), 1.5 MG/0.5, PEN INJCTR, SUB-Q, [employer] 0.5 ml SYRINGE Active [id number] 4 2023 2 Pharmac y Data Transac tion Service Facilit y TRULICITY (DULAGLUTID E), 1.5 MG/0.5, PEN INJCTR, SUB-Q, [employer] 0.5 ml SYRINGE Active [id number] 4 2023 2 Pharmac y Data Transac tion Service Facilit y TRULICITY (DULAGLUTID E), 1.5 MG/0.5, PEN INJCTR, SUB-Q, [employer] 0.5 ml SYRINGE Cancele d [id number] : 2023 0 Pharmac y Data Transac tion Service Facilit y TRULICITY (DULAGLUTID E), 1.5 MG/0.5, PEN INJCTR, SUB-Q, [employer] 0.5 ml SYRINGE Cancele d [id number] : 2023 0 Pharmac y Data Transac tion Service Facilit y Immunizations Combined list of available immunizations from the Department of Defense and Veterans Affairs facilities. Immunization Series Date Given Administered By Site Reaction Lot Number CVX Code Drug Power Line Installer Status Comments Source COVID-19, mRNA, LNP-S, PF, [...] facilities. Social History Type Response Date Comment Sour e This section is an empty social history section. DoD
--- OUTSIDE RECORDS SUMMARY | 2024-12-16 15:30 | XMS_ITS | Continuity of Care Document ---
Author Organization [facility]. 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) Onset:10-Mar-2023 Comments:Onset Date: 20230310 Obesity, unspecified(E66.9) Onset:10-Mar-2023 Comments:Onset Date: 20230310 Essential (primary) hypertension(I10) Onset:10-Mar-2023 Comments:Onset Date: 20230310 Hyperlipidemia, unspecified( E78.5) Onset:10-Mar-2023 Comments:Onset Date: 20230310 Paroxysmal atrial fibrillati on Onset:10-Mar-2023 Comments:Onset Date: 20230310 Chest pain Onset:09-Mar-2023 Paul Linn R2 DO Comments:Onset Date: 20230310 Mental Status Cognitive function finding 09-Mar-2023 Allergies and Adverse Reactions No Known Drug Allergies(Rio rgy) Onset: 09-Mar-2023 Medications aspirin 81 MG Delayed Releas e Oral Tablet;81 MILLIGRAM PO DAILY Start:10-Mar-2023 Comments:81 MG PO DAILY z-Med List Information;1 EAC H MISC .CANCEL AT DISCHARGE Start:10-Mar-2023 Comments:1 EACH MISC .CANCEL AT DISCHARGE levocetirizine dihydrochlori de 5 MG Oral Tablet [Xyzal];5 MILLIGRAM PO DAILY Start:10-Mar-2023 Comments:5 MG PO DAILY 120 ACTUAT Fluticasone propionate 0.05 MG/ACTUAT Nasal Inhaler [Flonase];1 SPRAY NASAL DAILY Start:10-Mar-2023 Comments:1 SPRAY NASAL DAILY As Needed for ALLERGIES citalopram 20 MG Oral Tablet ;20 MILLIGRAM PO DAILY Start:10-Mar-2023 Status:Discontinued Comments:20 MG PO DAILY glucose 4000 MG Chewable Tablet;4 TABLET PRN Quantity:4 Donna Collins MD Start:09-Mar-2023 Status:Discontinued Comments:[id number] Administration Instructions:FOR BLOOD SUGAR <70 AND ABLE TO EAT/SWALLOW SAFELYEACH TAB = 4 GM DEXTROSE 50 ML glucose 500 MG/ML Prefilled Syringe;25 MILLILITER PRN Quantity:1 Donna Collins MD Start:09-Mar-2023 Status:Discontinued Comments:[id number] Administration Instructions:GIVE DEXTROSE 50% IF PT CANNOT TAKE PO HAS IVACCESS 50 ML glucose 500 MG/ML Prefilled Syringe;50 MILLILITER PRN Quantity:1 Donna Collins MD Start:09-Mar-2023 Status:Discontinued Comments:[id number] Administration Instructions:GIVE DEXTROSE 50% IF PT CANNOT TAKE PO HAS IVACCESS glucagon (rDNA) 1 MG Injecti on [GlucaGen];1 MILLIGRAM PRN Quantity:1 Donna Collins MD Start:09-Mar-2023 Status:Discontinued Comments:[id number] Administration Instructions:For blood glucose <50 -- OR --symptomatic with blood glucose <60 FOR PT WITH NO IV ACCESS ondansetron 2 MG/ML Injectab le Solution [Zofran];4 MILLIGRAM Q6H PRN Quantity:1 Donna Collins MD Start:09-Mar-2023 Status:Discontinued Comments:[id number] acetaminophen 325 MG Oral Tablet;650 MILLIGRAM Q4H PRN Quantity:2 Donna Collins MD Start:09-Mar-2023 Status:Discontinued Comments:[id number] Administration Instructions:Should not exceed 4000mg of acetaminophen daily MAGNESIUM REPLACEMENT 1 EACH;[id number] Administration Instructions:FOLLOW PROTOCOL Quantity:0 Donna Collins MD Start:09-Mar-2023 Status:Discontinued Comments:[id number] Administration Instructions:FOLLOW PROTOCOL 1 ML morphine sulfate 2 MG/M L Prefilled Syringe;1 MILLIGRAM Q5M PRN Quantity:1 Donna Collins MD Start:09-Mar-2023 Status:Discontinued Comments:[id number] nitroglycerin 0.4 MG Subling ual Tablet [Nitrostat];0.4 MILLIGRAM Q5M PRN Quantity:1 Donna Collins MD Start:09-Mar-2023 Status:Discontinued Comments:[id number] POTASSIUM REPLACEMENT 1 EACH;[id number] Administration Instructions:FOLLOW PROTOCOL Quantity:0 Donna Collins MD Start:09-Mar-2023 Status:Discontinued Comments:[id number] Administration Instructions:FOLLOW PROTOCOL PHOSPHOROUS REPLACEMENT 1 EACH;[id number] Administration Instructions:FOLLOW PROTOCOL Quantity:0 Donna Collins MD Start:09-Mar-2023 Status:Discontinued Comments:[id number] Administration Instructions:FOLLOW PROTOCOL tadalafil 20 MG Oral Tablet [Cialis];20 MILLIGRAM PO DAILY Start:09-Mar-2023 Comments:20 MG PO DAILY As Needed for unknown apixaban 5 MG Oral Tablet;5 MILLIGRAM PO BID Start:09-Mar-2023 Comments:5 MG PO BID dronedarone 400 MG Oral Tablet;400 MILLIGRAM PO BID Start:09-Mar-2023 Comments:400 MG PO BID amLODIPine 5 MG / benazepril hydrochloride 40 MG Oral Capsule;1 CAPSULE PO DAILY Start:09-Mar-2023 Comments:1 CAP PO DAILY carvedilol 12.5 MG Oral Tablet;12.5 MILLIGRAM PO [...]
--- NOTE | 2024-12-16 15:33 | XR_ITS ---
FINAL REPORT TECHNIQUE: Chest PA & Lateral CLINICAL HISTORY: Right sided chest wall pain, shortness of breath COMPARISON: 02/10/2024 FINDINGS: 2 views of the chest were performed. The heart size is normal. The mediastinum is within normal limits. The lungs are underinflated. There is mild basilar atelectasis. There are no pleural effusions. There is no pneumothorax. There is mild thoracic scoliosis convex to the right. IMPRESSION: Underinflation with mild basilar atelectasis. Reviewed, Interpreted and Dictated by Nael Falcon MD Transcribed by Mary Villa Authenticated and [facility]
--- OUTSIDE RECORDS SUMMARY | 2024-12-16 15:33 | XMS_ITS | Patient Health Record ---
Author Organization [facility] Address [address] [place] [phone] Care Team Providers Care Route Carrier Name Role Phone DR LINDA FRANCES Primary Care Provider KOLBY Flynn [phone] Allergies No Known Allergies Reason For Referral No Information Medications Medication SIG (Take, Route, Frequency, Duration) Notes Start Date End Date Status Isosorbide Mononitrate ER 30 MG 1 tablet in the morning Orally Once a day for 30 day(s) Active Centrum Silver - as directed Orally Active Carvedilol 12.5 MG 1 tablet with food Orally Twice a day for 30 day(s) Active Atorvastatin Calcium 40 MG 1 tablet Orally Once a day for 30 day(s) Active Citalopram Hydrobromide 20 MG 1 tablet Orally Once a day for 30 day(s) Active Dulaglutide 1.5 MG/0.5ML as directed Subcutaneous Active metFORMIN HCl 1000 MG 1 tablet with a me al Orally Once a day for 30 day(s) 2X A DAY Active amLODIPine Besy-Benazepril HCl 5-40 MG as directed Orally Active Omeprazole 40 MG 1 capsule 30 minutes before morning meal Orally Once a day for 30 day(s) Active Problems Problem Type SNOMED Code ICD Code Onset Dates Problem Status W/U Status Risk Notes Problem Type II diabetes mellitus without complication (449161267) Type 2 diabetes mellitus without complications (E11.9) Active confirmed Problem [id number] Age-related osteoporosis without current pathological fracture (M81.0) Active confirmed Plan Of Treatment Pending Test Test Name Order Date BD Dexa Bone Density Axial 10/21/2021 BD Dexa Bone Density Axial 10/01/2021 C Telopeptide Serum 10/21/2021 Comp Metabolic Panel 10/21/2021 Parathyroid Hormone Intact 10/21/2021 Vitamin D 25 Hydroxy Level (Deficiency) 10/21/2021 BD DXA Bone Density Axial 10/12/2021 Procollagen Type 1 Propeptide 10/21/2021 Insurance Providers Payer Name Payer Address Payer Phone Subscriber Number Group Number Insured Name Patient Relationship to Insured Coverage Start Date Coverage End Date MEDICARE [address] [place] [phone] [id number] GHAZALA LEAVITT Self - patient is the insured 3 [employer] [address] [place] [address] [id number] GHAZALA LEAVITT Self - patient is the insured Medical (General) History Medical History History ICD Code Cardiovascular: Hypertension, Gastrointestinal: Gastric Reflux (GERD), Genitourinary: Sexual Difficulty, Endocrine: Diabetes, Surgical History Surgery Date(Month/Year) Oral Surgery Cardiac Stent Fracture Repair Hospitalization History Reason Date(Month/Year) Hospitalization
== END 2024-12-16 23:59 | disposition home or self-care (01) ==
LOC: RAD 15:29
PROVIDERS: PCP Internal Medicine Adolescent Medicine; Visit Provider Nurse Practitioner Family
DX: J98.11 Atelectasis (principal)
CPT/HCPCS: 71046

== ENCOUNTER 2024-12-30 15:38 | Outpatient (CLI) | payer MEDICARE, OTHER, SELFPAY ==
--- OUTSIDE RECORDS SUMMARY | 2024-12-30 15:42 | XMS_ITS | Patient Health Record ---
Author Organization [facility] Address [address] [place] [phone] Care Team Providers Care Supervisor Telephone Information Name Role Phone DR ILNDA FRANCES Primary Care Provider KOLBY Flynn [phone] Allergies No Known Allergies Reason For Referral [...] Problem Type II diabetes mellitus without complication (671424125) Type 2 diabetes mellitus without complications (E11.9) Active confirmed Problem 34804780 Age-related osteoporosis without current pathological fracture (M81.0) [...] Date MEDICARE [address] [place] [phone] [id number] GHAZALA LEAVITT Self - patient is the insured 3 [facility] [address] [place] [address] [id number] GHAZALA LEAVITT Self - patient is the insured Medical (General) History Medical History History ICD Code Cardiovascular: Hypertension, Gastrointestinal: Gastric Reflux (GERD), Genitourinary: Sexual Difficulty, Endocrine: Diabetes, Surgical History Surgery Date(Month/Year) Oral Surgery Cardiac Stent Fracture Repair Hospitalization History Reason Date(Month/Year) Hospitalization
== END 2024-12-30 23:59 | disposition home or self-care (01) ==
LOC: RT 15:39
PROVIDERS: PCP Internal Medicine Adolescent Medicine; Visit Provider Internal Medicine Adolescent Medicine
DX: I95.1 Orthostatic hypotension (principal); R00.2 Palpitations; R00.8 Other abnormalities of heart beat
CPT/HCPCS: 93225; 93226

== ENCOUNTER 2025-02-06 17:00 | Outpatient (RCR) | payer MEDICARE, OTHER, SELFPAY ==
--- NOTE | 2025-01-20 16:20 | HMH.PTOPEV ---
PT Outpatient Evaluation Rehab PT Outpatient Evaluation Start: 01/20/25 15:08 Freq: Status: Active Protocol: Document 01/20/25 15:47 PHOHILLARY (Rec: 01/20/25 16:19 PHORTONI [id number]) E-signed By Douglas Rodrigues, PT Outpatient Therapy Subjective History Subjective History This is the initial PT eval for Sumanth Joyce, 74 yowm who presents with c/o increased neck pain on the R side which is present when turning his head only, with no pain in neutral. He reports symptoms have been present for ~ 1 yr with insidious onset of symptoms. He also reports frequent headaches that he describes as, Every day it feels like I have a baseball cap on my head. He reports no c/o radicular symptoms. He has PMH of CAD , HTN, DM-II, and tinnitus. Chief Complaint Pain Symptom Type Ache Symptoms Aggravated Twisting By Prior Functional None Limitations Current Functional Driving,Recreation Activity Limitations Symptom Description Activity Dependent Level of pain today 0 (0-10) Pain scale - at its 0 best (0-10) Pain scale - at its 6 worst (0-10) Cervical Eval Flexibility Deficits Upper Trapezius (R) Moderate Tightness,(L) Moderate Tightness Muscle Length Levaetor Scapulae (R) Moderate Tightness,(L) Moderate Tightness Muscle Length Passive Joint Mobility Cervical PIVM Dec: R C2/3 L C2/3 R C3/4 L C3/4 R C4/5 L C4/5 R C5/6 L C5/6 R C6/7 L C6/7 R C7/T1 L C7/T1 WNL: R OA L OA R AA L AA AROM Cervical Spine 0-10 Extension Active Range of Motion ( degrees) Cervical Spine 0-65 Flexion Active Range of Motion (degrees) Cervical Spine Right 0-25 Lateral Flexion Active Range of Motion (degrees) Cervical Spine Left 0-35 Lateral Flexion Active Range of Motion (degrees) Cervical Spine Right 0-45 Rotation Active Range of Motion ( degrees) Cervical Spine Left 0-45 Rotation Active Range of Motion ( degrees) MMT Bilateral Deltoid (C5) 5 Normal Biceps Brachii 5 Normal Strength Grade Wrist Extension 5 Normal Strength Grade Triceps Brachii 5 Normal Strength Grade Wrist Flexion 5 Normal Strength Grade Extensor Pollicis 5 Normal Longus Strength Grade Finger Abduction 5 Normal Strength Grade Special Test C-Spine Foraminal Negative Left,Positive Right Compression ( [place]) Test C-Spine Foraminal Negative Distraction Test C-Spine Compression Negative Left,Positive Right Test Neck Disability Index Neck Disability Index Section 1: Pain The pain is very mild at moment Intensity Section 2: Personal I can look after myself normally but it causes extra Care (washing, pain dressing, etc.) Section 3: Lifting I can lift heavy weights without extra pain Section 4: Reading I can read as much as I want to with slight pain in my neck Section 5: Headaches I have moderate headaches, which come frequently Section 6: I can concentrate fully when I want to with no Concentration difficulty Section 7: Work I can do most of my usual work, but no more Section 8: Driving I can drive my car as long as I want with slight pain in my neck Section 9: Sleeping My sleep is slightly disturbed (less than 1 hr sleepless) Section 10: I am able to engage in all my recreation activities Recreation with some pain in NDI Score 11 Outpatient Therapy Assessment Impairments Problems/ Impaired Range of Motion,Impaired Driving,Impaired Impairmments Household Care,Impaired Recreational Activities, Subjective C/O Pain,Impaired Self Care/Self Management Prognosis Rehab Potential Good Comment Skilled therapy is indicated to reduce pain and improve cervical ROM in order to aid pt return to PLOF. Clinical Impression Consistent with Yes Diagnosis Short Term Goals Number of Weeks 2 Increase Range of Yes: C-spine by 5 deg all dir Motion Improve Neck Yes: 9 or less Disability Index Score Decrease Subjective Yes: 4/10 with turning head C/O Pain Patient to be Ind w/ Yes HEP Wheat Shipper Goals Number of Weeks 4 Increase Range of Yes: C-spine extension by 15 deg Motion Improve Ability For Yes: without pain Household Care Improve Neck Yes: 6 or less Disability Index Score Decrease Subjective Yes: 2/10 when turning head C/O Pain Patient to be Ind w/ Yes Advanced HEP Outpatient Therapy Plan of Care Treatment Plan May Include Therapeutic Exercise Yes Including Home Exercise Program Manual Therapy Yes Techniques Neuromuscular Re- Yes education Therapeutic Yes Activities to Return to Previous Functional/Work Level ADL/Self Care Yes Education Thermal Modalities Yes Electrical Yes Stimulation Ultrasound/ Yes Phonophoresis Massage Yes Group Therapy for Yes Medicare Eval/Re-Eval Yes Frequency Times per week 2 Duration Number of Weeks 4 Addendums This patient is a No candidate for social or vocational rehab ? Patient/Guardian Yes verbally acknowledges understanding of treatment program and consents to further treatment? Patient/Guardian Yes verbally acknowledges understanding of diagnosis, prognosis and goals for treatment? Eval Complexity PT Charges 27597 - High Complexity Shoulder/Elbow Eval Shoulder Objective Measurements Elbow Objective Measurements PHYSICIAN CERTIFICATION: I certify the specified therapy services for Sumanth Joyce are required, authorized, and reviewed every 30 days.
== END 2025-02-06 23:59 | disposition home or self-care (01) ==
LOC: PT 17:00
PROVIDERS: Visit Provider Internal Medicine Adolescent Medicine
DX: M54.2 Cervicalgia (principal)
CPT/HCPCS: 97014; 97110; 97163; G0283

== ENCOUNTER 2025-02-10 09:56 | Outpatient (POV) | payer MEDICARE, OTHER, SELFPAY ==
--- OUTSIDE RECORDS SUMMARY | 2025-02-10 10:00 | XMS_ITS | Continuity of Care Document ---
Author Name [facility] Organization [facility] Care Team Providers Care Sanitizer Name Role Phone [facility] Unavailable Unavailable Medications Combined list of outpatient medications from Department of Defense and Veterans Affairs facilities.Medications provided include 1) outpatient medications from the last 15 months, and 2) patient-reported medications. Medication Details Route Status Patient Instructions Prescription Expires Prescription Number Last Dispense Date Ordering Provider Order Date Order Qty Source AMLODIPINE BESYLATE-BE NAZEPRIL (AMLODIPINE BESYLATE/BE NAZEPRIL), 2.5MG-10MG, CAPSULE, ORAL, 'S LAB, 100 ea. BOTTLE Active [id number] 4 2023 90 Pharmac y Data Transac tion Service Facilit y BUDESONIDE- FORMOTEROL FUMARATE (budesonide /formoterol fumarate), 160-4.5MCG, HFA AER AD, INHALATION, ASTRAZENECA /PRA, 10.2 g AER W/ADAP Active [id number] 4 2023 30.6 Pharmac y Data Transac tion Service Facilit y BUDESONIDE- FORMOTEROL FUMARATE (budesonide /formoterol fumarate), 160-4.5MCG, HFA AER AD, INHALATION, ASTRAZENECA /PRA, 10.2 g AER W/ADAP Active [id number] 4 2023 10.2 Pharmac y Data Transac tion Service Facilit y TRULICITY (DULAGLUTID E), 1.5 MG/0.5, PEN INJCTR, SUB-Q, [employer] 0.5 ml SYRINGE Cancele d [id number] : 2023 0 Pharmac y Data Transac tion Service Facilit y TRULICITY (DULAGLUTID E), 1.5 MG/0.5, PEN INJCTR, SUB-Q, [employer] 0.5 ml SYRINGE Active [id number] 4 2023 2 Pharmac y Data Transac tion Service Facilit y TRULICITY (DULAGLUTID E), 1.5 MG/0.5, PEN INJCTR, SUB-Q, [employer] 0.5 ml SYRINGE Active [id number] 4 2023 2 Pharmac y Data Transac tion Service Facilit y Immunizations Combined list of available immunizations from the Department of Defense and Veterans Affairs facilities. Immunization Series Date Given Administered By Site Reaction Lot Number CVX Code Drug Certified Personal Chef Status Comments Source COVID-19, mRNA, LNP-S, PF, [...] ent DoD Influenza, high dose seasonal 2018 MULYARELISLA, () Not Given Influenza , high dose [...]
--- OUTSIDE RECORDS SUMMARY | 2025-02-10 10:00 | XMS_ITS | Continuity of Care Document ---
Author Organization [facility]. 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) Onset:10-Mar-2023 Comments:Onset [...] Known Drug Allergies(Rio rgy) Onset: 09-Mar-2023 Medications levocetirizine dihydrochlori de 5 MG Oral Tablet [Xyzal];5 MILLIGRAM PO DAILY Start:10-Mar-2023 Comments:5 MG PO DAILY aspirin 81 MG Delayed Releas e Oral [...] PRN Quantity:1 Donna Collins MD Start:09-Mar-2023 Status:Discontinued Comments:[id number] Administration Instructions:GIVE DEXTROSE 50% IF PT CANNOT TAKE PO HAS IVACCESS 50 ML glucose 500 MG/ML Prefilled Syringe;50 MILLILITER PRN Quantity:1 Donna Collins MD Start:09-Mar-2023 Status:Discontinued Comments:[id number] Administration Instructions:GIVE DEXTROSE 50% IF PT CANNOT TAKE PO HAS IVACCESS glucagon (rDNA) 1 MG Injecti on [GlucaGen];1 MILLIGRAM PRN Quantity:1 Donna Collins MD Start:09-Mar-2023 Status:Discontinued Comments:[id number] Administration Instructions:For blood glucose <50 -- OR --symptomatic with blood glucose <60 FOR PT WITH NO IV ACCESS acetaminophen 325 MG Oral Tablet;650 MILLIGRAM Q4H PRN Quantity:2 Donna Collins MD Start:09-Mar-2023 Status:Discontinued Comments:[id number] Administration Instructions:Should not exceed 4000mg of acetaminophen daily ondansetron 2 MG/ML Injectab le Solution [Zofran];4 MILLIGRAM Q6H PRN Quantity:1 Donna Collins MD Start:09-Mar-2023 Status:Discontinued Comments:[id number] glucose 4000 MG Chewable Tablet;4 TABLET PRN Quantity:4 Donna Collins MD Start:09-Mar-2023 Status:Discontinued Comments:[id number] Administration Instructions:FOR BLOOD SUGAR <70 AND ABLE TO EAT/SWALLOW SAFELYEACH TAB = 4 GM DEXTROSE 1 ML morphine sulfate 2 MG/M L Prefilled Syringe;1 MILLIGRAM Q5M PRN Quantity:1 Donna Collins MD Start:09-Mar-2023 Status:Discontinued Comments:[id number] nitroglycerin 0.4 MG Subling ual Tablet [Nitrostat];0.4 MILLIGRAM Q5M PRN Quantity:1 Donna Collins MD Start:09-Mar-2023 Status:Discontinued Comments:[id number] POTASSIUM REPLACEMENT 1 EACH;[id number] Administration Instructions:FOLLOW PROTOCOL Quantity:0 Donna Collins MD Start:09-Mar-2023 Status:Discontinued Comments:[id number] Administration Instructions:FOLLOW PROTOCOL PHOSPHOROUS REPLACEMENT 1 EACH;[id number] Administration Instructions:FOLLOW PROTOCOL Quantity:0 Donna Collins MD Start:09-Mar-2023 Status:Discontinued Comments:[id number] Administration Instructions:FOLLOW PROTOCOL MAGNESIUM REPLACEMENT 1 EACH;[id number] Administration Instructions:FOLLOW PROTOCOL Quantity:0 Donna Collins MD Start:09-Mar-2023 Status:Discontinued Comments:[id number] Administration Instructions:FOLLOW PROTOCOL amLODIPine 5 MG / benazepril hydrochloride 40 MG Oral Capsule;1 CAPSULE PO DAILY Start:09-Mar-2023 Comments:1 CAP PO DAILY omeprazole 40 MG Delayed Release Oral Capsule;40 MILLIGRAM PO DAILY Start:09-Mar-2023 Comments:40 MG PO DAILY atorvastatin 80 MG Oral Tablet;80 MILLIGRAM PO DAILY Start:09-Mar-2023 Comments:80 MG PO DAILY apixaban 5 MG Oral Tablet;5 MILLIGRAM PO BID Start:09-Mar-2023 Comments:5 MG PO BID dronedarone 400 MG Oral Tablet;400 MILLIGRAM PO BID Start:09-Mar-2023 Comments:400 MG PO BID carvedilol 12.5 MG Oral Tablet;12.5 MILLIGRAM PO BID MEALS Start:09-Mar-2023 Comments:12.5 MG PO BID MEALS tadalafil 20 MG Oral Tablet [Cialis];20 MILLIGRAM PO DAILY Start:09-Mar-2023 Comments:20 MG PO DAILY As Needed for unknown TRULICITY;1.5 MILLIGRAM SUBCUTANEOUS Oh Start:09-Mar-2023 Comments:1.5 MG SUBQ Oh Social History Smoking Status Ex-smoker Recorded: 09-Mar-2023
--- OUTSIDE RECORDS SUMMARY | 2025-02-10 10:01 | XMS_ITS | Patient Health Record ---
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 Name Role Phone DR LINDA FRANCES Primary Care Provider KOLBY Flynn [phone] Allergies No Known Allergies Reason For Referral No Information Medications Medication SIG (Take, Route, Frequency, Duration) Notes Start Date End Date Status Isosorbide Mononitrate ER 30 MG 1 tablet in the morning Orally Once a day; Duration: 30 day(s) Active Centrum Silver - as directed Orally Active Carvedilol 12.5 MG 1 tablet with food Orally Twice a day; Duration: 30 day(s) Active Atorvastatin Calcium 40 MG 1 tablet Orally Once a day; Duration: 30 day(s) Active Citalopram Hydrobromide 20 MG 1 tablet Orally Once a day; Duration: 30 day(s) Active Dulaglutide 1.5 MG/0.5ML as directed Subcutaneous Active metFORMIN HCl 1000 MG 1 tablet with a me al Orally Once a day; Duration: 30 day(s) 2X A DAY Active amLODIPine Besy-Benazepril HCl 5-40 MG as directed Orally Active Omeprazole 40 MG 1 capsule 30 minutes before morning meal Orally Once a day; Duration: 30 day(s) Active Problems Problem Type SNOMED Code ICD Code Onset Dates Problem Status W/U Status Risk Notes Problem Type II diabetes mellitus without complication ([id number]) Type 2 diabetes mellitus without complications (E11.9) Active confirmed Problem Age-related osteoporosis without current pathological fracture (M81.0) [...] Date MEDICARE [address] [place] [phone] [id number] GHAZALA LEAVITT Self - patient is the insured 3 [address] [place] [phone] [id number] GHAZALA LEAVITT Self - patient is the insured Medical (General) History Medical History History ICD Code Cardiovascular: Hypertension, Gastrointestinal: Gastric Reflux (GERD), Genitourinary: Sexual Difficulty, Endocrine: Diabetes, Surgical History Surgery Date(Month/Year) Oral Surgery Cardiac Stent Fracture Repair Hospitalization History Reason Date(Month/Year) Hospitalization
[2025-02-10 10:31] VITALS: BP 105/55; PULSE 79; RESP 18; O2SAT 94; BMI 36.9
--- NOTE | 2025-02-10 10:35 | XR_ITS ---
FINAL REPORT CLINICAL HISTORY: Neck pain COMPARISON: None FINDINGS: 4 views of the cervical spine were obtained. There is no acute fracture. There is no malalignment. The vertebrae are normal in height. The disc spaces are preserved. There is mild anterior osteophyte formation at C5-6. IMPRESSION: Mild anterior osteophyte formation without acute process. Reviewed, Interpreted and Dictated by Nael Falcon MD Transcribed by Mary Villa Authenticated and [facility]
--- NOTE | 2025-02-10 10:54 | EXP.PAIN.OV ---
HPI Data of Consult Patient: new to practice Consult date: 02/10/25 Requesting Physician: Nunu Vázquez APRN Primary Care Provider: Huan Rizzo MD Reason for consult: Neck pain, occipital pain, headache History of present illness: Mr. Joyce is a 74 year old male who presents today as a new patient. He is a referral from Dr. Rizzo's office. He rates his pain today as 7 out of 10. Patient states he has had neck pain for over a year and denies any radiating symptoms into his upper extremities. He does state he has a lot of pain with certain movements such as turning his head [id number] or looking up and down. He states he will have an occasional shooting pain with those certain movements. Patient does typically state that the pain is interfering with his ability perform activities of daily living such as cooking and cleaning. Patient is currently in physical therapy however has not noticed significant improvement. He has tried oral medication, heat and ice, topicals, at home stretching exercise for longer than 12 weeks. Patient did think that he had recent x-ray imaging here. Patient does have a heart history and is on blood thinners. His Robe has been reviewed and is appropriate. Pain at rest (0-10 scale): 7 Has patient had previous pain injection?: No Conservative treatment options previously tried: Home exercise plan (Longer than 12 weeks) and Physical Therapy (Ongoing) cc:: CC: Nunu Vázquez APRN [facility] Disclaimer: The information contained in this section may have been updated after the patient was seen, as this information can be updated by other users. Medical History (Updated 02/10/25 @ 11:01 by Nunu Vázquez APRN) CAD (coronary artery disease) Sinusitis Tinnitus T2DM (type 2 diabetes mellitus) HLD (hyperlipidemia) HTN (hypertension), benign Surgical History History of esophagogastroduodenoscopy (EGD) Stented coronary artery History of cardiac catheterization Family History Other Cancer Coronary artery disease Family history of COPD (chronic obstructive pulmonary disease) Social History (Updated 02/10/25 @ 10:48 by Sandra More RN) Smoking Status: Never smoker alcohol intake: never substance use type: denies use current occupational status: retired Travel in the last 8 weeks?: Inside the [place] Contact w/someone who lives/traveled outside US past 30 days?: No Exposure to someone with infectious disease in past 14 days?: No Do you have a fever (greater than 100.4 F or 38 C)?: No Have you tested positive for COVID-19?: No Exposed to someone with COVID-19 in past 14 days?: No Do you have a sore throat?: No Do you have a cough?: No Do you have any weakness?: No Are you experiencing any nausea/vomitting?: No Do you have any diarrhea?: No Are you experiencing any unusual bleeding?: No Do you have any muscle aches/pain?: No Do you have any abdominal pain?: No Are you experiencing loss of taste or smell?: No Review of Systems Review of Systems Review of systems:: pertinent systems reviewed and negative unless documented below Review of systems (narrative): Review of Systems: General: No recent weight changes, no fever, no sleep disturbances Respiratory: No cough, no shortness of air, no recurring pulmonary infections Cardiovascular/peripheral vascular: No chest pain, no palpitations, no edema, no shortness of breath Gastrointestinal: No new onset incontinence, normal bowel movements reported Genitourinary: No new onset incontinence Musculoskeletal: Neck pain, occipital pain, headache Psychiatric: [Normal mood/affect] Neurological: [Denies weakness in extremities], [denies balance issues] Meds Home Medications and Allergies Home Medications ?Medication ?Instructions ?Recorded ?Confirmed ?Type apixaban 5 mg tablet (Eliquis) 5 mg PO BID 12/07/22 02/26/24 History atorvastatin 80 mg tablet 80 mg PO DAILY 12/07/22 02/26/24 History citalopram 20 mg tablet 20 mg PO DAILY 12/07/22 02/26/24 History dulaglutide 1.5 mg/0.5 mL 1.5 mg SQ WEEKLY 12/07/22 02/26/24 History subcutaneous pen injector (Trulicity) pantoprazole 40 mg tablet,delayed 40 mg PO DAILY #30 tabs 11/09/23 02/26/24 Rx release alfuzosin 10 mg tablet,extended 10 mg PO DAILY 02/10/24 02/26/24 History release 24 hr budesonide-formoterol HFA 160 2 puff inhalation BID 02/10/24 02/26/24 History mcg-4.5 mcg/actuation aerosol inhaler fluticasone propionate 50 2 spray intranasal DAILY PRN 02/10/24 02/26/24 History mcg/actuation nasal allergies spray,suspension (Flonase Allergy Relief) ranolazine 1,000 mg 1,000 mg PO BID 02/10/24 02/26/24 History tablet,extended release,12 hr bumetanide 1 mg tablet 1 mg PO DAILY #30 tabs 02/13/24 02/26/24 Rx carvedilol 12.5 mg tablet 6.25 mg (1/2 x 12.5 mg) PO BID bp 02/13/24 02/26/24 Rx 30 days #0 tabs isosorbide mononitrate 30 mg 30 mg PO DAILY 30 days #30 tabs 02/13/24 02/26/24 Rx tablet,extended release 24 hr sacubitril 24 mg-valsartan 26 mg 1 tab PO BID 30 days #60 tabs 02/13/24 02/26/24 Rx tablet (Entresto) amlodipine 2.5 mg-benazepril 10 mg 1 cap PO 02/26/24 02/26/24 History capsule empagliflozin 10 mg tablet 10 mg PO 02/26/24 02/26/24 History (Jardiance) Held on 02/26/24. Instructions: Doctor's Order penicillin V potassium 500 mg 500 mg PO BID 10 days #20 tabs 11/30/24 Rx tablet New Prescriptions to Start Prescriptions: Allergies Allergy/AdvReac Type Severity Reaction Status Date / Time No Known Allergies Allergy Verified 02/26/24 13:59 Objective Narrative: Physical Exam: General: Alert and oriented x3, no acute distress, pleasant and cooperative Lungs: Respirations even and unlabored, symmetrical chest expansion Eyes: PERRL Musculoskeletal: Flexion and extension of cervical [spine] somewhat guarded secondary to pain, [antalgic gait noted] positive Kemps test Neurological: Speech clear, no gross sensory deficit Assessment and Plan *Assessment and plan (1) Neck pain: Status: Acute Category: Medical Code(s): M54.2 - Cervicalgia (2) Occipital pain: Status: Acute Category: Medical Code(s): R51.9 - Headache, unspecified (3) Facet arthropathy, cervical: Status: Acute Category: Medical Code(s): M47.812 - Spondylosis without myelopathy or radiculopathy, cervical region Plan Patient is experiencing significant pain in his neck that is worse with bending, twisting or lifting. Patient does state that it does interfere with his ability perform activities of daily living such as cooking and cleaning. Patient did have limited range of motion of his cervical spine with a positive Kemps test during today's visit. I did discuss with the patient that I do believe he would benefit from a cervical medial branch block. Risk and benefits were discussed with the patient and he would like to proceed forward with this plan of care. Patient has tried and failed conservative therapy including oral medications, heat and ice, topicals, ongoing physical therapy and continued at home stretching exercise for longer than 12 weeks that was physician guided. Patient has been experiencing chronic neck pain for longer than a year. Patient was counseled that if he does get significant relief with his first cervical medial branch block that we will plan on repeating it with the plan to progress forward to a cervical RFA at a later date. Patient agrees with this plan of care. Patient will be scheduled for his first diagnostic cervical medial branch block bilaterally C4-C5 and C5-C6 under fluoroscopy. Patient will also be ordered compounded cream and we will put in a x-ray order of his cervical spine. Patient has been instructed to contact the clinic with any concerns before the next appointment. Dr. Valladares has reviewed this note and agrees with this plan of care. This note was dictated using voice recognition software and make contain errors or omissions. All injections are used with Lidocaine, Bupivacaine and Depo Medrol unless diagnostic which has no steroids. Occasionally urine drug screen is needed to verify patient's compliance with our office pain contract. This is ordered based off specific treatments related to chronic pain with the potential to abuse certain medications.
== END 2025-02-10 23:59 | disposition home or self-care (01) ==
PROVIDERS: PCP Internal Medicine Adolescent Medicine; Visit Provider Nurse Practitioner Family
DX: R51.9 Headache, unspecified (principal); M47.812 Spondylosis without myelopathy or radiculopathy, cervical region
CPT/HCPCS: 72040; 99202; G0463

== ENCOUNTER 2025-04-01 13:00 | Day surgery (SDC) | payer MEDICARE, OTHER, SELFPAY ==
[2025-04-01 13:00] VITALS: BP 127/59; PULSE 69; RESP 18; O2SAT 95; BMI 35.7
[2025-04-01 13:03] VITALS: BP 117/87; PULSE 71; RESP 18; O2SAT 96
[2025-04-01] MEDS: BUPIVACAINE 0.25% 10ML INJ 25 MG IJ (13:15)
[2025-04-01] MEDS: LIDOCAINE 1% 5ML PF VIAL 5 ML (13:16)
[2025-04-01 13:29] VITALS: BP 126/54; PULSE 66; RESP 16; O2SAT 96
[2025-04-01] MEDS: IOPAMIDOL-200 (41%);10ML VIAL 3 ML IV (13:33)
--- NOTE | 2025-04-01 13:56 | EXP.PAIN.PRO ---
Procedure Date: 04/01/25 Time: 13:10 Anesthesiologist:: Myke Stein CRNA Complications:: None Pre-procedure Diagnosis:: Degenerative disc cervical spine multilevels. Cervical radiculopathy. Cervical spondylosis. Multilevel cervical facet arthropathy. Post-procedure Diagnosis:: Same. Indications for Procedure:: Patient is a very pleasant 74-year-old male who comes our clinic today for round 1 of diagnostic cervical medial branch blocks/facet injections at the C5-6, C6-7 level. Patient describes posterior cervical neck pain as constant, dull, aching. He reports having some radicular symptoms into the bilateral trapezius muscles. He rates his pain 7/10. Procedure Details:: Informed consent was obtained and the risk and benefits of the procedure was explained to the patient. Patient was taken to the procedure room where noninvasive monitors were placed, including noninvasive blood pressure cuff as well as pulse oximeter. The area over the posterior cervical spine was cleansed using chlorhexidine as a cleansing solution. I anesthetized the skin and subcutaneous tissues with 1% Lidocaine. I placed 25 -gauge spinal needles into the facet joint/ medial branches of C5-6, C6-7 bilaterally. Needle placement was confirmed with fluoroscopy. After confirmation of needle placement, each site was injected with 1 mL of 1% lidocaine and 0.25 % Marcaine and 5 mg of dexamethasone. Patient tolerated the procedure without difficulty. There were no complications. Patient was discharged without incident. Plan and Disposition:: Patient was discharged without incident.
== END 2025-04-01 13:29 | disposition home or self-care (01) ==
LOC: SC.PAINP 13:01
PROVIDERS: PCP Internal Medicine Adolescent Medicine; Visit Provider Nurse Anesthetist, Certified Registered
DX: M47.816 Spondylosis without myelopathy or radiculopathy, lumbar region (principal); M50.122 Cervical disc disorder at C5-C6 level with radiculopathy; M50.123 Cervical disc disorder at C6-C7 level with radiculopathy; I25.10 Atherosclerotic heart disease of native coronary artery without angina pectoris; E78.5 Hyperlipidemia, unspecified; I10 Essential (primary) hypertension; E11.9 Type 2 diabetes mellitus without complications; Z95.5 Presence of coronary angioplasty implant and graft; Z79.85 Long-term (current) use of injectable non-insulin antidiabetic drugs; Z79.899 Other long term (current) drug therapy
CPT/HCPCS: 64490; 64491; J0665; J2003; Q9966

== ENCOUNTER 2025-04-03 15:00 | Outpatient (RCR) | payer MEDICARE, OTHER, SELFPAY ==
--- NOTE | 2025-03-17 15:48 | HMH.RHREAS ---
Rehab Reassessment Rehab OP Re-assessment Start: 03/17/25 15:12 Freq: Status: Active Protocol: Document 03/17/25 15:17 MIKAEL (Rec: 03/17/25 15:48 MIKAEL [id number]) E-signed By Nunu Barroso PT Neck Disability Index Neck Disability Index Section 1: Pain The pain is very mild at moment Intensity Section 2: Personal I can look after myself normally but it causes extra Care (washing, pain dressing, etc.) Section 3: Lifting I can lift heavy weights but it gives extra pain Section 4: Reading I can read as much as I want to with slight pain in my neck Section 5: Headaches I have moderate headaches, which come frequently Section 6: I can concentrate fully when I want to with no Concentration difficulty Section 7: Work I can only do my usual work, but no more Section 8: Driving I can drive my car as long as I want with slight pain in my neck Section 9: Sleeping My sleep is midly disturbed (1-2 hrs sleepless) Section 10: I am able to engage in all my recreation activities Recreation with some pain in NDI Score 12 Rehab Re-assessment Subjective Subjective Pt reports he has not attended PT in 38 days due to having visitors, being sick a few days, and driving his ex back to [place]. Pt reports he has performed his HEP every once in awhile but not as prescribed. Pt reports he feels 50% overall in regards to R sided neck pain. Pt continues to report R sided neck pain with turning his head to the L>R side although feels that his mobility has improved with right rotation. 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 Pt reports he is scheduled to have an injection at pain management later this month. Objective Objective Notes TTP: 2/4 TTP of R C2-3, C3-4, C5-6 motion segments, R cervical PS, upper trapezius and levator scap mm Cervical AROM: flex 65, ext 25, RLF 30, LLF 40, Rrot 60 , Lrot 45 Assessment Assessment Notes Pt has attended only 5 PT treatment since his initial evaluation performed on 01/20/25 and verbalized only intermittent compliance with HEP. Pt demonstrated 1 point regression in NDI and subjective report of pain at worst since the initial evaluation. Pt did however demonstrated improved cervical AROM in all planes. Pt educated on importance of compliance with PT POC and HEP to assist with progress. Overall, the pt would continue to benefit from skilled PT to further improve subjective report of pain, cervical ROM, and cervical/ scapular strength to assist with overall QOL and function. PT Patient Goals PT Short Term 2 weeks: 0/4 Patient Goals 1. C-spine by 5 deg all dir -NOT MET (L rotation) 2. NDI 9 or less -NOT MET 3. 4/10 with turning head -NOT MET 4. Verbalize compliance with independent HEP -NOT MET PT Cctv Technician Patient 4 weeks: 2/4 Goals 1. C-spine extension by 15 deg -MET 2. perform household activity without pain -MET 3. NDI 6 or less -NOT MET 4. 2/10 when turning head -NOT MET 5. Independent with advanced HEP Plan Plan Continue POC to address above deficits Frequency of Therapy 2x/week Duration of Therapy 4 more weeks Therapeutic Exercise Yes Including Home Exercise Program Manual Therapy Yes Techniques Neuromuscular Re- Yes education Therapeutic Yes Activities to Return to Previous Functional/Work Level ADL/Self Care Yes Education Mechanical Traction Yes Dry Needling Yes Thermal Modalities Yes Electrical Yes Stimulation Ultrasound/ Yes Phonophoresis Iontophoresis Yes Orthotics/Bracing/ Yes Splinting Massage Yes Group Therapy for Yes Medicare Eval/Re-Eval Yes Time and Billing Re-Eval Time 10 Re-Eval Billing 0 Units Charge for PT No reassessment? Charge for OT No reassessment? PHYSICIAN CERTIFICATION: I certify the specified therapy services for Sumanth Joyce are required, authorized, and reviewed every 30 days.
== END 2025-04-03 23:59 | disposition home or self-care (01) ==
LOC: PT 15:00
PROVIDERS: PCP Internal Medicine Adolescent Medicine; Visit Provider Internal Medicine Adolescent Medicine
DX: M54.2 Cervicalgia (principal)
CPT/HCPCS: 97014; 97110; G0283

== ENCOUNTER 2025-06-24 15:16 | Outpatient (CLI) | payer MEDICARE, OTHER, SELFPAY ==
--- NOTE | 2025-06-24 15:21 | XR_ITS ---
FINAL REPORT CLINICAL HISTORY: right tib/fib pain COMPARISON: 03/20/2023 FINDINGS: RIGHT TIBIA AND FIBULA There is no acute fracture or dislocation. The joint spaces are intact. There are minimal degenerative changes of the knee and patella. Patellar enthesophytes are again noted. There is no soft tissue abnormality. IMPRESSION: No acute fracture Reviewed, Interpreted and Dictated by Zander Logan MD Transcribed by Bekah Herrera Authenticated and [facility]
== END 2025-06-24 23:59 | disposition home or self-care (01) ==
LOC: RAD 15:17
PROVIDERS: PCP Internal Medicine Adolescent Medicine; Visit Provider Student in an Organized Health Care Education/Training Program
DX: M17.11 Unilateral primary osteoarthritis, right knee (principal)
CPT/HCPCS: 73590